=== PATIENT | female | born 2000 | race Caucasian/White ===

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

== ENCOUNTER 2021-01-31 21:30 | Emergency (ER) | payer MEDICAID ==
[2021-01-31 22:23] LABS: Appearance SLIGHTLY CLOUDY (CLEAR); Bilirubin NEGATIVE (NEGATIVE); Blood NEGATIVE Ery/ul (0-5); Epithelial Cells RARE /HPF (FEW); Glucose NEGATIVE (NEGATIVE); Hyaline Casts 0-2 /LPF (0-2); Ketones NEGATIVE (NEGATIVE); Leukocyte Esterase NEGATIVE (NEGATIVE); Mucus SLIGHT /HPF (NEGATIVE); Nitrite NEGATIVE (NEGATIVE); Protein,Urine Dip NEGATIVE (Negative); Specific Gravity 1.027 (1.005-1.025); Urobilinogen NEGATIVE mg/dL (0-1)
--- NOTE | 2021-01-31 23:28 | ERPHSYRPT ---
- History of Present Illness Time Seen by Provider: 01/31/21 21:45 Historian: patient Exam Limitations: no limitations Patient Subjective Stated Complaint: pt states she began having pain approx 1 hour prior to coming to er on her lt abd. states she has a history of ovarian cysts and pain feels similar Triage Nursing Assessment: pt alert and oriented, answers questions approp. pt ambulatory with steady gait noted. respiaitons nonlabored with lungs cta. abd soft and nontender to light palpation. bowel sounds present x4. Physician History: Patient is a 20-year-old female presents to our ED with complaints of left flank pain. Pain started approximately 1 hour prior to arrival. Pain described as an ache that is localized. No radiation. Patient has a history of ovarian cyst. Patient states the pain is similar. No trauma no fever. No nausea or vomiting. Patient is concerned as she states she had intercourse approximately 5 days ago. Patient wants to be sure she is not . Patient is otherwise heal thy and asymptomatic. Timing/Duration: today Activities at Onset: none Quality: aching Abdominal Pain Onset Location: flank Pain Radiation: no radiation Severity of Pain-Max: moderate Severity of Pain-Current: none Modifying Factors: Improves With: nothing Associated Symptoms: denies symptoms Previous symptoms: same symptoms as today Allergies/Adverse Reactions: Penicillins Allergy (Severe, Verified 11/05/20 00:05) Rash Home Medications: Fluoxetine HCl 20 mg [Prozac 20 MG] 30 mg PO DAILY 05/04/19 [History] Hx Tetanus, Diphtheria Vaccination/Date Given: Yes Hx Influenza Vaccination/Date Given: Yes Hx Pneumococcal Vaccination/Date Given: No Immunizations Up to Date: Yes Travel Risk - International Travel Have you traveled outside of the country in past 3 weeks: No - Coronavirus Screening Are you exhibiting any of the following symptoms?: No Close contact with a COVID-19 positive Pt in past 14-21 Days: No - Vaccine Status Have you recieved a Covid-19 vaccination: No - Review of Systems Constitutional: No Symptoms, No Fever, No Chills Eyes: No Symptoms Ears, Nose, & Throat: No Symptoms Respiratory: No Cough, No Dyspnea Cardiac: No Chest Pain, No Edema, No Syncope Abdominal/Gastrointestinal: No Abdominal Pain, No Nausea, No Vomiting, No Diarrhea Genitourinary Symptoms: No Dysuria Musculoskeletal: No Back Pain, No Neck Pain Skin: No Rash Neurological: No Dizziness, No Focal Weakness, No Sensory Changes Psychological: No Symptoms Endocrine: No Symptoms All Other Systems: Reviewed and Negative - Past Medical History Pertinent Past Medical History: Yes Neurological History: No Pertinent History ENT History: No Pertinent History Cardiac History: No Pertinent History Respiratory History: No Pertinent History Endocrine Medical History: No Pertinent History Musculoskeletal History: No Pertinent History GI Medical History: Gallbladder Disease History: No Pertinent History Psycho-Social History: Depression Female Reproductive Disorders: Menstrual Problems, Other Other Medical History: ovarian cyst - Past Surgical History Past Surgical History: Yes Neuro Surgical History: No Pertinent History Cardiac: No Pertinent History Respiratory: No Pertinent History Gastrointestinal: Cholecystectomy Genitourinary: No Pertinent History Musculoskeletal: No Pertinent History Female Surgical History: Other Other Surgical History: tonsils, ovarian cyst - Social History Smoking Status: Never smoker Exposure to second hand smoke: Yes Drug Use: none Patient Lives Alone: No Significant Family History: no pertinent family hx - Female History Hx Last Menstrual Period: last month Hx Now: No - Nursing Vital Signs Nursing Vital Signs: Initial Vital Signs Pulse Rate 107 H 01/31/21 21:37 Respiratory Rate 18 01/31/21 21:37 Blood Pressure 112/79 01/31/21 21:37 O2 Sat by Pulse Oximetry 98 01/31/21 21:37 Pain Scale Pain Intensity 4 - Physical Exam General Appearance: no apparent distress, alert Eye Exam: PERRL/EOMI, eyes nml inspection Ears, Nose, Throat Exam: normal ENT inspection, pharynx normal, moist mucous membranes Neck Exam: normal inspection, non-tender, supple, full range of motion Respiratory Exam: normal breath sounds, lungs clear, No respiratory distress Cardiovascular Exam: regular rate/rhythm, normal heart sounds Gastrointestinal/Abdomen Exam: soft, other (Mild tenderness to palpation at left flank.), No tenderness, No mass Back Exam: normal inspection, normal range of motion, No CVA tenderness, No vertebral tenderness Extremity Exam: normal inspection, normal range of motion, pelvis stable Neurologic Exam: alert, oriented x 3, cooperative, normal mood/affect, nml cerebellar function, sensation nml, No motor deficits Skin Exam: normal color, warm, dry Lymphatic Exam: No adenopathy SpO2 Interpretation: normal SpO2: 96 O2 Delivery: Room Air - Course Nursing assessment & vital signs reviewed: Yes - CT Exams Abdomen/Pelvis CT Interpretation: Tele-radiologist Report (There is a right ovarian cyst measuring 2.1 cm and left ovarian cyst measuring 1.[address] cm[address] No other acute CT pathology.) Ordered Tests: Active Orders 24 hr Category Date Time Status ABDOMEN AND PELVIS W/0 CONTRAS [CT] Stat Exams 01/31/21 22:14 Taken HCG,QUALITATIVE URINE Stat Lab 01/31/21 22:20 Completed UA W/RFX UR CULTURE Stat Lab 01/31/21 22:20 Completed Lab/Rad Data: Laboratory Results 01/31/21 01/31/21 Range/Units 22:20 22:20 Urine Color YELLOW (YELLOW) Urine Appearance SLIGHTLY CLOUDY (CLEAR) Urine pH 6.0 (5-6) Ur Specific [place] 1.027 (1.005-1.025) Urine Protein NEGATIVE (Negative) Urine Ketones NEGATIVE (NEGATIVE) Urine Blood NEGATIVE (0-5) Kavon/ul Urine Nitrite NEGATIVE (NEGATIVE) Urine Bilirubin NEGATIVE (NEGATIVE) Urine Urobilinogen NEGATIVE (0-1) mg/dL Ur Leukocyte Esterase NEGATIVE (NEGATIVE) Urine WBC (Auto) NONE (0-5) /HPF Urine RBC (Auto) NONE (0-2) /HPF U Hyaline Cast (Auto) 0-2 (0-2) /LPF U Epithel Cells (Auto) RARE (FEW) /HPF Urine Bacteria (Auto) NONE (NEGATIVE) /HPF Urine Mucus (Auto) SLIGHT (NEGATIVE) /HPF Urine Culture Reflexed NO (NO) Urine Glucose NEGATIVE (NEGATIVE) mg/dL Urine HCG, Qual NEGATIVE (Negative) - Progress Progress: improved Progress Note: Patient reassessed. Patient declined pain medication. She did not want a IM shot. She continues to decline pain medication. Patient sleeping states she feels well. CT scan shows bilateral ovarian cyst. Otherwise negative. Urinalysis negative. Vital stable. Will discharge at this time. Patient agrees to follow-up with her primary care doctor within 48 hours for reevaluation. 02/01/21 00:31 02/01/21 00:31 Counseled pt/family regarding: lab results, diagnosis, rad results - Departure Departure Disposition: Home Clinical Impression: Flank pain, Hepatic steatosis, Ovarian cyst Condition: Stable Critical Care Time: No Referrals: LUCY OLIVEIRA [Primary Care Provider] - Additional Instructions: Discharge/Care Plan ANTONI GUZMAN was seen on 02/01/21 in the Emergency Room. The patient was counseled regarding Diagnosis,Lab results, Imaging studies, need for follow up and when to return to the Emergency Room. Prescriptions given: Discharge Note I have spoken with the patient and/or caregivers. I have explained the patient's condition, diagnosis and treatment plan based on the information available to me at this time. I have answered the patient's and/or caregiver's questions and addressed any concerns. The patient and/or caregivers have as good understanding of the patient's diagnosis, condition and treatment plan as can be expected at this point. The vital signs have been stable. The patient's condition is stable and appropriate for discharge from the emergency department. The patient will pursue further outpatient evaluation with the primary care physician or other designated or consulting physician as outlined in the discharge instructions. The patient and/or caregivers are agreeable to this plan of care and follow-up instructions have been explained in detail. The patient and/or caregivers have received these instruction. The patient/and or caregivers are aware that any significant change in condition or worsening of symptoms should prompt an immediate return to this or the closest emergency department or call 911.
[2021-02-01 00:50] VITALS: BP 106/60; PULSE 87; O2SAT 98
--- NOTE | 2021-02-01 08:51 | XRAY ---
Indication: Left pelvic pain. Chronic bilateral flank pain. Multiple contiguous axial images obtained through the abdomen and pelvis without contrast using renal stone protocol. Comparison: June 04, 2020. Lung bases remain clear of infiltrate and effusion. Heart is not enlarged. No renal calculus or evidence for obstructive uropathy in either system. Noncontrasted stomach and bowel loops remain nonobstructed with normal appendix. New 2.5 cm right ovary cyst and stable 1.6 cm left ovary cyst. No free fluid/air. There remains diffuse fatty liver with central fatty sparing and previous cholecystectomy. Scattered small subcentimeter mesenteric nodes with minimal stranding favoring adenitis. Remaining liver, pancreas, spleen, adrenal glands, kidneys, ureters, bladder, uterus, and aorta appear unremarkable for noncontrast exam. Osseous structures intact. No ventral or inguinal hernias. Impression: 1. Continued negative for renal calculus or evidence for obstructive uropathy. 2. Again scattered small mesenteric nodes with minimal stranding favoring adenitis. 3. Bilateral ovary cysts, largest on the right. Pelvic sonogram may yield further information if clinically warranted. 4. Stable fatty liver. Comment: Preliminary interpretation was made by [facility]. No critical discrepancy.
== END 2021-02-01 00:51 | disposition home or self-care (01) ==
LOC: ED 21:30
DX: R10.9 Unspecified abdominal pain (principal); K76.0 Fatty (change of) liver, not elsewhere classified; N83.209 Unspecified ovarian cyst, unspecified side
CPT/HCPCS: 74176; 81001; 84703; 99284

== ENCOUNTER 2021-04-13 19:54 | Emergency (ER) | payer MEDICAID ==
[2021-04-13] MEDS ORDERED: Sodium Chloride 0.9% 1000 ML 1,000 ML IV STA (20:52)
[2021-04-13 21:06] LABS: Hemoglobin 12.8 gm/dl (12.0-16.0); Mean Cell Volume 85.5 fl (78-100); Mean Corpuscular Hemoglobin 26.1 pg (26-32); Mean Corpuscular Hgb Concent. 30.5 g/dl (32-36); Mean Platelet Volume 12.1 fl (7.5-11.0); Platelet Count 291 K/mm3 (150-450); Red Blood Count 4.91 M/mm3 (4.1-5.4); Red Cell Distribution Width 16.4 % (11.5-14.0); White Blood Count 8.4 K/mm3 (4.0-10.5)
[2021-04-13] MEDS ORDERED: Sodium Chloride 0.9% 1000 ML 1,000 ML ONE (21:10)
[2021-04-13] MEDS ORDERED: TORAdol 30 mg Injection ONE (21:10)
[2021-04-13] MEDS ORDERED: TORAdol 30 mg Injection IV ONE (21:12)
[2021-04-13 21:18] LABS: ALBUMIN 4.8 g/dL (3.5-5.0); ALKALINE PHOSPHATASE 100 U/L (38-126); AMYLASE 42 U/L (30-110); ANION GAP 17.4 MEQ/L (5-15); BLOOD UREA NITROGEN 14 mg/dL (7-17); CHLORIDE 105 mmol/L (98-107); Calcium 10.1 mg/dL (8.4-10.2); Carbon Dioxide 26 mmol/L (22-30); Creatinine 1 0.63 mg/dL (0.52-1.04); EST GLOMERULAR FILTRATION RATE > 60.0 ML/MIN; Glucose 117 mg/dL (74-106); LIPASE 14 U/L (23-300); Potassium 3.9 mmol/L (3.5-5.1); SGOT/AST 49 U/L (14-36); SGPT/ALT 40 U/L (0-35); SODIUM 145 mmol/L (137-145); Total Protein 8.1 g/dL (6.3-8.2)
--- NOTE | 2021-04-13 21:56 | ERPHSYRPT ---
- History of Present Illness Historian: patient Exam Limitations: no limitations Patient Subjective Stated Complaint: "My side hurts." Triage Nursing Assessment: 20 y/o obese white female from home with her boyfriend for two day onset of left flank/abdominal pain. Denied past history of kidney stones or abdominal pathologies. History of ovarian cysts and dysmenorrhea. Denied N/V/D. Denied contacting her family physician. She is a poor historian and unable to recall when her own menstrual cycle began. She continually asks her boyfriend how to answer her questions. Symmetrical chest expansion. heart tones S1/S2 RRR. Lungs vesicular with adequate airflow. Abdomen obese non-distended with bowel sounds present in all quadrants. No palpable tenderness, rebound, or guarding. Peripheral pulses +3 bilateral. Physician History: 20 yo wf w L sided abdominal pain x 1 day. Pain is sharp and 10 on scale. Lying down makes the pain worse. She denies N/V/D/fever/melena/hematochezia/. Pt currently on her period. Timing/Duration: yesterday Activities at Onset: rest Quality: sharpness Abdominal Pain Onset Location: LUQ, LLQ Pain Radiation: no radiation Severity of Pain-Max: severe Severity of Pain-Current: severe Modifying Factors: Improves With: lying down (Mkes worse) Associated Symptoms: No back, No chest pain, No diaphoresis, No diarrhea, No fever/chills, No fatigue, No headache, No heartburn, No loss of appetite, No nausea, No neck pain, No rash, No shortness of breath, No syncope, No vomiting, No weakness Previous symptoms: same symptoms as today Allergies/Adverse Reactions: Penicillins Allergy (Severe, Verified 04/13/21 20:03) Rash Home Medications: Fluoxetine HCl 20 mg [Prozac 20 MG] 30 mg PO DAILY 05/04/19 [History] Hx Tetanus, Diphtheria Vaccination/Date Given: Yes Hx Influenza Vaccination/Date Given: Yes Hx Pneumococcal Vaccination/Date Given: No Travel Risk - International Travel Have you traveled outside of the country in past 3 weeks: No - Coronavirus Screening Are you exhibiting any of the following symptoms?: No Close contact with a COVID-19 positive Pt in past 14-21 Days: No - Vaccine Status Have you recieved a Covid-19 vaccination: No - Review of Systems Constitutional: No Symptoms Eyes: No Symptoms Ears, Nose, & Throat: No Symptoms Respiratory: No Symptoms Cardiac: No Symptoms Genitourinary Symptoms: No Symptoms Musculoskeletal: No Symptoms Skin: No Symptoms Neurological: No Symptoms Psychological: No Symptoms Endocrine: No Symptoms Hematologic/Lymphatic: No Symptoms Immunological/Allergic: No Symptoms - Past Medical History Pertinent Past Medical History: Yes Neurological History: No Pertinent History ENT History: No Pertinent History Cardiac History: No Pertinent History Respiratory History: No Pertinent History Endocrine Medical History: No Pertinent History Musculoskeletal History: No Pertinent History GI Medical History: Gallbladder Disease History: No Pertinent History Psycho-Social History: Depression Female Reproductive Disorders: Menstrual Problems, Other Other Medical History: ovarian cyst - Past Surgical History Past Surgical History: Yes Neuro Surgical History: No Pertinent History Cardiac: No Pertinent History Respiratory: No Pertinent History Gastrointestinal: Cholecystectomy Genitourinary: No Pertinent History Musculoskeletal: No Pertinent History Female Surgical History: Other Other Surgical History: tonsils, ovarian cyst - Social History Smoking Status: Current every day smoker Exposure to second hand smoke: Yes Drug Use: none Patient Lives Alone: No Significant Family History: no pertinent family hx - Female History Hx Last Menstrual Period: 04/09/21 Hx Now: No - Nursing Vital Signs Nursing Vital Signs: Initial Vital Signs Temperature 97.7 F 04/13/21 19:54 Pulse Rate 104 H 04/13/21 19:54 Respiratory Rate 18 04/13/21 19:54 Blood Pressure 129/82 04/13/21 19:54 O2 Sat by Pulse Oximetry 96 04/13/21 19:54 Pain Scale Pain Intensity 5 - Physical Exam General Appearance: no apparent distress Eye Exam: PERRL/EOMI, eyes nml inspection Ears, Nose, Throat Exam: normal ENT inspection, TMs normal, pharynx normal, moist mucous membranes Neck Exam: normal inspection, non-tender, supple, full range of motion, No meningismus, No mass, No Brudzinski, No Kernig's Respiratory Exam: normal breath sounds, lungs clear, airway intact Cardiovascular Exam: regular rate/rhythm, normal heart sounds, normal peripheral pulses, No murmur Gastrointestinal/Abdomen Exam: soft, tenderness (Mild LUQ/LLQ ttp wo guarding or rebound) Back Exam: normal inspection, normal range of motion, No CVA tenderness, No vertebral tenderness Extremity Exam: normal inspection, normal range of motion Neurologic Exam: alert, oriented x 3, cooperative, pharmacy services representative II-XII nml as tested, normal mood/affect, nml cerebellar function, nml station & gait, sensation nml, No motor deficits, No sensory deficit Skin Exam: normal color, warm, dry, No rash Lymphatic Exam: No adenopathy SpO2 Interpretation: normal SpO2: 99 O2 Delivery: Room Air - Course Nursing assessment & vital signs reviewed: Yes Ordered Tests: Active Orders 24 hr Category Date Time Status IV Insertion STAT Care 04/13/21 20:33 Completed AMYLASE Stat Lab 04/13/21 20:52 Completed CBC W DIFF Stat Lab 04/13/21 20:52 Completed CMP Stat Lab 04/13/21 20:52 Completed CULTURE,URINE Stat Lab 04/13/21 22:05 Received LIPASE Stat Lab 04/13/21 20:52 Completed Manual Differential NC Stat Lab 04/13/21 20:52 Completed UA W/RFX UR CULTURE Stat Lab 04/13/21 22:05 Completed Medication Summary Discontinued Medications Generic Name Dose Route Start Last Admin Trade Name Rohini PRN Reason Stop Dose Admin Sodium Chloride 1,000 mls @ 999 mls/hr 04/13/21 20:52 04/13/21 22:49 Sodium Chloride 0.9% 1000 Ml IV 04/13/21 21:52 Infused .Q1H1M STA Infusion Sodium Chloride Confirm 04/13/21 21:10 Sodium Chloride 0.9% 1000 Ml Administered 04/13/21 21:11 Dose 1,000 mls @ ud .ROUTE .STK-MED ONE Ketorolac Tromethamine 30 mg 04/13/21 21:12 04/13/21 21:13 Toradol 30 Mg Injection IV 04/13/21 21:13 30 mg STAT ONE Administration Ketorolac Tromethamine Confirm 04/13/21 21:10 Toradol 30 Mg Injection Administered 04/13/21 21:11 Dose 30 mg .ROUTE .STK-MED ONE Nitrofurantoin Macrocrystals 100 mg 04/13/21 22:34 04/13/21 22:48 Macrobid 100mg Capsule PO 04/13/21 22:35 100 mg STAT ONE Administration Nitrofurantoin Macrocrystals Confirm 04/13/21 22:46 Macrobid 100mg Capsule Administered 04/13/21 22:47 Dose 100 mg .ROUTE .STK-MED ONE Lab/Rad Data: Laboratory Result Diagrams 04/13/21 20:52 04/13/21 20:52 Laboratory Results 04/13/21 04/13/21 04/13/21 Range/Units Unknown 22:05 20:52 WBC (4.0-10.5) K/mm3 RBC (4.1-5.4) M/mm3 Hgb (12.0-16.0) gm/dl Hct (35-47) % MCV (78-100) fl MCH (26-32) pg MCHC (32-36) g/dl RDW (11.5-14.0) % Plt Count (150-450) K/mm3 MPV (7.5-11.0) fl Segmented Neutrophils (36.0-66.0) % Lymphocytes (Manual) (24-44) % Monocytes (Manual) (0.0-12.0) % Eosinophils (Manual) (0.00-3.0) % Basophils (Manual) (0.0-1.0) % Platelet Estimate (NORMAL) RBC Morphology Sodium 145 (137-145) mmol/L Potassium 3.9 (3.5-5.1) mmol/L Chloride 105 (98-107) mmol/L Carbon Dioxide 26 (22-30) mmol/L Anion Gap 17.4 H (5-15) MEQ/L BUN 14 (7-17) mg/dL Creatinine 0.63 (0.52-1.04) mg/dL Estimated GFR > 60.0 ML/MIN Glucose 117 H (74-106) mg/dL Calcium 10.1 (8.4-10.2) mg/dL Total Bilirubin 0.20 (0.2-1.3) mg/dL AST 49 H (14-36) U/L ALT 40 H (0-35) U/L Alkaline Phosphatase 100 (38-126) U/L Serum Total Protein 8.1 (6.3-8.2) g/dL Albumin 4.8 (3.5-5.0) g/dL Amylase 42 (30-110) U/L Lipase 14 L (23-300) U/L Serum , Qual NEGATIVE (Negative) Urine Color YELLOW (YELLOW) Urine Appearance CLOUDY (CLEAR) Urine pH 5.0 (5-6) Ur Specific [place] 1.028 (1.005-1.025) Urine Protein 30 (Negative) Urine Ketones NEGATIVE (NEGATIVE) Urine Blood LARGE (0-5) Kavon/ul Urine Nitrite NEGATIVE (NEGATIVE) Urine Bilirubin NEGATIVE (NEGATIVE) Urine Urobilinogen NEGATIVE (0-1) mg/dL Ur Leukocyte Esterase SMALL (NEGATIVE) Urine WBC (Auto) 16-25 (0-5) /HPF Urine RBC (Auto) >101 (0-2) /HPF U Epithel Cells (Auto) RARE (FEW) /HPF Urine Bacteria (Auto) MODERATE (NEGATIVE) /HPF Urine Mucus (Auto) MANY (NEGATIVE) /HPF Urine Culture Reflexed YES (NO) Urine Glucose NEGATIVE (NEGATIVE) mg/dL 04/13/21 Range/Units 20:52 WBC 8.4 (4.0-10.5) K/mm3 RBC 4.91 (4.1-5.4) M/mm3 Hgb 12.8 (12.0-16.0) gm/dl Hct 42.0 (35-47) % MCV 85.5 (78-100) fl MCH 26.1 (26-32) pg MCHC 30.5 L (32-36) g/dl RDW 16.4 H (11.5-14.0) % Plt Count 291 (150-450) K/mm3 MPV 12.1 H (7.5-11.0) fl Segmented Neutrophils 61 (36.0-66.0) % Lymphocytes (Manual) 31 (24-44) % Monocytes (Manual) 5 (0.0-12.0) % Eosinophils (Manual) 1 (0.00-3.0) % Basophils (Manual) 2 H (0.0-1.0) % Platelet Estimate NORMAL (NORMAL) RBC Morphology NORMAL Sodium (137-145) mmol/L Potassium (3.5-5.1) mmol/L Chloride (98-107) mmol/L Carbon Dioxide (22-30) mmol/L Anion Gap (5-15) MEQ/L BUN (7-17) mg/dL Creatinine (0.52-1.04) mg/dL Estimated GFR ML/MIN Glucose (74-106) mg/dL Calcium (8.4-10.2) mg/dL Total Bilirubin (0.2-1.3) mg/dL AST (14-36) U/L ALT (0-35) U/L Alkaline Phosphatase (38-126) U/L Serum Total Protein (6.3-8.2) g/dL Albumin (3.5-5.0) g/dL Amylase (30-110) U/L Lipase (23-300) U/L Serum , Qual (Negative) Urine Color (YELLOW) Urine Appearance (CLEAR) Urine pH (5-6) Ur Specific [place] (1.005-1.025) Urine Protein (Negative) Urine Ketones (NEGATIVE) Urine Blood (0-5) Kavon/ul Urine Nitrite (NEGATIVE) Urine Bilirubin (NEGATIVE) Urine Urobilinogen (0-1) mg/dL Ur Leukocyte Esterase (NEGATIVE) Urine WBC (Auto) (0-5) /HPF Urine RBC (Auto) (0-2) /HPF U Epithel Cells (Auto) (FEW) /HPF Urine Bacteria (Auto) (NEGATIVE) /HPF Urine Mucus (Auto) (NEGATIVE) /HPF Urine Culture Reflexed (NO) Urine Glucose (NEGATIVE) mg/dL - Progress Progress: improved Progress Note: 04/13/21 22:30 30mg IV Toradol w improvement 04/13/21 22:35 100mg po Macrobid Counseled pt/family regarding: lab results, diagnosis, need for follow-up - Departure Departure Disposition: Home Clinical Impression: Urinary tract infection Condition: Stable Critical Care Time: No Referrals: LUCY OLIVEIRA [Primary Care Provider] - Instructions: Urinary Tract Infection, Adult (DC) Additional Instructions: Follow up with your family MD on Friday Return to ER for increasing pain or temperature greater than 100.5 Prescriptions: Nitrofurantoin Macro 100 mg [Macrobid 100MG Capsule] 100 mg PO BID 5 Days #10 cap
[2021-04-13 22:16] LABS: Appearance CLOUDY (CLEAR); Bacteria MODERATE /HPF (NEGATIVE); Bilirubin NEGATIVE (NEGATIVE); Blood LARGE Ery/ul (0-5); Epithelial Cells RARE /HPF (FEW); Glucose NEGATIVE (NEGATIVE); Ketones NEGATIVE (NEGATIVE); Leukocyte Esterase SMALL (NEGATIVE); Mucus MANY /HPF (NEGATIVE); Nitrite NEGATIVE (NEGATIVE); Protein,Urine Dip 30 (Negative); Specific Gravity 1.028 (1.005-1.025); Urobilinogen NEGATIVE mg/dL (0-1)
[2021-04-13 22:17] LABS: RBC >101 /HPF (0-2)
[2021-04-13] MEDS ORDERED: Macrobid 100MG Capsule PO ONE (22:34)
[2021-04-13] MEDS ORDERED: Macrobid 100MG Capsule ONE (22:46)
[2021-04-13 22:52] VITALS: BP 97/79; PULSE 78
[2021-04-13 23:52] LABS: Basophil 2 % (0.0-1.0); Eosinophil 1 % (0.00-3.0); Lymphocytes 31 % (24-44); Monocyte 5 % (0.0-12.0); Neutrophils 61 % (36.0-66.0); Platelet Estimate NORMAL (NORMAL); Total Cells Counted 100
[2021-04-14 01:29] VITALS: O2SAT 99
== END 2021-04-13 22:57 | disposition home or self-care (01) ==
LOC: ED 19:54
DX: N39.0 Urinary tract infection, site not specified (principal)
CPT/HCPCS: 36000; 36415; 80053; 81001; 81025; 82150; 83690; 85025; 87086; 96360; 96374; 99284; J1885; A9270-GY

== ENCOUNTER 2021-04-20 01:21 | Emergency (ER) | payer MEDICAID ==
[2021-04-20 01:43] VITALS: O2SAT 97
--- NOTE | 2021-04-20 01:47 | ERPHSYRPT ---
- History of Present Illness Time Seen by Provider: 04/20/21 01:36 Source: patient Exam Limitations: no limitations Patient Subjective Stated Complaint: pt states "I feel kicks." Triage Nursing Assessment: pt ambulated into the er; pt is axo x4; c/o "feeling kicks."; pt states abd pain 9/10; pt states that she wakes up with nausea; pt states that she came in because she is ; pt has tenderness to RLQ and LLQ with palpitation; hyperactive bowel sounds in all quads; pt denies V/D; pt states that pain began 2 days ago; vitals wnl Physician History: 20 years old with history of anxiety/depression presented in the ER for test. Patient reports she is feeling kicks in the lower abdomen for the last couple of days. Also reports moderate intensity sharp pain in the lower abdomen at times comes and goes without any significant aggravating or relieving factor. Reports increased urinary frequency and some dysuria. No hematuria. Denies any nausea or vomiting. On my evaluation patient reports that he is here only to get herself checked out although LMP was 2 weeks ago. Timing/Duration: day(s), intermittent Severity: moderate Modifying Factors: Improves With: nothing Associated Symptoms: abdominal pain Allergies/Adverse Reactions: Penicillins Allergy (Severe, Verified 04/20/21 01:29) Rash Hx Tetanus, Diphtheria Vaccination/Date Given: Yes Hx Influenza Vaccination/Date Given: Yes Hx Pneumococcal Vaccination/Date Given: No Travel Risk - International Travel Have you traveled outside of the country in past 3 weeks: No - Coronavirus Screening Are you exhibiting any of the following symptoms?: No Close contact with a COVID-19 positive Pt in past 14-21 Days: No - Vaccine Status Have you recieved a Covid-19 vaccination: No - Review of Systems Constitutional: No Symptoms Ears, Nose, & Throat: No Symptoms Respiratory: No Symptoms Cardiac: No Symptoms Abdominal/Gastrointestinal: Abdominal Pain Genitourinary Symptoms: Dysuria, Frequency, No Hematuria, No Flank Pain Musculoskeletal: No Symptoms Skin: No Symptoms Neurological: No Symptoms Psychological: Anxiety, Depression Endocrine: No Symptoms Hematologic/Lymphatic: No Symptoms - Past Medical History Pertinent Past Medical History: Yes Neurological History: No Pertinent History ENT History: No Pertinent History Cardiac History: No Pertinent History Respiratory History: No Pertinent History Endocrine Medical History: No Pertinent History Musculoskeletal History: No Pertinent History GI Medical History: Gallbladder Disease History: No Pertinent History Psycho-Social History: Depression Female Reproductive Disorders: Menstrual Problems, Other Other Medical History: ovarian cyst - Past Surgical History Past Surgical History: Yes Neuro Surgical History: No Pertinent History Cardiac: No Pertinent History Respiratory: No Pertinent History Gastrointestinal: Cholecystectomy Genitourinary: No Pertinent History Musculoskeletal: No Pertinent History Female Surgical History: Other Other Surgical History: tonsils, ovarian cyst - Social History Smoking Status: Current every day smoker Exposure to second hand smoke: Yes Drug Use: none Patient Lives Alone: No Significant Family History: no pertinent family hx - Female History Hx Now: No (unsure) - Nursing Vital Signs Nursing Vital Signs: Initial Vital Signs Temperature 98.4 F 04/20/21 01:30 Pulse Rate 97 H 04/20/21 01:30 Respiratory Rate 18 04/20/21 01:30 Blood Pressure 132/80 04/20/21 01:30 O2 Sat by Pulse Oximetry 97 04/20/21 01:30 Pain Scale Pain Intensity 9 - Physical Exam General Appearance: no apparent distress, alert, anxiety Ears, Nose, Throat Exam: normal ENT inspection Neck Exam: normal inspection, supple, full range of motion Respiratory Exam: normal breath sounds, lungs clear Cardiovascular Exam: regular rate/rhythm, normal heart sounds Gastrointestinal/Abdomen Exam: soft, normal bowel sounds, tenderness (Minimal ott prapubic discomfort), No distention, No guarding Back Exam: normal inspection, normal range of motion Extremity Exam: normal inspection, normal range of motion Neurologic Exam: alert, oriented x 3, cooperative Skin Exam: normal color SpO2 Interpretation: normal SpO2: 97 O2 Delivery: Room Air Ordered Tests: Active Orders 24 hr Category Date Time Status HCG,QUALITATIVE URINE Stat Lab 04/20/21 01:37 Completed UA W/RFX UR CULTURE Stat Lab 04/20/21 01:37 Completed Lab/Rad Data: Laboratory Results 04/20/21 04/20/21 Range/Units 01:37 01:37 Urine Color YELLOW (YELLOW) Urine Appearance SLIGHTLY CLOUDY (CLEAR) Urine pH 6.0 (5-6) Ur Specific [place] 1.025 (1.005-1.025) Urine Protein NEGATIVE (Negative) Urine Ketones NEGATIVE (NEGATIVE) Urine Blood NEGATIVE (0-5) Kavon/ul Urine Nitrite NEGATIVE (NEGATIVE) Urine Bilirubin NEGATIVE (NEGATIVE) Urine Urobilinogen NEGATIVE (0-1) mg/dL Ur Leukocyte Esterase TRACE (NEGATIVE) Urine WBC (Auto) 16-25 (0-5) /HPF Urine RBC (Auto) 0-2 (0-2) /HPF U Epithel Cells (Auto) RARE (FEW) /HPF Urine Bacteria (Auto) NONE (NEGATIVE) /HPF Urine Mucus (Auto) SLIGHT (NEGATIVE) /HPF Urine Culture Reflexed NO (NO) Urine Glucose 50 (NEGATIVE) mg/dL Urine HCG, Qual NEGATIVE (Negative) - Progress Progress: unchanged Progress Note: 04/20/21 01:59 I did not appreciate any abdominal tenderness. She does not want any pain medication. She just want to get test done which turned out to be negative. I think is too early to be after last cycle. Also she is on control pills. She is advised to follow-up with her primary care and may need to follow-up with OB to get off of control pills if she wants to get . She has a stable vitals. No peritoneal signs. She does have UTI/cystitis causing some discomfort and started on Bactrim. Do not think she needs any imaging and is stable for discharge. Counseled pt/family regarding: diagnosis, need for follow-up - Departure Departure Disposition: Home Clinical Impression: Urinary tract infection Qualifiers: Urinary tract infection type: acute cystitis Hematuria presence: without hematuria Qualified Code(s): N30.00 - Acute cystitis without hematuria Condition: Stable Critical Care Time: No Referrals: LUCY OLIVEIRA [Primary Care Provider] - Follow Up with PCP/3 days VALE KUNZ DO [ACTIVE STAFF] - (Early next week for reevaluation) Instructions: Symptoms, Urinary Tract Infection, Adult (DC), Acute Cystitis (DC) Additional Instructions: Drink plenty of fluids. Take Tylenol as needed. Follow-up with primary care and OB for reevaluation. Return to ER for any worsening. Prescriptions: Smz/Tmp Ds Tablet [Bactrim Ds Tablet] 1 udtab PO BID #14 tablet
[2021-04-20 01:48] LABS: Appearance SLIGHTLY CLOUDY (CLEAR); Bilirubin NEGATIVE (NEGATIVE); Blood NEGATIVE Ery/ul (0-5); Epithelial Cells RARE /HPF (FEW); Glucose 50 mg/dL (NEGATIVE); Ketones NEGATIVE (NEGATIVE); Leukocyte Esterase TRACE (NEGATIVE); Mucus SLIGHT /HPF (NEGATIVE); Nitrite NEGATIVE (NEGATIVE); Protein,Urine Dip NEGATIVE (Negative); RBC 0-2 /HPF (0-2); Specific Gravity 1.025 (1.005-1.025); Urobilinogen NEGATIVE mg/dL (0-1)
[2021-04-20] MEDS ORDERED: BACTRIM DS TABLET PO STA (01:52)
[2021-04-20] MEDS ORDERED: BACTRIM DS TABLET PO ONE (01:53)
[2021-04-20 01:58] VITALS: BP 137/69; PULSE 72
== END 2021-04-20 02:05 | disposition home or self-care (01) ==
LOC: ED 01:21
DX: N39.0 Urinary tract infection, site not specified (principal)
CPT/HCPCS: 81001; 84703; 99283; A9270-GY

== ENCOUNTER 2021-05-13 21:41 | Emergency (ER) | payer MEDICAID ==
--- NOTE | 2021-05-13 22:39 | ERPHSYRPT ---
- History of Present Illness Time Seen by Provider: 05/13/21 22:08 Source: patient Exam Limitations: no limitations Patient Subjective Stated Complaint: pt states "I feel something in my stomach and have morning sickness." Triage Nursing Assessment: pt ambulated into the er; pt is axo x4; c/o possible ; pt states "I have a funny feeling in my stomach."; pt states "I have morning sickness."; abd is soft, round; active bowel sounds; denies abd pain; vitals wnl Physician History: 20 years old female presented in the ER for test. Patient reports she is having morning sickness, bloating sensation in the abdomen and some cramping along with missing her cycle earlier this month. No vaginal bleeding or discharge. Allergies/Adverse Reactions: Penicillins Allergy (Severe, Verified 05/13/21 22:12) Rash Home Medications: No Reportable Medications [No Reported Medications] 05/13/21 [History] Hx Tetanus, Diphtheria Vaccination/Date Given: Yes Hx Influenza Vaccination/Date Given: Yes Hx Pneumococcal Vaccination/Date Given: No Travel Risk - International Travel Have you traveled outside of the country in past 3 weeks: No - Coronavirus Screening Are you exhibiting any of the following symptoms?: No Close contact with a COVID-19 positive Pt in past 14-21 Days: No - Vaccine Status Have you recieved a Covid-19 vaccination: No - Review of Systems Constitutional: No Symptoms Ears, Nose, & Throat: No Symptoms Respiratory: No Symptoms Cardiac: No Symptoms Abdominal/Gastrointestinal: No Symptoms Musculoskeletal: No Symptoms Endocrine: No Symptoms - Past Medical History Pertinent Past Medical History: Yes Neurological History: No Pertinent History ENT History: No Pertinent History Cardiac History: No Pertinent History Respiratory History: No Pertinent History Endocrine Medical History: No Pertinent History Musculoskeletal History: No Pertinent History GI Medical History: Gallbladder Disease History: No Pertinent History Psycho-Social History: Depression Female Reproductive Disorders: Menstrual Problems, Other Other Medical History: ovarian cyst - Past Surgical History Past Surgical History: Yes Neuro Surgical History: No Pertinent History Cardiac: No Pertinent History Respiratory: No Pertinent History Gastrointestinal: Cholecystectomy Genitourinary: No Pertinent History Musculoskeletal: No Pertinent History Female Surgical History: Other Other Surgical History: tonsils, ovarian cyst - Social History Smoking Status: Current every day smoker Exposure to second hand smoke: Yes Drug Use: none Patient Lives Alone: No Significant Family History: no pertinent family hx - Female History Hx Now: No (unsure) - Nursing Vital Signs Nursing Vital Signs: Initial Vital Signs Temperature 98.8 F 05/13/21 22:13 Pulse Rate 89 05/13/21 22:13 Respiratory Rate 18 05/13/21 22:13 Blood Pressure 122/78 05/13/21 22:13 O2 Sat by Pulse Oximetry 97 05/13/21 22:13 Pain Scale Pain Intensity 0 - Physical Exam General Appearance: no apparent distress, alert Eye Exam: eyes nml inspection Neck Exam: normal inspection, full range of motion Respiratory Exam: normal breath sounds, lungs clear Cardiovascular Exam: regular rate/rhythm, normal heart sounds Gastrointestinal/Abdomen Exam: soft, normal bowel sounds, No tenderness Extremity Exam: normal inspection Neurologic Exam: alert, oriented x 3, cooperative Skin Exam: normal color SpO2 Interpretation: normal SpO2: 97 O2 Delivery: Room Air Ordered Tests: Active Orders 24 hr Category Date Time Status HCG,QUALITATIVE URINE Stat Lab 05/13/21 22:13 Completed Lab/Rad Data: Laboratory Results 05/13/21 Range/Units 22:13 Urine HCG, Qual NEGATIVE (Negative) - Progress Progress: unchanged Progress Note: 05/13/21 22:38 Urine is negative. She is counseled about outpatient follow-up as her cycle may be irregular. Counseled pt/family regarding: lab results, diagnosis, need for follow-up - Departure Departure Disposition: Home Clinical Impression: Irregular periods/menstrual cycles Condition: Stable Critical Care Time: No Referrals: LUCY OLIVEIRA [Primary Care Provider] - Follow Up with PCP/3 days Instructions: Symptoms
[2021-05-13 22:54] VITALS: BP 120/74; PULSE 87; O2SAT 96
== END 2021-05-13 22:46 | disposition home or self-care (01) ==
LOC: ED 21:41
DX: N92.6 Irregular menstruation, unspecified (principal)
CPT/HCPCS: 84703; 99283

== ENCOUNTER 2021-06-17 15:54 | Emergency (ER) | payer MEDICAID ==
[2021-06-17 16:04] VITALS: BP 134/94; PULSE 106; O2SAT 97
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
== END 2021-06-17 16:24 | disposition home or self-care (01) ==
LOC: ED 15:54
DX: S61.215A Laceration without foreign body of left ring finger without damage to nail, initial encounter (principal); W26.0XXA Contact with knife, initial encounter
CPT/HCPCS: 99283

== ENCOUNTER 2021-06-23 21:26 | Emergency (ER) | payer MEDICAID ==
--- NOTE | 2021-06-23 22:04 | ERPHSYRPT ---
- History of Present Illness Time Seen by Provider: 06/23/21 21:33 Source: patient Exam Limitations: no limitations Patient Subjective Stated Complaint: pt states "I took a test home and it was positive. I am having stomach pain." Triage Nursing Assessment: pt ambulated into the er; pt is axo x4; c/o abd pain; pt states 9/10 pain to lower abd; pt states that abd pain began on friday; pt states that she took a home test and it was positive; pt states that pain is in lower abd and back; pt denies urination touble; pt denies N/V/D; abd is round, soft, tender with palpation to lower abd; urine yellow and cloudy; vitals wnl Physician History: 20 years old with history of anxiety depression presented to the ER with chief complaint of suprapubic discomfort with radiation to the back off and on for the last 3 to 4 days with a positive test done at home. Reports morning sickness. Denies any vaginal bleeding or discharge. No history of STDs. Denies any urinary symptoms. Pain is mild to moderate and better with taking Tylenol. Currently she is having minimal pain. Wants to confirm her test. Timing/Duration: day(s) (4), intermittent Activites at Onset: rest Quality: dullness Onset Location: suprapubic Pain Radiation: back Severity of Pain-Max: moderate Severity of Pain-Current: mild Prior abdominal problems: none Modifying Factors: Improves With: nothing Associated Symptoms: lower back pain, No fever, No diaphoresis, No loss of bladder control, No vaginal discharge Allergies/Adverse Reactions: Penicillins Allergy (Severe, Verified 06/23/21 21:41) Rash Home Medications: Fluoxetine HCl 20 mg [Prozac 20 MG] 1 ea DAILY 06/17/21 [History] Lurasidone HCl [Latuda] 1 ea DAILY 06/17/21 [History] Hx Tetanus, Diphtheria Vaccination/Date Given: Yes Hx Influenza Vaccination/Date Given: Yes Hx Pneumococcal Vaccination/Date Given: No Travel Risk - International Travel Have you traveled outside of the country in past 3 weeks: No - Coronavirus Screening Are you exhibiting any of the following symptoms?: No Close contact with a COVID-19 positive Pt in past 14-21 Days: No - Vaccine Status Have you recieved a Covid-19 vaccination: Yes Sap Bw Bi Developer: Moderna - Vaccination Dates Date of 2cond Vaccination (if applicable): unknown - Review of Systems Constitutional: No Symptoms Ears, Nose, & Throat: No Symptoms Respiratory: No Symptoms Cardiac: No Symptoms Abdominal/Gastrointestinal: Abdominal Pain, Nausea, Vomiting Genitourinary Symptoms: No Symptoms Skin: No Symptoms Neurological: No Symptoms Endocrine: No Symptoms Hematologic/Lymphatic: No Symptoms - Past Medical History Pertinent Past Medical History: Yes Neurological History: No Pertinent History ENT History: No Pertinent History Cardiac History: No Pertinent History Respiratory History: No Pertinent History Endocrine Medical History: No Pertinent History Musculoskeletal History: No Pertinent History GI Medical History: Gallbladder Disease History: No Pertinent History Psycho-Social History: Depression Female Reproductive Disorders: Menstrual Problems, Other Other Medical History: ovarian cyst - Past Surgical History Past Surgical History: Yes Neuro Surgical History: No Pertinent History Cardiac: No Pertinent History Respiratory: No Pertinent History Gastrointestinal: Cholecystectomy Genitourinary: No Pertinent History Musculoskeletal: No Pertinent History Female Surgical History: Other Other Surgical History: tonsils, ovarian cyst - Social History Smoking Status: Never smoker Exposure to second hand smoke: Yes Drug Use: marijuana Patient Lives Alone: No Significant Family History: no pertinent family hx - Female History Hx Now: Yes (home test positive) - Nursing Vital Signs Nursing Vital Signs: Initial Vital Signs Temperature 97.6 F 06/23/21 21:43 Pulse Rate 91 H 06/23/21 21:43 Respiratory Rate 16 06/23/21 21:43 Blood Pressure 125/89 06/23/21 21:43 O2 Sat by Pulse Oximetry 97 06/23/21 21:43 Pain Scale Pain Intensity 9 - Physical Exam General Appearance: no apparent distress, alert Eye Exam: PERRL/EOMI Ears, Nose, Throat Exam: normal ENT inspection Neck Exam: normal inspection, full range of motion Respiratory Exam: normal breath sounds, lungs clear Cardiovascular Exam: regular rate/rhythm, normal heart sounds Gastrointestinal/Abdomen Exam: soft, normal bowel sounds, No tenderness Back Exam: normal inspection, normal range of motion Extremity Exam: normal inspection, normal range of motion Neurologic Exam: alert, oriented x 3, cooperative Skin Exam: normal color SpO2 Interpretation: normal SpO2: 97 O2 Delivery: Room Air Ordered Tests: Active Orders 24 hr Category Date Time Status CULTURE,URINE Stat Lab 06/23/21 21:40 Received HCG,QUALITATIVE URINE Stat Lab 06/23/21 21:39 Completed UA W/RFX UR CULTURE Stat Lab 06/23/21 21:40 Completed Lab/Rad Data: Laboratory Results 06/23/21 06/23/21 Range/Units 21:40 21:39 Urine Color YELLOW (YELLOW) Urine Appearance SLIGHTLY CLOUDY (CLEAR) Urine pH 6.0 (5-6) Ur Specific Hay 1.024 (1.005-1.025) Urine Protein NEGATIVE (Negative) Urine Ketones NEGATIVE (NEGATIVE) Urine Blood NEGATIVE (0-5) Kavon/ul Urine Nitrite NEGATIVE (NEGATIVE) Urine Bilirubin NEGATIVE (NEGATIVE) Urine Urobilinogen NEGATIVE (0-1) mg/dL Ur Leukocyte Esterase SMALL (NEGATIVE) Urine WBC (Auto) 16-25 (0-5) /HPF Urine RBC (Auto) 0-2 (0-2) /HPF U Epithel Cells (Auto) RARE (FEW) /HPF Urine Bacteria (Auto) RARE (NEGATIVE) /HPF Urine Mucus (Auto) SLIGHT (NEGATIVE) /HPF Urine Culture Reflexed YES (NO) Urine Glucose NEGATIVE (NEGATIVE) mg/dL Urine HCG, Qual NEGATIVE (Negative) - Progress Progress: re-examined, unchanged Air Movement: good Progress Note: 06/23/21 22:15 Urine is negative. She has minimal tenderness in suprapubic area and does have UTI. Started on Macrobid. Recommended outpatient follow-up. Recommend Tylenol as needed. Discussed signs symptoms of worsening needing return to ER which she seems understanding. She does not have any right lower quadrant tenderness, guarding or rebound. Do not think she needs any other work-up and is stable for discharge. Antibiotics given: Yes Counseled pt/family regarding: lab results, diagnosis, need for follow-up - Departure Departure Disposition: Home Clinical Impression: Acute cystitis Qualifiers: Hematuria presence: without hematuria Qualified Code(s): N30.00 - Acute cystitis without hematuria Condition: Stable Critical Care Time: No Referrals: MARCUS ANDERSON NP [Primary Care Provider] - (In 2 days for reevaluation) Instructions: Acute Abdomen (Belly Pain), Adult (DC), Acute Cystitis (DC) Additional Instructions: Take Tylenol as needed. Follow-up with primary care for reevaluation. Return to ER for worsening pain, difficulty urination or if develop fever chills etc. Prescriptions: Nitrofurantoin Macro 100 mg [Macrobid 100MG Capsule] 100 mg PO BID #14 cap
[2021-06-23 22:09] LABS: Appearance SLIGHTLY CLOUDY (CLEAR); Bacteria RARE /HPF (NEGATIVE); Bilirubin NEGATIVE (NEGATIVE); Blood NEGATIVE Ery/ul (0-5); Epithelial Cells RARE /HPF (FEW); Glucose NEGATIVE (NEGATIVE); Ketones NEGATIVE (NEGATIVE); Leukocyte Esterase SMALL (NEGATIVE); Mucus SLIGHT /HPF (NEGATIVE); Nitrite NEGATIVE (NEGATIVE); Protein,Urine Dip NEGATIVE (Negative); RBC 0-2 /HPF (0-2); Specific Gravity 1.024 (1.005-1.025); Urobilinogen NEGATIVE mg/dL (0-1)
[2021-06-23] MEDS ORDERED: Macrobid 100MG Capsule PO ONE (22:14)
[2021-06-23] MEDS ORDERED: Macrobid 100MG Capsule ONE (22:21)
[2021-06-23 22:28] VITALS: BP 114/75; PULSE 80; O2SAT 96
== END 2021-06-23 22:32 | disposition home or self-care (01) ==
LOC: ED 21:26
DX: N30.00 Acute cystitis without hematuria (principal); M54.5 Low back pain; Z79.899 Other long term (current) drug therapy; R11.2 Nausea with vomiting, unspecified
CPT/HCPCS: 81001; 84703; 87086; 99283; A9270-GY

== ENCOUNTER 2022-03-08 21:43 | Emergency (ER) | payer MEDICAID ==
--- NOTE | 2022-03-08 21:48 | ERPHSYRPT ---
- History of Present Illness Time Seen by Provider: 03/08/22 21:48 Source: patient, EMS Exam Limitations: no limitations Physician History: This is a 21-year-old white female patient who received her second (booster) COVID-19 vaccine yesterday. Today she feels a little short of breath and has a cough and sore throat. She has body aches as well. He has had no nausea vomiting or diarrhea. She has no chest pain. She denies no earaches. Patient was brought into the hospital by EMS. Timing/Duration: today Severity of Dyspnea-Max: mild Severity of Dyspnea-Current: mild Possible Cause: no prior episodes Modifying Factors: Improves With: activity, coughing Associated Symptoms: cough, fever, No chest pain/discomfort Allergies/Adverse Reactions: Penicillins Allergy (Severe, Verified 02/06/22 22:39) Rash Home Medications: Fluoxetine HCl 20 mg [Prozac 20 MG] 1 ea DAILY 06/17/21 [History] Lurasidone HCl [Latuda] 1 ea DAILY 06/17/21 [History] Hx Tetanus, Diphtheria Vaccination/Date Given: Yes Hx Influenza Vaccination/Date Given: Yes Hx Pneumococcal Vaccination/Date Given: No Travel Risk - International Travel Have you traveled outside of the country in past 3 weeks: No - Coronavirus Screening Are you exhibiting any of the following symptoms?: Yes Symptoms: Fever, Cough: New Onset, Shortness of Breath, Headaches/Body Aches/Fatigue Close contact with a COVID-19 positive Pt in past 14-21 Days: No - Vaccine Status Have you recieved a Covid-19 vaccination: Yes 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 - Vaccination Dates Date of 2cond Vaccination (if applicable): unknown - Review of Systems Constitutional: Fever Eyes: No Symptoms Ears, Nose, & Throat: Throat Pain Respiratory: Cough, Dyspnea Cardiac: No Symptoms Abdominal/Gastrointestinal: No Symptoms Genitourinary Symptoms: No Symptoms Musculoskeletal: Arthralgias, Myalgias Skin: No Symptoms Neurological: No Symptoms Psychological: No Symptoms Endocrine: No Symptoms Hematologic/Lymphatic: No Symptoms Immunological/Allergic: No Symptoms All Other Systems: Reviewed and Negative - Past Medical History Pertinent Past Medical History: Yes Neurological History: No Pertinent History ENT History: No Pertinent History Cardiac History: No Pertinent History Respiratory History: No Pertinent History Endocrine Medical History: No Pertinent History Musculoskeletal History: No Pertinent History GI Medical History: Gallbladder Disease History: No Pertinent History Psycho-Social History: Depression Female Reproductive Disorders: Menstrual Problems, Other Other Medical History: ovarian cyst - Past Surgical History Past Surgical History: Yes Neuro Surgical History: No Pertinent History Cardiac: No Pertinent History Respiratory: No Pertinent History Gastrointestinal: Cholecystectomy Genitourinary: No Pertinent History Musculoskeletal: No Pertinent History Female Surgical History: Other Other Surgical History: tonsils, ovarian cyst - Social History Smoking Status: Never smoker Exposure to second hand smoke: Yes Drug Use: marijuana Patient Lives Alone: No Significant Family History: no pertinent family hx - Nursing Vital Signs Nursing Vital Signs: Initial Vital Signs Temperature 99.3 F 03/08/22 21:44 Pulse Rate 113 H 03/08/22 21:44 Respiratory Rate 19 03/08/22 21:44 Blood Pressure 116/80 03/08/22 21:44 O2 Sat by Pulse Oximetry 96 03/08/22 21:44 Pain Scale Pain Intensity 9 - Physical Exam General Appearance: no apparent distress, alert, anxiety Eye Exam: PERRL/EOMI, eyes nml inspection Ears, Nose, Throat Exam: hearing grossly normal, normal ENT inspection, normal pharynx Neck Exam: normal inspection, non-tender, supple, full range of motion Respiratory Exam: normal breath sounds, lungs clear, airway intact, No chest tenderness, No respiratory distress Cardiovascular/Chest Exam: normal heart sounds, tachycardia Abdominal/Gastrointestinal Exam: soft, normal bowel sounds, No tenderness Rectal Exam: not done Extremity Exam: non-tender, normal range of motion, normal inspection Neurologic Exam: alert, oriented x 3, cooperative, recruiting assistant II-XII nml as tested, normal mood/affect, nml cerebellar function, nml station & gait, sensation nml Skin Exam: normal color, warm, dry Lymphatic Exam: No adenopathy SpO2 Interpretation: normal O2 Delivery: Room Air - Course Nursing assessment & vital signs reviewed: Yes EKG Interpreted by Me: RATE (105), Sinus Tach (Mild), NORMAL AXIS, NORMAL INTERVALS, NORMAL QRS, NORMAL ST-T, Other (No acute ischemic changes on today's EKG.) Ordered Tests: Active Orders 24 hr Category Date Time Status IV Insertion STAT Care 03/08/22 22:51 Active Pulse Oximetry (ED) STAT Care 03/08/22 22:18 Active CHEST 1 VIEW (PORTABLE) Stat Exams 03/08/22 22:19 Completed BLOOD CULTURE Stat Lab 03/08/22 22:40 Received CBC W DIFF Stat Lab 03/08/22 22:35 Completed CMP Stat Lab 03/08/22 22:35 Completed HCG,QUALITATIVE URINE Stat Lab 03/08/22 23:32 Completed Lactic Acid Stat Lab 03/08/22 22:40 Completed Towns Screen Stat Lab 03/08/22 22:35 Completed UA W/RFX CULTURE Stat Lab 03/08/22 22:40 Completed Medication Summary Discontinued Medications Generic Name Dose Route Start Last Admin Trade Name Rohini PRN Reason Stop Dose Admin Sodium Chloride 500 mls @ 500 mls/hr 03/08/22 22:20 03/08/22 22:47 Sodium Chloride 0.9% 500 Ml IV 03/08/22 23:19 500 mls/hr .Q1H ONE Administration Sodium Chloride Confirm 03/08/22 22:25 Sodium Chloride 0.9% 1000 Ml Administered 03/08/22 22:26 Dose 1,000 mls @ ud .ROUTE .STK-MED ONE Sodium Chloride Confirm 03/08/22 22:46 Sodium Chloride 0.9% 500 Ml Administered 03/08/22 22:47 Dose 500 mls @ ud IV .STK-MED ONE Lab/Rad Data: Laboratory Result Diagrams 03/08/22 22:35 03/08/22 22:35 Laboratory Results 03/08/22 03/08/22 03/08/22 Range/Units 23:32 22:40 22:40 WBC (4.0-10.5) x10^3/uL RBC (4.1-5.4) x10^6/uL Hgb (12.0-16.0) g/dL Hct (35-47) % MCV (78-100) fL MCH (26-32) pg MCHC (32-36) g/dL RDW (11.5-14.0) % Plt Count (150-450) x10^3/uL MPV (7.5-11.0) fL Gran % (36.0-66.0) % Immature Gran % (Auto) (0.00-0.4) % Nucleat RBC Rel Count (0.00-0.1) % Eos # (Auto) (0-0.5) x10^3/uL Immature Gran # (Auto) (0.00-0.03) x10^3u/L Absolute Lymphs (auto) (1.0-4.6) x10^3/uL Absolute Monos (auto) (0.0-1.3) x10^3/uL Absolute Nucleated RBC (0.00-0.01) x10^3u/L Lymphocytes % (24.0-44.0) % Monocytes % (0.0-12.0) % Eosinophils % (0.00-5.0) % Basophils % (0.0-0.4) % Absolute Granulocytes (1.4-6.9) x10^3/uL Basophils # (0-0.4) x10^3/uL Sodium (137-145) mmol/L Potassium (3.5-5.1) mmol/L Chloride (98-107) mmol/L Carbon Dioxide (22-30) mmol/L Anion Gap (5-15) MEQ/L BUN (7-17) mg/dL Creatinine (0.52-1.04) mg/dL Estimated GFR ML/MIN Glucose (74-106) mg/dL Lactic Acid (0.4-2.0) Calcium (8.4-10.2) mg/dL Total Bilirubin (0.2-1.3) mg/dL AST (14-36) U/L ALT (0-35) U/L Alkaline Phosphatase (38-126) U/L Serum Total Protein (6.3-8.2) g/dL Albumin (3.5-5.0) g/dL Urinalys Dipstick Clnc MAIN LAB Urine Color YELLOW (YELLOW) Urine Appearance SLIGHTLY CLOUDY (CLEAR) Urine pH 8.5 (5-6) Ur Specific Hammond 1.020 (1.005-1.025) POC Urine Protein Conf NEGATIVE (Negative) Urine Ketones NEGATIVE (NEGATIVE) Urine Nitrite NEGATIVE (NEGATIVE) Urine Bilirubin NEGATIVE (NEGATIVE) Urine Urobilinogen 1 (0-1) mg/dL Urine Leukocytes NEGATIVE (NEGATIVE) Urine WBC (Auto) NONE (0-5) /HPF Urine RBC (Auto) >101 (0-2) /HPF U Epithel Cells (Auto) RARE (FEW) /HPF Urine Bacteria (Auto) NONE (NEGATIVE) /HPF Urine RBC LARGE (0-5) Kavon/ul Urine Mucus (Auto) SLIGHT (NEGATIVE) /HPF Ur Culture Indicated? NO Urine Glucose NEGATIVE (NEGATIVE) mg/dL Urine HCG, Qual NEGATIVE (Negative) Monoscreen (Negative) Influenza Type A Ag NEGATIVE (NEGATIVE) Influenza Type B Ag NEGATIVE (NEGATIVE) RSV (PCR) NEGATIVE (Negative) SARS-CoV-2 (PCR) NEGATIVE (NEGATIVE) Group A Strep Antibody (NEGATIVE) 03/08/22 03/08/22 03/08/22 Range/Units 22:40 22:40 22:35 WBC (4.0-10.5) x10^3/uL RBC (4.1-5.4) x10^6/uL Hgb (12.0-16.0) g/dL Hct (35-47) % MCV (78-100) fL MCH (26-32) pg MCHC (32-36) g/dL RDW (11.5-14.0) % Plt Count (150-450) x10^3/uL MPV (7.5-11.0) fL Gran % (36.0-66.0) % Immature Gran % (Auto) (0.00-0.4) % Nucleat RBC Rel Count (0.00-0.1) % Eos # (Auto) (0-0.5) x10^3/uL Immature Gran # (Auto) (0.00-0.03) x10^3u/L Absolute Lymphs (auto) (1.0-4.6) x10^3/uL Absolute Monos (auto) (0.0-1.3) x10^3/uL Absolute Nucleated RBC (0.00-0.01) x10^3u/L Lymphocytes % (24.0-44.0) % Monocytes % (0.0-12.0) % Eosinophils % (0.00-5.0) % Basophils % (0.0-0.4) % Absolute Granulocytes (1.4-6.9) x10^3/uL Basophils # (0-0.4) x10^3/uL Sodium (137-145) mmol/L Potassium (3.5-5.1) mmol/L Chloride (98-107) mmol/L Carbon Dioxide (22-30) mmol/L Anion Gap (5-15) MEQ/L BUN (7-17) mg/dL Creatinine (0.52-1.04) mg/dL Estimated GFR ML/MIN Glucose (74-106) mg/dL Lactic Acid 1.6 (0.4-2.0) Calcium (8.4-10.2) mg/dL Total Bilirubin (0.2-1.3) mg/dL AST (14-36) U/L ALT (0-35) U/L Alkaline Phosphatase (38-126) U/L Serum Total Protein (6.3-8.2) g/dL Albumin (3.5-5.0) g/dL Urinalys Dipstick Clnc Urine Color (YELLOW) Urine Appearance (CLEAR) Urine pH (5-6) Ur Specific Hammond (1.005-1.025) POC Urine Protein Conf (Negative) Urine Ketones (NEGATIVE) Urine Nitrite (NEGATIVE) Urine Bilirubin (NEGATIVE) Urine Urobilinogen (0-1) mg/dL Urine Leukocytes (NEGATIVE) Urine WBC (Auto) (0-5) /HPF Urine RBC (Auto) (0-2) /HPF U Epithel Cells (Auto) (FEW) /HPF Urine Bacteria (Auto) (NEGATIVE) /HPF Urine RBC (0-5) Kavon/ul Urine Mucus (Auto) (NEGATIVE) /HPF Ur Culture Indicated? Urine Glucose (NEGATIVE) mg/dL Urine HCG, Qual (Negative) Monoscreen NEGATIVE (Negative) Influenza Type A Ag (NEGATIVE) Influenza Type B Ag (NEGATIVE) RSV (PCR) (Negative) SARS-CoV-2 (PCR) (NEGATIVE) Group A Strep Antibody NOT DETECTED (NEGATIVE) 03/08/22 03/08/22 Range/Units 22:35 22:35 WBC 6.7 (4.0-10.5) x10^3/uL RBC 4.64 (4.1-5.4) x10^6/uL Hgb 12.6 (12.0-16.0) g/dL Hct 40.5 (35-47) % MCV 87.3 (78-100) fL MCH 27.2 (26-32) pg MCHC 31.1 L (32-36) g/dL RDW 15.6 H (11.5-14.0) % Plt Count 210 (150-450) x10^3/uL MPV 11.2 H (7.5-11.0) fL Gran % 67.1 H (36.0-66.0) % Immature Gran % (Auto) 0.4 (0.00-0.4) % Nucleat RBC Rel Count 0.0 (0.00-0.1) % Eos # (Auto) 0.04 (0-0.5) x10^3/uL Immature Gran # (Auto) 0.03 (0.00-0.03) x10^3u/L Absolute Lymphs (auto) 1.73 (1.0-4.6) x10^3/uL Absolute Monos (auto) 0.39 (0.0-1.3) x10^3/uL Absolute Nucleated RBC 0.00 (0.00-0.01) x10^3u/L Lymphocytes % 25.7 (24.0-44.0) % Monocytes % 5.8 (0.0-12.0) % Eosinophils % 0.6 (0.00-5.0) % Basophils % 0.4 (0.0-0.4) % Absolute Granulocytes 4.51 (1.4-6.9) x10^3/uL Basophils # 0.03 (0-0.4) x10^3/uL Sodium 139 (137-145) mmol/L Potassium 3.5 (3.5-5.1) mmol/L Chloride 103 (98-107) mmol/L Carbon Dioxide 27 (22-30) mmol/L Anion Gap 12.3 (5-15) MEQ/L BUN 8 (7-17) mg/dL Creatinine 0.66 (0.52-1.04) mg/dL Estimated GFR > 60.0 ML/MIN Glucose 111 H (74-106) mg/dL Lactic Acid (0.4-2.0) Calcium 9.7 (8.4-10.2) mg/dL Total Bilirubin 0.60 (0.2-1.3) mg/dL AST 66 H (14-36) U/L ALT 56 H (0-35) U/L Alkaline Phosphatase 105 (38-126) U/L Serum Total Protein 7.7 (6.3-8.2) g/dL Albumin 4.3 (3.5-5.0) g/dL Urinalys Dipstick Clnc Urine Color (YELLOW) Urine Appearance (CLEAR) Urine pH (5-6) Ur Specific Hammond (1.005-1.025) POC Urine Protein Conf (Negative) Urine Ketones (NEGATIVE) Urine Nitrite (NEGATIVE) Urine Bilirubin (NEGATIVE) Urine Urobilinogen (0-1) mg/dL Urine Leukocytes (NEGATIVE) Urine WBC (Auto) (0-5) /HPF Urine RBC (Auto) (0-2) /HPF U Epithel Cells (Auto) (FEW) /HPF Urine Bacteria (Auto) (NEGATIVE) /HPF Urine RBC (0-5) Kavon/ul Urine Mucus (Auto) (NEGATIVE) /HPF Ur Culture Indicated? Urine Glucose (NEGATIVE) mg/dL Urine HCG, Qual (Negative) Monoscreen (Negative) Influenza Type A Ag (NEGATIVE) Influenza Type B Ag (NEGATIVE) RSV (PCR) (Negative) SARS-CoV-2 (PCR) (NEGATIVE) Group A Strep Antibody (NEGATIVE) - Progress Progress: improved, re-examined Air Movement: good Progress Note: 03/08/22 23:15 Chest x-ray shows no acute cardiopulmonary process. Counseled pt/family regarding: lab results, diagnosis, need for follow-up, rad results - Departure Departure Disposition: Home Clinical Impression: Influenza vaccine side effect Condition: Stable Critical Care Time: No Referrals: MARCUS ANDERSON NP [Primary Care Provider] - Follow up/PCP as directed Additional Instructions: Drink plenty of fluids. Follow-up with your primary care provider for further management. May use Tylenol and ibuprofen, if not allergic, for pain and fever control.
[2022-03-08] MEDS ORDERED: Sodium Chloride 0.9% 500 ML 500 ML IV ONE ×2 (22:20→22:46)
[2022-03-08] MEDS ORDERED: Sodium Chloride 0.9% 1000 ML 1,000 ML ONE (22:25)
[2022-03-08 22:44] LABS: Absolute Neutrophil Ct (ANC) 4.51 x10^3/uL (1.4-6.9); Basophil (Absolute #) 0.03 x10^3/uL (0-0.4); Eosinophil % 0.6 % (0.00-5.0); Eosinophil (Absolute #) 0.04 x10^3/uL (0-0.5); Hematocrit 40.5 % (35-47); Hemoglobin 12.6 g/dL (12.0-16.0); Lymphocyte (Absolute #) 1.73 x10^3/uL (1.0-4.6); Lymphocytes % 25.7 % (24.0-44.0); Mean Cell Volume 87.3 fL (78-100); Mean Corpuscular Hemoglobin 27.2 pg (26-32); Mean Corpuscular Hgb Concent. 31.1 g/dL (32-36); Mean Platelet Volume 11.2 fL (7.5-11.0); Monocyte (Absolute #) 0.39 x10^3/uL (0.0-1.3); Monocytes % 5.8 % (0.0-12.0); Neutrophil % 67.1 % (36.0-66.0); Platelet Count 210 x10^3/uL (150-450); Red Blood Count 4.64 x10^6/uL (4.1-5.4); Red Cell Distribution Width 15.6 % (11.5-14.0); White Blood Count 6.7 x10^3/uL (4.0-10.5)
--- NOTE | 2022-03-08 22:52 | XRAY ---
Indication: Cough, short of breath, and sore throat. Comparison: May 04, 2019. Portable chest remains slightly underinflated and clear. Heart not enlarged. Bony thorax intact. No new/acute findings.
[2022-03-08 23:00] LABS: Appearance SLIGHTLY CLOUDY (CLEAR)
[2022-03-08 23:01] LABS: Bilirubin NEGATIVE (NEGATIVE); Dipstick done @ ? MAIN LAB; Glucose NEGATIVE (NEGATIVE); Ketones NEGATIVE (NEGATIVE); Nitrite NEGATIVE (NEGATIVE); Ph 8.5 (5-6); Protein,Urine Dip NEGATIVE (Negative); RBC LARGE Ery/ul (0-5); Urobilinogen 1 mg/dL (0-1)
[2022-03-08 23:04] LABS: ALBUMIN 4.3 g/dL (3.5-5.0); ALKALINE PHOSPHATASE 105 U/L (38-126); ANION GAP 12.3 MEQ/L (5-15); BLOOD UREA NITROGEN 8 mg/dL (7-17); CHLORIDE 103 mmol/L (98-107); Calcium 9.7 mg/dL (8.4-10.2); Carbon Dioxide 27 mmol/L (22-30); Creatinine 1 0.66 mg/dL (0.52-1.04); EST GLOMERULAR FILTRATION RATE > 60.0 ML/MIN; Glucose 111 mg/dL (74-106); Potassium 3.5 mmol/L (3.5-5.1); SGOT/AST 66 U/L (14-36); SGPT/ALT 56 U/L (0-35); SODIUM 139 mmol/L (137-145); Total Protein 7.7 g/dL (6.3-8.2)
[2022-03-08 23:08] LABS: Epithelial Cells RARE /HPF (FEW); Mucus SLIGHT /HPF (NEGATIVE)
[2022-03-08 23:11] LABS: RBC >101 /HPF (0-2); Urine Cultured Indicated? NO
[2022-03-08 23:26] LABS: INFLUENZA A NEGATIVE (NEGATIVE); INFLUENZA B NEGATIVE (NEGATIVE); RESPIRATORY SYNCTIAL VIRUS NEGATIVE (Negative); SARS-CoV-2 Xpert Express NEGATIVE (NEGATIVE)
[2022-03-09 00:08] VITALS: BP 107/63; PULSE 95; O2SAT 93
== END 2022-03-09 01:00 | disposition home or self-care (01) ==
LOC: ED 21:43
DX: T88.1XXA Other complications following immunization, not elsewhere classified, initial encounter (principal); R05.1 Acute cough; R06.02 Shortness of breath; J02.9 Acute pharyngitis, unspecified; M79.10 Myalgia, unspecified site
CPT/HCPCS: 0241U; 36000; 36415; 71045; 80053; 81015; 81025; 83605; 85025; 86308; 87040; 87651; 94760; 99284

== ENCOUNTER 2022-04-25 18:21 | Emergency (ER) | payer MEDICAID ==
--- NOTE | 2022-04-25 18:59 | ERPHSYRPT ---
- History of Present Illness Time Seen by Provider: 04/25/22 18:45 Source: patient Exam Limitations: no limitations Patient Subjective Stated Complaint: C/O lower back pain that started last night. Describes the pain as "sharp and burning" Triage Nursing Assessment: Patient alert and oriented with a flat affect. No skin alterations noted to lower back. Patient is able to NEELY WNL. She is ambulating without difficulties. Physician History: Patient 21 year-old female presents emergency department for evaluation of low back pain. Back pain started last night. Back pain has been constant throughout the day. No trauma. No fever. No nausea vomiting or diaphoresis. It was observed that patient's urine is cloudy. Patient has a history of UTI. Patient has no obvious urinary tract symptomology. No frequency or urgency. No abdominal pain. No vaginal discharge. Symptoms are mild to moderate in intensity. No specific worsening improving factors. Patient voices no other complaints or concerns at this time. Portions of this note were created with voice recognition technology. There may be grammatical, spelling, punctuation or sound alike errors Timing/Duration: yesterday Severity: moderate Modifying Factors: Improves With: nothing Associated Symptoms: denies symptoms Allergies/Adverse Reactions: Penicillins Allergy (Severe, Verified 04/25/22 18:47) Rash Home Medications: Fluoxetine HCl 20 mg [Prozac 20 MG] 1 ea DAILY 06/17/21 [History] Hx Tetanus, Diphtheria Vaccination/Date Given: Yes Hx Influenza Vaccination/Date Given: Yes Hx Pneumococcal Vaccination/Date Given: No Immunizations Up to Date: Yes Travel Risk - International Travel Have you traveled outside of the country in past 3 weeks: No - Coronavirus Screening Are you exhibiting any of the following symptoms?: No Close contact with a COVID-19 positive Pt in past 14-21 Days: No - Vaccine Status Have you recieved a Covid-19 vaccination: Yes Heel Gouger: Unknown - Vaccination Dates Dates if Unknown: unsure - Review of Systems Constitutional: No Symptoms, No Fever, No Chills Eyes: No Symptoms Ears, Nose, & Throat: No Symptoms Respiratory: No Symptoms, No Cough, No Dyspnea Cardiac: No Symptoms, No Chest Pain, No Edema, No Syncope Abdominal/Gastrointestinal: No Symptoms, No Abdominal Pain, No Nausea, No Vomiting, No Diarrhea Genitourinary Symptoms: No Symptoms, No Dysuria Musculoskeletal: No Symptoms, No Back Pain, No Neck Pain Skin: No Symptoms, No Rash Neurological: No Symptoms, No Dizziness, No Focal Weakness, No Sensory Changes Psychological: No Symptoms Endocrine: No Symptoms Hematologic/Lymphatic: No Symptoms Immunological/Allergic: No Symptoms All Other Systems: Reviewed and Negative - Past Medical History Pertinent Past Medical History: Yes Neurological History: No Pertinent History ENT History: No Pertinent History Cardiac History: No Pertinent History Respiratory History: No Pertinent History Endocrine Medical History: No Pertinent History Musculoskeletal History: No Pertinent History GI Medical History: Gallbladder Disease History: No Pertinent History Psycho-Social History: Anxiety, Bipolar, Depression, Other Female Reproductive Disorders: Menstrual Problems, Other Other Medical History: ovarian cyst, MR, personality disorder - Past Surgical History Past Surgical History: Yes Neuro Surgical History: No Pertinent History Cardiac: No Pertinent History Respiratory: No Pertinent History Gastrointestinal: Cholecystectomy Genitourinary: No Pertinent History Musculoskeletal: No Pertinent History Female Surgical History: Other Other Surgical History: ovarian cyst removed surgically - Social History Smoking Status: Never smoker Exposure to second hand smoke: Yes Drug Use: none Patient Lives Alone: No Significant Family History: no pertinent family hx - Female History Hx Last Menstrual Period: Couple months ago Hx Now: No - Nursing Vital Signs Nursing Vital Signs: Initial Vital Signs Temperature 97.5 F 04/25/22 18:32 Pulse Rate 108 H 04/25/22 18:32 Respiratory Rate 16 04/25/22 18:32 Blood Pressure 112/82 04/25/22 18:32 O2 Sat by Pulse Oximetry 97 04/25/22 18:32 Pain Scale Pain Intensity 10 - Physical Exam General Appearance: no apparent distress, alert Eye Exam: PERRL/EOMI, eyes nml inspection Ears, Nose, Throat Exam: normal ENT inspection, TMs normal, pharynx normal, moist mucous membranes Neck Exam: normal inspection, non-tender, supple, full range of motion Respiratory Exam: normal breath sounds, lungs clear, No respiratory distress Cardiovascular Exam: regular rate/rhythm, normal heart sounds, normal peripheral pulses Gastrointestinal/Abdomen Exam: soft, normal bowel sounds, No tenderness, No mass Back Exam: normal inspection, normal range of motion, No CVA tenderness, No vertebral tenderness Extremity Exam: normal inspection, normal range of motion, pelvis stable Neurologic Exam: alert, oriented x 3, cooperative, normal mood/affect, nml cerebellar function, nml station & gait, sensation nml, No motor deficits Skin Exam: normal color, warm, dry, No rash Lymphatic Exam: No adenopathy SpO2 Interpretation: normal SpO2: 97 O2 Delivery: Room Air - Course Nursing assessment & vital signs reviewed: Yes - CT Exams Abdomen/Pelvis CT Interpretation: Tele-radiologist Report (Compared to 01/31/2021 appendix not seen. Again fatty liver. Remaining abdomen pelvis negative.) Ordered Tests: Active Orders 24 hr Category Date Time Status ABDOMEN AND PELVIS W/0 CONTRAS [CT] Stat Exams 04/25/22 19:07 Taken CULTURE,URINE Stat Lab 04/25/22 18:30 Received HCG,QUALITATIVE URINE Stat Lab 04/25/22 18:41 Completed UA W/RFX CULTURE Stat Lab 04/25/22 18:30 Completed Medication Summary Generic Name Dose Route Start Last Admin Trade Name Freq PRN Reason Stop Dose Admin Levofloxacin/Dextrose 500 mg in 100 mls @ 100 mls/hr 04/26/22 10:00 Levofloxacin 500mg/100ml D5w IV 05/26/22 09:59 [id number] [facility] Lab/Rad Data: Laboratory Results 04/25/22 04/25/22 Range/Units 18:41 18:30 Urinalys Dipstick Clnc MAIN LAB Urine Color YELLOW (YELLOW) Urine Appearance CLOUDY (CLEAR) Urine pH 5.5 (5-6) Ur Specific [place] >=1.030 (1.005-1.025) POC Urine Protein Conf TRACE (Negative) Urine Ketones NEGATIVE (NEGATIVE) Urine Nitrite POSITIVE (NEGATIVE) Urine Bilirubin NEGATIVE (NEGATIVE) Urine Urobilinogen 0.2 (0-1) mg/dL Urine Leukocytes SMALL (NEGATIVE) Urine WBC (Auto) 51-100 (0-5) /HPF Urine RBC (Auto) 3-5 (0-2) /HPF U Epithel Cells (Auto) FEW (FEW) /HPF Urine Bacteria (Auto) PACKED (NEGATIVE) /HPF Urine RBC TRACE-INTACT (0-5) [place]avon/ul Urine Mucus (Auto) MANY (NEGATIVE) /HPF Ur Culture Indicated? YES Urine Glucose NEGATIVE (NEGATIVE) mg/dL Urine HCG, Qual NEGATIVE (Negative) - Progress Progress: improved Progress Note: Patient reassessed. She feels well. Pain significantly improved. CT scan shows fatty liver otherwise negative. No fat stranding around kidneys. However patient does have CVA tenderness. Positive urinary tract infection on urinalysis. Concerning for possible early pyelonephritis. Patient afebrile. Patient received a dose of ciprofloxacin IV in our ED. A prescription for ciprofloxacin will be forwarded to patient's pharmacy. Plan of care discussed with patient. She agrees to follow-up with her primary care doctor within 48 hours for evaluation. Portions of this note were created with voice recognition technology. There may be grammatical, spelling, punctuation or sound alike errors 04/25/22 20:02 Counseled pt/family regarding: lab results, diagnosis, need for follow-up, rad results - Departure Departure Disposition: Home Clinical Impression: Fatty liver, UTI (urinary tract infection) Condition: Stable Critical Care Time: No Referrals: MARCUS ANDERSON NP [Primary Care Provider] - Follow up/PCP as directed Prescriptions: Ciprofloxacin [Cipro 500 MG] 500 mg PO BID #14 tablet
[2022-04-25 19:15] LABS: Appearance CLOUDY (CLEAR); Bacteria PACKED /HPF (NEGATIVE); Bilirubin NEGATIVE (NEGATIVE); Epithelial Cells FEW /HPF (FEW); Glucose NEGATIVE (NEGATIVE); Ketones NEGATIVE (NEGATIVE); Mucus MANY /HPF (NEGATIVE); Ph 5.5 (5-6); Protein,Urine Dip TRACE (Negative); RBC TRACE-INTACT Ery/ul (0-5); Specific Gravity >=1.030 (1.005-1.025); Urobilinogen 0.2 mg/dL (0-1); WBC 51-100 /HPF (0-5)
[2022-04-25 19:16] LABS: Dipstick done @ ? MAIN LAB; Nitrite POSITIVE (NEGATIVE); Urine Cultured Indicated? YES
[2022-04-25 19:58] VITALS: O2SAT 97
[2022-04-25] MEDS ORDERED: Levofloxacin 500MG/100ML D5W 500 MG/100 ML BAG IV ONE (20:01)
[2022-04-25 20:10] VITALS: BP 111/75
[2022-04-25 21:01] VITALS: PULSE 99
--- NOTE | 2022-04-26 08:12 | XRAY ---
Indication: Bilateral flank pain. Multiple contiguous axial images obtained through the abdomen and pelvis without contrast. Comparison: January 31, 2021 Lung bases demonstrates new small focus right costophrenic angle fibrosis/scarring. No infiltrate or effusion. Heart not enlarged. Noncontrasted stomach and bowel loops appear nonobstructed. Appendix not visualized. Liver again demonstrates diffuse fatty attenuation with central fatty sparing. Again previous cholecystectomy. Left ovary demonstrates a few cysts, largest 1.7 cm. No free fluid/air. Remaining liver, pancreas, spleen, adrenal glands, kidneys, ureters, bladder, and aorta are unremarkable for noncontrast exam. Osseous structures intact. No ventral or inguinal hernias. Impression: 1. Again fatty liver. 2. Remaining CT abdomen/pelvis without contrast exam is negative.
[2022-04-26] MEDS ORDERED: Levofloxacin 500MG/100ML D5W 500 MG/100 ML BAG IV SCH (10:00)
== END 2022-04-25 21:03 | disposition home or self-care (01) ==
LOC: ED 18:21
DX: N39.0 Urinary tract infection, site not specified (principal); K76.0 Fatty (change of) liver, not elsewhere classified; M54.50 Low back pain, unspecified
CPT/HCPCS: 74176; 81015; 81025; 87077; 87086; 87186; 96365; 99283; J1956

== ENCOUNTER 2022-05-11 03:15 | Emergency (ER) | payer MEDICAID ==
[2022-05-11] MEDS ORDERED: MOTRIN 600 MG PO ONE (03:37)
[2022-05-11] MEDS ORDERED: MOTRIN 600 MG ONE (03:39)
[2022-05-11 04:30] LABS: Group A Strep NOT DETECTED (NEGATIVE)
[2022-05-11 04:40] LABS: INFLUENZA A NEGATIVE (NEGATIVE); INFLUENZA B NEGATIVE (NEGATIVE); RESPIRATORY SYNCTIAL VIRUS NEGATIVE (Negative)
[2022-05-11 04:43] LABS: SARS-CoV-2 Xpert Express POSITIVE (NEGATIVE)
--- NOTE | 2022-05-11 04:55 | ERPHSYRPT ---
- History of Present Illness Time Seen by Provider: 05/11/22 03:45 Source: patient Exam Limitations: no limitations Patient Subjective Stated Complaint: pt states she began coughing around 0200 tonight and doesnt feel well. Triage Nursing Assessment: pt alert and oriented, answers questions approp. pt ambultory with steadyg ait noted. respirations nonlabored with lungs cta. pt states pain when she coughs and takes deep breath. skin pink warm and dry Physician History: This is a 21-year-old white female patient of nurse practitioner Lamonte who noticed cough nasal congestion and body aches that began suddenly at 2 AM this morning. Symptoms were getting worse. She also complains of chest pain with cough only. She has not been exposed, knowingly, to any individual with similar symptoms or with COVID-19 infection. She has had no nausea vomiting or diarrhea. She denies significant shortness of breath. She denies abdominal pain. Patient was brought to the hospital by a family member. Cough Quality/Degree: mild, dry cough Possible Cause: no prior episodes Associated Symptoms: chest pain/soreness, cough, muscle aches, sore throat Allergies/Adverse Reactions: Penicillins Allergy (Severe, Verified 05/11/22 03:32) Rash Home Medications: Fluoxetine HCl 20 mg [Prozac 20 MG] 1 ea DAILY 06/17/21 [History] Hx Tetanus, Diphtheria Vaccination/Date Given: Yes Hx Influenza Vaccination/Date Given: No Hx Pneumococcal Vaccination/Date Given: No Immunizations Up to Date: Yes Travel Risk - International Travel Have you traveled outside of the country in past 3 weeks: No - Coronavirus Screening Are you exhibiting any of the following symptoms?: Yes Symptoms: Cough: New Onset, Headaches/Body Aches/Fatigue Close contact with a COVID-19 positive Pt in past 14-21 Days: No - Vaccine Status Have you recieved a Covid-19 vaccination: Yes [place] Hand: Unknown - Vaccination Dates Dates if Unknown: unsure - Review of Systems Constitutional: No Symptoms Eyes: No Symptoms Ears, Nose, & Throat: Nose Congestion Respiratory: Cough Cardiac: Chest Pain (Only with coughing) Abdominal/Gastrointestinal: No Symptoms Genitourinary Symptoms: No Symptoms Musculoskeletal: Arthralgias, Myalgias Skin: No Symptoms Neurological: No Symptoms Psychological: No Symptoms Endocrine: No Symptoms Hematologic/Lymphatic: No Symptoms Immunological/Allergic: No Symptoms All Other Systems: Reviewed and Negative - Past Medical History Pertinent Past Medical History: Yes Neurological History: No Pertinent History ENT History: No Pertinent History Cardiac History: No Pertinent History Respiratory History: No Pertinent History Endocrine Medical History: No Pertinent History Musculoskeletal History: No Pertinent History GI Medical History: Gallbladder Disease History: No Pertinent History Psycho-Social History: Anxiety, Bipolar, Depression, Other Female Reproductive Disorders: Menstrual Problems, Other Other Medical History: ovarian cyst, MR, personality disorder - Past Surgical History Past Surgical History: Yes Neuro Surgical History: No Pertinent History Cardiac: No Pertinent History Respiratory: No Pertinent History Gastrointestinal: Cholecystectomy Genitourinary: No Pertinent History Musculoskeletal: No Pertinent History Female Surgical History: Other Other Surgical History: ovarian cyst removed surgically - Social History Smoking Status: Never smoker Exposure to second hand smoke: Yes Drug Use: none Patient Lives Alone: No Significant Family History: no pertinent family hx - Female History Hx Last Menstrual Period: current Hx Now: No - Nursing Vital Signs Nursing Vital Signs: Initial Vital Signs Temperature 98.0 F 05/11/22 03:23 Pulse Rate 74 05/11/22 03:23 Respiratory Rate 16 05/11/22 03:23 Blood Pressure 112/73 05/11/22 03:23 O2 Sat by Pulse Oximetry 100 05/11/22 03:23 Pain Scale Pain Intensity 6 - Physical Exam General Appearance: no apparent distress, alert, obese Eye Exam: PERRL/EOMI, eyes nml inspection Ears, Nose, Throat Exam: normal ENT inspection, moist mucous membranes Neck Exam: normal inspection, non-tender, supple, full range of motion Respiratory Exam: normal breath sounds, chest tenderness (Only with coughing), lungs clear, airway intact, No respiratory distress Cardiovascular Exam: regular rate/rhythm, normal heart sounds, normal peripheral pulses Gastrointestinal/Abdomen Exam: soft, normal bowel sounds, No tenderness Pelvic Exam: not done Rectal Exam: not done Back Exam: normal inspection, normal range of motion, No CVA tenderness, No vertebral tenderness Extremity Exam: normal inspection, normal range of motion, pelvis stable Neurologic Exam: alert, oriented x 3, cooperative, population geneticist II-XII nml as tested, normal mood/affect, nml cerebellar function, nml station & gait, sensation nml Skin Exam: normal color, warm, dry Lymphatic Exam: No adenopathy SpO2 Interpretation: normal SpO2: 96 O2 Delivery: Room Air - Course Nursing assessment & vital signs reviewed: Yes EKG Interpreted by Me: RATE (66), Sinus Rhythm, NORMAL AXIS, NORMAL INTERVALS, NORMAL QRS, NORMAL ST-T, Other (No acute ischemic changes on today's EKG.) Ordered Tests: Medication Summary Discontinued Medications Generic Name Dose Route Start Last Admin Trade Name Rohini PRN Reason Stop Dose Admin Ibuprofen 600 mg 05/11/22 03:37 05/11/22 03:40 Ibuprofen 600 Mg Tablet PO 05/11/22 03:38 600 mg STAT ONE Administration Ibuprofen Confirm 05/11/22 03:39 Ibuprofen 600 Mg Tablet Administered 05/11/22 03:40 Dose 600 mg .ROUTE .STWRG [employer] Lab/Rad Data: Laboratory Results 05/11/22 Range/Units 04:07 Influenza Type A Ag NEGATIVE (NEGATIVE) Influenza Type B Ag NEGATIVE (NEGATIVE) RSV (PCR) NEGATIVE (Negative) SARS-CoV-2 (PCR) POSITIVE A (NEGATIVE) Group A Strep Antibody NOT DETECTED (NEGATIVE) - Progress Progress: unchanged Air Movement: good Blood Culture(s) Obtained: No Antibiotics given: No Counseled pt/family regarding: lab results, diagnosis, need for follow-up - Departure Departure Disposition: Home Clinical Impression: COVID-19 virus infection Condition: Stable Critical Care Time: No Referrals: MARCUS ANDERSON NP [Primary Care Provider] - Follow up/PCP as directed Additional Instructions: Drink plenty of fluids. Take your medication as prescribed. Quarantine yourself for the next 7 days. If you are employed, notify your employer and return to work per their protocol. May use Tylenol and ibuprofen for pain and fever control. Prescriptions: Hydrocodone/Acetaminophen [Hydrocodone-Acetamn 7.5-325/15] 10 ml PO Q8H PRN PRN #120 ml MDD 30 ml PRN Reason: Cough Prednisone 10 mg [Deltasone 10 mg] 10 mg PO TID #12 tablet
[2022-05-11] MEDS ORDERED: HYDROCODONE-ACETAMIN 2.5-108/5 ML SOLUTION PO STA (04:58)
[2022-05-11 05:03] VITALS: BP 108/73; PULSE 74; O2SAT 98
[2022-05-11] MEDS ORDERED: HYDROCODONE-ACETAMIN 2.5-108/5 ML SOLUTION ONE (05:03)
== END 2022-05-11 05:11 | disposition home or self-care (01) ==
LOC: ED 03:15
DX: U07.1 COVID-19 (principal); R05.1 Acute cough; R09.81 Nasal congestion; M79.10 Myalgia, unspecified site; Z79.891 Long term (current) use of opiate analgesic; Z79.52 Long term (current) use of systemic steroids
CPT/HCPCS: 0241U; 87651; 93005; 99283; A9270-GY

== ENCOUNTER 2022-05-23 12:20 | Emergency (ER) | payer MEDICAID ==
[2022-05-23 12:26] VITALS: O2SAT 96
[2022-05-23 13:26] LABS: Absolute Neutrophil Ct (ANC) 5.67 x10^3/uL (1.4-6.9); Basophil (Absolute #) 0.05 x10^3/uL (0-0.4); Eosinophil % 1.6 % (0.00-5.0); Eosinophil (Absolute #) 0.15 x10^3/uL (0-0.5); Hematocrit 39.7 % (35-47); Hemoglobin 12.4 g/dL (12.0-16.0); Lymphocyte (Absolute #) 2.95 x10^3/uL (1.0-4.6); Lymphocytes % 31.9 % (24.0-44.0); Mean Cell Volume 88.6 fL (78-100); Mean Corpuscular Hemoglobin 27.7 pg (26-32); Mean Corpuscular Hgb Concent. 31.2 g/dL (32-36); Mean Platelet Volume 11.9 fL (7.5-11.0); Monocyte (Absolute #) 0.38 x10^3/uL (0.0-1.3); Monocytes % 4.1 % (0.0-12.0); Neutrophil % 61.3 % (36.0-66.0); Platelet Count 250 x10^3/uL (150-450); Red Blood Count 4.48 x10^6/uL (4.1-5.4); Red Cell Distribution Width 15.2 % (11.5-14.0); White Blood Count 9.3 x10^3/uL (4.0-10.5)
[2022-05-23 13:31] LABS: ALKALINE PHOSPHATASE 124 U/L (38-126); ANION GAP 13.4 MEQ/L (5-15); Appearance CLEAR (CLEAR); BLOOD UREA NITROGEN 12 mg/dL (7-17); Bilirubin NEGATIVE (NEGATIVE); CHLORIDE 105 mmol/L (98-107); Calcium 9.6 mg/dL (8.4-10.2); Carbon Dioxide 29 mmol/L (22-30); Creatinine 1 0.56 mg/dL (0.52-1.04); Dipstick done @ ? MAIN LAB; EST GLOMERULAR FILTRATION RATE > 60.0 ML/MIN; Glucose 100 mg/dL (NEGATIVE); Glucose 225 mg/dL (74-106); Ketones NEGATIVE (NEGATIVE); Nitrite NEGATIVE (NEGATIVE); Potassium 4.9 mmol/L (3.5-5.1); Protein,Urine Dip NEGATIVE (Negative); RBC NEGATIVE Ery/ul (0-5); SGOT/AST 55 U/L (14-36); SGPT/ALT 62 U/L (0-35); SODIUM 142 mmol/L (137-145); Specific Gravity >=1.030 (1.005-1.025); Total Protein 6.8 g/dL (6.3-8.2); Urobilinogen 0.2 mg/dL (0-1)
[2022-05-23 13:34] LABS: Bacteria RARE /HPF (NEGATIVE); Epithelial Cells FEW /HPF (FEW); Mucus SLIGHT /HPF (NEGATIVE); WBC 0-2 /HPF (0-5)
[2022-05-23 13:36] LABS: Urine Cultured Indicated? NO
[2022-05-23] MEDS ORDERED: TORAdol 30 mg Injection IM ONE (14:23)
[2022-05-23] MEDS ORDERED: TORAdol 30 mg Injection ONE (14:24)
--- NOTE | 2022-05-23 14:56 | XRAY ---
Indication: Chest pain and short of breath. Comparison: March 08, 2022 Portable chest again demonstrates normal heart, lungs, and bony thorax.
--- NOTE | 2022-05-23 14:59 | ERPHSYRPT ---
- History of Present Illness Time Seen by Provider: 05/23/22 12:28 Historian: patient Exam Limitations: no limitations Patient Subjective Stated Complaint: PT states "I have rib pain and pain just under my ribs." Triage Nursing Assessment: PT presented alert and oriented X 3, ski pwd Pt resting comfortably on the bed, texting. PT chewing gum and sitting in no noticable distress. Physician History: 21 years old female with a history of anxiety, depression, insomnia presented in the ER with chief complaint of bilateral lower chest pain started yesterday with no associated palpitations or shortness of breath. Pain is reproducible with deep breathing and movements, rates 6-04/2010 intensity. No fever or chills rep orted. Timing/Duration: yesterday, constant, gradual onset, worse Activities at Onset: rest Quality: sharpness Chest Pain Radiation: no radiation Severity of Pain-Max: moderate Severity of Pain-Current: moderate Modifying Factors: Worsens With: breathing, coughing, movement Associated Symptoms: fatigue, No palpitations, No shortness of breath Prior Chest Pain/Cardiac Workup: no prior chest pain, no prior cardiac workup Nitro Today/Relief: no nitro taken today Aspirin Treatment Today: no aspirin today Allergies/Adverse Reactions: Penicillins Allergy (Severe, Verified 05/11/22 03:32) Rash Home Medications: Fluoxetine HCl 20 mg [Prozac 20 MG] 1 ea DAILY 06/17/21 [History] Buspirone HCl 5 mg [Buspar 5 mg] 5 mg PO DAILY 05/23/22 [History] Escitalopram Oxalate 10 mg PO DAILY 05/23/22 [History] Prazosin HCl [Minipress] 1 mg PO DAILY 05/23/22 [History] Hx Tetanus, Diphtheria Vaccination/Date Given: Yes Hx Influenza Vaccination/Date Given: No Hx Pneumococcal Vaccination/Date Given: No Immunizations Up to Date: Yes Travel Risk - International Travel Have you traveled outside of the country in past 3 weeks: No - Coronavirus Screening Are you exhibiting any of the following symptoms?: No Close contact with a COVID-19 positive Pt in past 14-21 Days: No - Vaccine Status Have you recieved a Covid-19 vaccination: Yes Gill [employer] Stringer: Unknown - Vaccination Dates Dates if Unknown: unsure - Review of Systems Constitutional: No Symptoms Eyes: No Symptoms Ears, Nose, & Throat: No Symptoms Respiratory: No Symptoms Cardiac: Chest Pain Abdominal/Gastrointestinal: No Symptoms Genitourinary Symptoms: No Symptoms Musculoskeletal: No Symptoms Skin: No Symptoms Neurological: No Symptoms Psychological: Anxiety Endocrine: No Symptoms Hematologic/Lymphatic: No Symptoms Immunological/Allergic: No Symptoms - Past Medical History Pertinent Past Medical History: Yes Neurological History: No Pertinent History ENT History: No Pertinent History Cardiac History: No Pertinent History Respiratory History: No Pertinent History Endocrine Medical History: No Pertinent History Musculoskeletal History: No Pertinent History GI Medical History: Gallbladder Disease History: No Pertinent History Psycho-Social History: Anxiety, Bipolar, Depression, Other Female Reproductive Disorders: Menstrual Problems, Other Other Medical History: ovarian cyst, MR, personality disorder - Past Surgical History Past Surgical History: Yes Neuro Surgical History: No Pertinent History Cardiac: No Pertinent History Respiratory: No Pertinent History Gastrointestinal: Cholecystectomy Genitourinary: No Pertinent History Musculoskeletal: No Pertinent History Female Surgical History: Other Other Surgical History: ovarian cyst removed surgically - Social History Smoking Status: Never smoker Exposure to second hand smoke: Yes Drug Use: none Patient Lives Alone: No Significant Family History: no pertinent family hx - Female History Hx Last Menstrual Period: 04/07/2022 Hx Now: (unknown) - Nursing Vital Signs Nursing Vital Signs: Initial Vital Signs Temperature 97.2 F 05/23/22 12:21 Pulse Rate 101 H 05/23/22 12:21 Respiratory Rate 20 05/23/22 12:21 Blood Pressure 142/71 05/23/22 12:21 O2 Sat by Pulse Oximetry 96 05/23/22 12:21 Pain Scale Pain Intensity 5 - Physical Exam General Appearance: no apparent distress, alert Eye Exam: PERRL/EOMI Ears, Nose, Throat Exam: normal ENT inspection Neck Exam: normal inspection, full range of motion Respiratory Exam: normal breath sounds, lungs clear Cardiovascular Exam: regular rate/rhythm, normal heart sounds Gastrointestinal/Abdomen Exam: soft, normal bowel sounds, No tenderness Back Exam: normal inspection Extremity Exam: normal inspection, normal range of motion Neurologic Exam: alert, oriented x 3, cooperative, repossessor II-XII nml as tested Skin Exam: normal color SpO2 Interpretation: normal SpO2: 96 O2 Delivery: Room Air - Course EKG Interpreted by Me: RATE ([id number]), Sinus Rhythm, NORMAL AXIS, NORMAL INTERVALS, NORMAL QRS Ordered Tests: Active Orders 24 hr Category Date Time Status CHEST 1 VIEW (PORTABLE) Stat Exams 05/23/22 13:55 Taken CBC W DIFF Stat Lab 05/23/22 13:02 Completed CMP Stat Lab 05/23/22 13:02 Completed D-DIMER QUANTITATIVE Stat Lab 05/23/22 13:02 Completed HCG,QUALITATIVE URINE Stat Lab 05/23/22 13:05 Completed TROPONIN Q4H Lab 05/23/22 13:00 Completed TROPONIN Q4H Lab 05/23/22 17:00 Ordered TROPONIN Q4H Lab 05/23/22 21:00 Ordered UA W/RFX CULTURE Stat Lab 05/23/22 13:02 Completed Medication Summary Discontinued Medications Generic Name Dose Route Start Last Admin Trade Name Freq PRN Reason Stop Dose Admin Ketorolac Tromethamine 30 mg 05/23/22 14:23 05/23/22 14:26 Ketorolac Tromethamine 30 Mg/Ml Inj IM 05/23/22 14:24 30 mg STAT ONE Administration Ketorolac Tromethamine Confirm 05/23/22 14:24 Ketorolac Tromethamine 30 Mg/Ml Inj Administered 05/23/22 14:25 Dose 30 mg .ROUTE .CT [employer]al ONE Lab/Rad Data: Laboratory Result Diagrams 05/23/22 13:02 05/23/22 13:02 Laboratory Results 05/23/22 05/23/22 05/23/22 Range/Units 13:05 13:02 13:02 WBC (4.0-10.5) x10^3/uL RBC (4.1-5.4) x10^6/uL Hgb (12.0-16.0) g/dL Hct (35-47) % MCV (78-100) fL MCH (26-32) pg MCHC (32-36) g/dL RDW (11.5-14.0) % Plt Count (150-450) x10^3/uL MPV (7.5-11.0) fL Gran % (36.0-66.0) % Immature Gran % (Auto) (0.00-0.4) % Nucleat RBC Rel Count (0.00-0.1) % Eos # (Auto) (0-0.5) x10^3/uL Immature Gran # (Auto) (0.00-0.03) x10^3u/L Absolute Lymphs (auto) (1.0-4.6) x10^3/uL Absolute Monos (auto) (0.0-1.3) x10^3/uL Absolute Nucleated RBC (0.00-0.01) x10^3u/L Lymphocytes % (24.0-44.0) % Monocytes % (0.0-12.0) % Eosinophils % (0.00-5.0) % Basophils % (0.0-0.4) % Absolute Granulocytes (1.4-6.9) x10^3/uL Basophils # (0-0.4) x10^3/uL D-Dimer < 0.19 (0.0-0.50) mg/L Sodium (137-145) mmol/L Potassium (3.5-5.1) mmol/L Chloride (98-107) mmol/L Carbon Dioxide (22-30) mmol/L Anion Gap (5-15) MEQ/L BUN (7-17) mg/dL Creatinine (0.52-1.04) mg/dL Estimated GFR ML/MIN Glucose (74-106) mg/dL Calcium (8.4-10.2) mg/dL Total Bilirubin (0.2-1.3) mg/dL AST (14-36) U/L ALT (0-35) U/L Alkaline Phosphatase (38-126) U/L Troponin I (0.000-0.034) ng/mL Serum Total Protein (6.3-8.2) g/dL Albumin (3.5-5.0) g/dL Urinalys Dipstick Clnc MAIN LAB Urine Color YELLOW (YELLOW) Urine Appearance CLEAR (CLEAR) Urine pH 6.0 (5-6) Ur Specific [place] >=1.030 (1.005-1.025) POC Urine Protein Conf NEGATIVE (Negative) Urine Ketones NEGATIVE (NEGATIVE) Urine Nitrite NEGATIVE (NEGATIVE) Urine Bilirubin NEGATIVE (NEGATIVE) Urine Urobilinogen 0.2 (0-1) mg/dL Urine Leukocytes NEGATIVE (NEGATIVE) Urine WBC (Auto) 0-2 (0-5) /HPF Urine RBC (Auto) NONE (0-2) /HPF U Epithel Cells (Auto) FEW (FEW) /HPF Urine Bacteria (Auto) RARE (NEGATIVE) /HPF Urine RBC NEGATIVE (0-5) Kavon/ul Urine Mucus (Auto) SLIGHT (NEGATIVE) /HPF Ur Culture Indicated? NO Urine Glucose 100 (NEGATIVE) mg/dL Urine HCG, Qual NEGATIVE (Negative) 05/23/22 05/23/22 05/23/22 Range/Units 13:02 13:02 13:00 WBC 9.3 (4.0-10.5) x10^3/uL RBC 4.48 (4.1-5.4) x10^6/uL Hgb 12.4 (12.0-16.0) g/dL Hct 39.7 (35-47) % MCV 88.6 (78-100) fL MCH 27.7 (26-32) pg MCHC 31.2 L (32-36) g/dL RDW 15.2 H (11.5-14.0) % Plt Count 250 (150-450) x10^3/uL MPV 11.9 H (7.5-11.0) fL Gran % 61.3 (36.0-66.0) % Immature Gran % (Auto) 0.6 H (0.00-0.4) % Nucleat RBC Rel Count 0.0 (0.00-0.1) % Eos # (Auto) 0.15 (0-0.5) x10^3/uL Immature Gran # (Auto) 0.06 H (0.00-0.03) x10^3u/L Absolute Lymphs (auto) 2.95 (1.0-4.6) x10^3/uL Absolute Monos (auto) 0.38 (0.0-1.3) x10^3/uL Absolute Nucleated RBC 0.00 (0.00-0.01) x10^3u/L Lymphocytes % 31.9 (24.0-44.0) % Monocytes % 4.1 (0.0-12.0) % Eosinophils % 1.6 (0.00-5.0) % Basophils % 0.5 (0.0-0.4) % Absolute Granulocytes 5.67 (1.4-6.9) x10^3/uL Basophils # 0.05 (0-0.4) x10^3/uL D-Dimer (0.0-0.50) mg/L Sodium 142 (137-145) mmol/L Potassium 4.9 (3.5-5.1) mmol/L Chloride 105 (98-107) mmol/L Carbon Dioxide 29 (22-30) mmol/L Anion Gap 13.4 (5-15) MEQ/L BUN 12 (7-17) mg/dL Creatinine 0.56 (0.52-1.04) mg/dL Estimated GFR > 60.0 ML/MIN Glucose 225 H (74-106) mg/dL Calcium 9.6 (8.4-10.2) mg/dL Total Bilirubin 0.20 (0.2-1.3) mg/dL AST 55 H (14-36) U/L ALT 62 H (0-35) U/L Alkaline Phosphatase 124 (38-126) U/L Troponin I < 0.012 (0.000-0.034) ng/mL Serum Total Protein 6.8 (6.3-8.2) g/dL Albumin 4.0 (3.5-5.0) g/dL Urinalys Dipstick Clnc Urine Color (YELLOW) Urine Appearance (CLEAR) Urine pH (5-6) Ur Specific [place] (1.005-1.025) POC Urine Protein Conf (Negative) Urine Ketones (NEGATIVE) Urine Nitrite (NEGATIVE) Urine Bilirubin (NEGATIVE) Urine Urobilinogen (0-1) mg/dL Urine Leukocytes (NEGATIVE) Urine WBC (Auto) (0-5) /HPF Urine RBC (Auto) (0-2) /HPF U Epithel Cells (Auto) (FEW) /HPF Urine Bacteria (Auto) (NEGATIVE) /HPF Urine RBC (0-5) Kavon/ul Urine Mucus (Auto) (NEGATIVE) /HPF Ur Culture Indicated? Urine Glucose (NEGATIVE) mg/dL Urine HCG, Qual (Negative) - Progress Progress: improved Air Movement: good Progress Note: 05/23/22 14:58 21 years old is evaluated for bilateral lower chest pain. EKG is normal sinus rhythm. Negative initial troponin and D-dimer. Chest x-ray no acute c ardiopulmonary findings. Official x-ray report is pending. She is given Toradol for symptomatic relief and on reevaluation feeling much better. Pain is more of musculoskeletal with some reproducibility on movements, low heart score, do not think needs further work-up and is being discharged with outpatient follow-up. Discussed signs symptoms of worsening needing return to ER which she seems understanding. Blood Culture(s) Obtained: No Antibiotics given: No Counseled pt/family regarding: lab results, diagnosis, need for follow-up, rad results - Departure Departure Disposition: Home Clinical Impression: Atypical chest pain Condition: Stable Critical Care Time: No Referrals: MARCUS ANDERSON NP [Primary Care Provider] - Follow up/PCP as directed (1-2 days for reevaluation) Instructions: Angina, Chest Pain (DC) Additional Instructions: Take Tylenol/ibuprofen as needed. Follow-up with primary care for reevaluation. Return to ER for worsening chest pain not if having difficulty breathing etc.
[2022-05-23 15:03] VITALS: BP 113/69; PULSE 87
== END 2022-05-23 15:08 | disposition home or self-care (01) ==
LOC: ED 12:20
DX: R07.89 Other chest pain (principal); Z79.899 Other long term (current) drug therapy
CPT/HCPCS: 36415; 71045; 80053; 81015; 81025; 84484; 85025; 85379; 96372; 99283; J1885

== ENCOUNTER 2022-07-09 04:44 | Emergency (ER) | payer MEDICAID ==
--- NOTE | 2022-07-09 05:48 | ERPHSYRPT ---
- History of Present Illness Time Seen by Provider: 07/09/22 04:55 Source: patient Exam Limitations: no limitations Patient Subjective Stated Complaint: pt arrived by ambulance, ambulated through ambulance bay to room, states that she is having pain under both ribs that began yesterday at 9 pm. unknown why she is having pain Triage Nursing Assessment: pt is alert nd oriented rates pain as 8/10 Physician History: This is a 21-year-old white female patient who has a history of anxiety and was brought in to the emergency department by the ambulance because of pain in her bilateral lower ribs of unknown origin. Approximately 9 to 9:30 PM on 07/08/2022 patient began having discomfort in the anterior lower bilateral ribs. She did not suffer any acute traumatic injury. She has never had anything like this before. She denies any strenuous activity or heavy lifting. She has no chest pain. She has no shortness of breath. She denies cough. She has had no fever. She does not have flulike symptoms. Timing/Duration: yesterday (To moderate) Severity: mild Modifying Factors: Improves With: nothing Associated Symptoms: denies symptoms Allergies/Adverse Reactions: Penicillins Allergy (Severe, Verified 05/11/22 03:32) Rash Home Medications: Fluoxetine HCl 20 mg [Prozac 20 MG] 1 ea DAILY 06/17/21 [History] Buspirone HCl 5 mg [Buspar 5 mg] 5 mg PO DAILY 05/23/22 [History] Escitalopram Oxalate 10 mg PO DAILY 05/23/22 [History] Prazosin HCl [Minipress] 1 mg PO DAILY 05/23/22 [History] Hx Tetanus, Diphtheria Vaccination/Date Given: Yes Hx Influenza Vaccination/Date Given: No Hx Pneumococcal Vaccination/Date Given: No Travel Risk - International Travel Have you traveled outside of the country in past 3 weeks: No - Coronavirus Screening Are you exhibiting any of the following symptoms?: No Close contact with a COVID-19 positive Pt in past 14-21 Days: No - Vaccine Status Have you recieved a Covid-19 vaccination: Yes Steward/Stewardess Banquet: Unknown - Vaccination Dates Dates if Unknown: unknown - Review of Systems Constitutional: No Symptoms Eyes: No Symptoms Ears, Nose, & Throat: No Symptoms Respiratory: No Symptoms Cardiac: No Symptoms Abdominal/Gastrointestinal: No Symptoms Genitourinary Symptoms: No Symptoms Musculoskeletal: Other (Bilateral, anterior lower rib pain) Skin: No Symptoms Neurological: No Symptoms Psychological: No Symptoms Endocrine: No Symptoms Hematologic/Lymphatic: No Symptoms Immunological/Allergic: No Symptoms All Other Systems: Reviewed and Negative - Past Medical History Pertinent Past Medical History: Yes Neurological History: No Pertinent History ENT History: No Pertinent History Cardiac History: No Pertinent History Respiratory History: No Pertinent History Endocrine Medical History: No Pertinent History Musculoskeletal History: No Pertinent History GI Medical History: Gallbladder Disease History: No Pertinent History Psycho-Social History: Anxiety, Bipolar, Depression, Other Female Reproductive Disorders: Menstrual Problems, Other Other Medical History: ovarian cyst, MR, personality disorder - Past Surgical History Past Surgical History: Yes Neuro Surgical History: No Pertinent History Cardiac: No Pertinent History Respiratory: No Pertinent History Gastrointestinal: Cholecystectomy Genitourinary: No Pertinent History Musculoskeletal: No Pertinent History Female Surgical History: Other Other Surgical History: ovarian cyst removed surgically - Social History Smoking Status: Never smoker Exposure to second hand smoke: Yes Drug Use: none Patient Lives Alone: No Significant Family History: no pertinent family hx - Female History Hx Last Menstrual Period: 07/07/22 Hx Now: No - Nursing Vital Signs Nursing Vital Signs: Initial Vital Signs Temperature 97.7 F 07/09/22 04:45 Pulse Rate 102 H 07/09/22 04:45 Respiratory Rate 18 07/09/22 04:45 Blood Pressure 133/90 07/09/22 04:45 O2 Sat by Pulse Oximetry 102 H 07/09/22 04:45 Pain Scale Pain Intensity 9 - Physical Exam General Appearance: no apparent distress, alert, anxiety, obese Eye Exam: PERRL/EOMI, eyes nml inspection Ears, Nose, Throat Exam: normal ENT inspection, moist mucous membranes Neck Exam: normal inspection, non-tender, supple, full range of motion Respiratory Exam: normal breath sounds, lungs clear, airway intact, No chest tenderness, No respiratory distress Cardiovascular Exam: regular rate/rhythm, normal heart sounds, normal peripheral pulses Gastrointestinal/Abdomen Exam: soft, normal bowel sounds, No tenderness Pelvic Exam: not done Rectal Exam: not done Back Exam: normal inspection Extremity Exam: normal inspection, normal range of motion, pelvis stable Neurologic Exam: alert, oriented x 3, cooperative, health sanitarian II-XII nml as tested, normal mood/affect, nml cerebellar function, nml station & gait, sensation nml Skin Exam: normal color, warm, dry Lymphatic Exam: No adenopathy SpO2 Interpretation: normal SpO2: 102 O2 Delivery: Room Air - Course Nursing assessment & vital signs reviewed: Yes Ordered Tests: Active Orders 24 hr Category Date Time Status CHEST 2 VIEWS (PA AND LAT) Stat Exams 07/09/22 05:02 Taken - Progress Progress: unchanged Progress Note: 07/09/22 05:46 Chest x-ray shows no acute cardiopulmonary process. Counseled pt/family regarding: diagnosis, need for follow-up, rad results - Departure Departure Disposition: Home Clinical Impression: Musculoskeletal chest pain Condition: Stable Critical Care Time: No Referrals: MARCUS ANDERSON NP [Primary Care Provider] - Follow up/PCP as directed Prescriptions: Cyclobenzaprine HCl 10 mg [Cyclobenzaprine 10 MG] 10 mg PO TID #10 tablet Naproxen 500 mg [Naprosyn 500 MG] 500 mg PO BID #10 tablet
[2022-07-09] MEDS ORDERED: Cyclobenzaprine 10 MG PO ONE (05:49)
[2022-07-09] MEDS ORDERED: MOTRIN 400 MG PO ONE (05:49)
[2022-07-09] MEDS ORDERED: Cyclobenzaprine 10 MG ONE (05:51)
[2022-07-09] MEDS ORDERED: MOTRIN 400 MG ONE (05:51)
[2022-07-09 06:01] VITALS: BP 118/76; PULSE 88; O2SAT 99
--- NOTE | 2022-07-09 08:58 | XRAY ---
Indication: Bilateral rib pain. No known injury. Comparison: May 23, 2022 PA/lateral chest again demonstrates normal heart, lungs, and bony thorax.
== END 2022-07-09 06:02 | disposition home or self-care (01) ==
LOC: ED 04:44
DX: R07.89 Other chest pain (principal); R07.81 Pleurodynia; Z79.899 Other long term (current) drug therapy
CPT/HCPCS: 71046; 99283; A9270-GY

== ENCOUNTER 2022-09-17 01:24 | Emergency (ER) | payer MEDICAID ==
[2022-09-17] MEDS ORDERED: ZOFRAN ODT 4 MG PO ONE (01:54)
[2022-09-17] MEDS ORDERED: ZOFRAN ODT 4 MG ONE (01:54)
--- NOTE | 2022-09-17 02:19 | ERPHSYRPT ---
- History of Present Illness Time Seen by Provider: 09/17/22 02:15 Source: patient Exam Limitations: no limitations Patient Subjective Stated Complaint: vomited, abd pain Triage Nursing Assessment: pt ambulated into ER, boyfriend at bedside, pt alert and oriented. Pt c/o vomiting associated with abd pain. Pt states, "I ate a little bit ago and then vomited". Pt denies any diarrhea. Abd soft with active bs x4 quad, tender to LUQ. Physician History: Patient is a 21-year-old female presents to emergency department for evaluation of left upper quadrant abdominal pain and vomiting. Symptoms started approximately an hour prior to arrival. Patient states she ate and later vomited. At that time her left upper quadrant abdominal pain started. No trauma. No fever. No urinary complaints. No dysuria hematuria urgency or frequency. Patient denies a history of the same. Symptoms are mild to moderate in intensity. No specific worsening improving factors. Patient voices no other complaints or concerns at this time. Portions of this note were created with voice recognition technology. There may be grammatical, spelling, punctuation or sound alike errors Timing/Duration: today Severity: moderate Modifying Factors: Improves With: nothing Associated Symptoms: denies symptoms, No shortness of breath, No diaphoresis, No cough, No syncope, No seizure, No weakness Allergies/Adverse Reactions: Penicillins Allergy (Severe, Verified 09/17/22 01:43) Rash Home Medications: Fluoxetine HCl 20 mg [Prozac 20 MG] 1 ea DAILY 06/17/21 [History] Buspirone HCl 5 mg [Buspar 5 mg] 5 mg PO DAILY 05/23/22 [History] Escitalopram Oxalate 10 mg PO DAILY 05/23/22 [History] Prazosin HCl [Minipress] 1 mg PO DAILY 05/23/22 [History] Hx Tetanus, Diphtheria Vaccination/Date Given: Yes Hx Influenza Vaccination/Date Given: Yes Hx Pneumococcal Vaccination/Date Given: No Immunizations Up to Date: Yes Travel Risk - International Travel Have you traveled outside of the country in past 3 weeks: No - Coronavirus Screening Are you exhibiting any of the following symptoms?: Yes Symptoms: Vomiting/Diarrhea Close contact with a COVID-19 positive Pt in past 14-21 Days: No - Vaccine Status Have you recieved a Covid-19 vaccination: No Spiral Winding Machine Helper: Unknown - Vaccination Dates Dates if Unknown: unknown - Review of Systems Constitutional: No Symptoms, No Fever, No Chills Eyes: No Symptoms Ears, Nose, & Throat: No Symptoms Respiratory: No Symptoms, No Cough, No Dyspnea Cardiac: No Symptoms, No Chest Pain, No Edema, No Syncope Abdominal/Gastrointestinal: No Symptoms, No Abdominal Pain, No Nausea, No Vomiting, No Diarrhea Genitourinary Symptoms: No Symptoms, No Dysuria Musculoskeletal: No Symptoms, No Back Pain, No Neck Pain Skin: No Symptoms, No Rash Neurological: No Symptoms, No Dizziness, No Focal Weakness, No Sensory Changes Psychological: No Symptoms Endocrine: No Symptoms Hematologic/Lymphatic: No Symptoms Immunological/Allergic: No Symptoms All Other Systems: Reviewed and Negative - Past Medical History Pertinent Past Medical History: Yes Neurological History: No Pertinent History ENT History: No Pertinent History Cardiac History: No Pertinent History Respiratory History: No Pertinent History Endocrine Medical History: No Pertinent History Musculoskeletal History: No Pertinent History GI Medical History: Gallbladder Disease History: No Pertinent History Psycho-Social History: Anxiety, Bipolar, Depression, Other Female Reproductive Disorders: Menstrual Problems, Other Other Medical History: ovarian cyst, MR, personality disorder - Past Surgical History Past Surgical History: Yes Neuro Surgical History: No Pertinent History Cardiac: No Pertinent History Respiratory: No Pertinent History Gastrointestinal: Cholecystectomy Genitourinary: No Pertinent History Musculoskeletal: No Pertinent History Female Surgical History: Other Other Surgical History: ovarian cyst removed surgically - Social History Smoking Status: Current every day smoker How long have you smoked: 3 yrs Exposure to second hand smoke: Yes Drug Use: none Patient Lives Alone: No Significant Family History: no pertinent family hx - Female History Hx Last Menstrual Period: Jul, 2022 Hx Now: No - Nursing Vital Signs Nursing Vital Signs: Initial Vital Signs Temperature 97.1 F 09/17/22 01:28 Pulse Rate 103 H 09/17/22 01:28 Respiratory Rate 18 09/17/22 01:28 Blood Pressure 123/81 09/17/22 01:28 O2 Sat by Pulse Oximetry 98 09/17/22 01:28 Pain Scale Pain Intensity 9 - Physical Exam General Appearance: no apparent distress, alert Eye Exam: PERRL/EOMI, eyes nml inspection Ears, Nose, Throat Exam: normal ENT inspection, TMs normal, pharynx normal, moist mucous membranes Neck Exam: normal inspection, non-tender, supple, full range of motion Respiratory Exam: normal breath sounds, lungs clear, airway intact, No respiratory distress Cardiovascular Exam: regular rate/rhythm, normal heart sounds, normal peripheral pulses Gastrointestinal/Abdomen Exam: soft, normal bowel sounds, No tenderness, No mass Back Exam: normal inspection, normal range of motion, No CVA tenderness, No vertebral tenderness Extremity Exam: normal inspection, normal range of motion, pelvis stable Neurologic Exam: alert, oriented x 3, cooperative, normal mood/affect, nml cerebellar function, nml station & gait, sensation nml, No motor deficits Skin Exam: normal color, warm, dry, No rash Lymphatic Exam: No adenopathy SpO2 Interpretation: normal SpO2: 98 O2 Delivery: Room Air - Course Nursing assessment & vital signs reviewed: Yes - CT Exams Abdomen/Pelvis CT Interpretation: Tele-radiologist Report (No evidence of acute intra-abdominal or pelvic pathology) Ordered Tests: Active Orders 24 hr Category Date Time Status ABDOMEN AND PELVIS W/0 CONTRAS [CT] Stat Exams 09/17/22 01:53 Taken HCG QUALITATIVE,SERUM Stat Lab 09/17/22 01:30 Completed Medication Summary Discontinued Medications Generic Name Dose Route Start Last Admin Trade Name Freq PRN Reason Stop Dose Admin Ondansetron HCl 4 mg 09/17/22 01:54 09/17/22 01:55 Zofran 4 Mg/Udtablet Orally Disintegrating PO 09/17/22 01:55 4 mg STAT ONE Administration Ondansetron HCl Confirm 09/17/22 01:54 Zofran 4 Mg/Udtablet Orally Disintegrating Administered 09/17/22 01:55 Dose 4 mg .ROUTE .Taigen-MED ONE Lab/Rad Data: Laboratory Results 09/17/22 Range/Units 01:30 Serum , Qual NEGATIVE (Negative) - Progress Progress: improved Progress Note: Patient reassessed. She is well. Patient tolerated p.o. Work-up negative. P regnancy negative. Patient urinated prior to arrival. Patient dates she cannot give us urine sample at this time. However patient that she is ready for discharge. Patient has no urinary complaints. No indication for further work- up at this time. Will discharge home. Patient agrees to follow-up with her primary care doctor within 40 hours for evaluation. Portions of this note were created with voice recognition technology. There may be grammatical, spelling, punctuation or sound alike errors 09/17/22 04:56 Counseled pt/family regarding: lab results, diagnosis, need for follow-up, rad results - Departure Departure Disposition: Home Clinical Impression: Nausea & vomiting, Abdominal pain Condition: Stable Critical Care Time: No Referrals: MARCUS ANDERSON, CENTER DIRECTOR [Primary Care Provider] - Follow up/PCP as directed Additional Instructions: Discharge/Care Plan MEGANANTONI ROSEANNE was seen on 09/17/22 in the Emergency Room. The patient was counseled regarding Diagnosis,Lab results, Imaging studies, need for follow up and when to return to the Emergency Room. Prescriptions given: Discharge Note I have spoken with the patient and/or caregivers. I have explained the patient's condition, diagnosis and treatment plan based on the information available to me at this time. I have answered the patient's and/or caregiver's questions and addressed any concerns. The patient and/or caregivers have as good understanding of the patient's diagnosis, condition and treatment plan as can be expected at this point. The vital signs have been stable. The patient's condition is stable and appropriate for discharge from the emergency department. The patient will pursue further outpatient evaluation with the primary care physician or other designated or consulting physician as outlined in the discharge instructions. The patient and/or caregivers are agreeable to this plan of care and follow-up instructions have been explained in detail. The patient and/or caregivers have received these instruction. The patient/and or caregivers are aware that any significant change in condition or worsening of symptoms should prompt an immediate return to this or the closest emergency department or call 911.
[2022-09-17 05:09] VITALS: BP 114/79; PULSE 98; O2SAT 97
--- NOTE | 2022-09-17 08:55 | XRAY ---
Indication: Left abdomen pain, nausea, and vomiting. Multiple contiguous axial images obtained through the abdomen and pelvis without contrast. Comparison: April 17, 2022 Lung bases clear of infiltrate and effusion. Heart is not enlarged. Stomach markedly distended with food/fluid. Noncontrasted stomach and bowel loops appear nonobstructed with normal appendix. Again mild fatty liver and cholecystectomy. No free fluid/air. Remaining liver, pancreas, spleen, adrenal glands, kidneys, ureters, bladder, uterus, and aorta are unremarkable for noncontrast exam. Osseous structures intact. Impression: Again fatty liver. Remaining CT abdomen/pelvis without contrast exam is negative. Comment: Preliminary interpretation made by [facility]. No critical discrepancy.
== END 2022-09-17 05:10 | disposition home or self-care (01) ==
LOC: ED 01:24
DX: R10.12 Left upper quadrant pain (principal); R11.2 Nausea with vomiting, unspecified; Z79.899 Other long term (current) drug therapy; Z28.310 Unvaccinated for COVID-19; Z72.0 Tobacco use
CPT/HCPCS: 36000; 36415; 74176; 84703; 99283; Q0162

== ENCOUNTER 2023-03-20 03:40 | Emergency (ER) | payer MEDICAID ==
[2023-03-20] MEDS ORDERED: Pepcid 20 MG VIAL IV ONE ×2 (03:59→04:01)
[2023-03-20] MEDS ORDERED: solu-MEDROL 125 MG, Sterile H2O 10 ml 2 ML IV ONE ×2 (03:59)
[2023-03-20] MEDS ORDERED: Sterile H2O 10 ml IJ ONE (04:00)
[2023-03-20] MEDS ORDERED: solu-MEDROL ONE (04:01)
--- NOTE | 2023-03-20 04:50 | ERPHSYRPT ---
- History of Present Illness Time Seen by Provider: 03/20/23 04:45 Source: patient Exam Limitations: no limitations Patient Subjective Stated Complaint: pt states she was eating peanut butter about 50mins ago then remembered that she was allergic so she called 911. she states that she has a history of panic attacks and had one after realizing what she had done. reports feeling like her throat is swollen and painful, pain to mid upper abdomen, and difficulty breathing. Triage Nursing Assessment: pt brought to room 6 via EMS stretcher and transfered self over to cot. pt is alert and oriented times three, able to move all extremities, speaking in complete sentences with resp even and unlabored. lung sounds clear bilat posterior and anterior. heart sounds normal and regular. all 4 extremities with palpable pulses. abd soft, nontender, nondistended. no mouth, tongue, or throat swelling noted. no rash, hives, or skin irritation noted. pt reports that she has a history of suicidal ideations and self harm but denies any thoughts at this time of harming herself or others or of suicide. Physician History: Patient is a 22-year-old female presents to emergency department via EMS for evaluation of possible allergic reaction and panic attack. Patient states she has an allergy to peanut butter. Patient awoke early this morning had peanut butter and realized that she should not be having it. Patient developed a panic attack and called 911 for evaluation. Patient states she feels that her throat is swelling. Patient has mild abdominal pain.Patient says it feels as though she is having difficulty breathing however patient is in no respiratory distress at this time.No nausea vomiting or diaphoresis. No fever. No trauma. Ingestion occurred approximately 1 hour prior to arrival. Patient voices no other complaints or concerns at this time. Portions of this note were created with voice recognition technology. There may be grammatical, spelling, punctuation or sound alike errors Timing/Duration: today Severity: mild Modifying Factors: Improves With: nothing Allergies/Adverse Reactions: peanut Allergy (Severe, Verified 03/20/23 04:06) Difficulty Swallowing Penicillins Allergy (Severe, Verified 03/20/23 04:06) Rash Home Medications: Buspirone HCl 5 mg [Buspar 5 mg] 5 mg PO BID 05/23/22 [History] Escitalopram Oxalate 10 mg PO DAILY 05/23/22 [History] Prazosin HCl [Minipress] 2 mg PO HS 05/23/22 [History] Ropinirole HCl 0.25 mg PO BID 03/20/23 [History] Trazodone HCl 50 mg [Desyrel 50 mg] 50 mg PO HS PRN 03/20/23 [History] Hx Tetanus, Diphtheria Vaccination/Date Given: Yes Hx Influenza Vaccination/Date Given: Yes Hx Pneumococcal Vaccination/Date Given: No Immunizations Up to Date: Yes Travel Risk - International Travel Have you traveled outside of the country in past 3 weeks: No - Coronavirus Screening Are you exhibiting any of the following symptoms?: No Close contact with a COVID-19 positive Pt in past 14-21 Days: No - Vaccine Status Have you recieved a Covid-19 vaccination: Yes Social Security Benefits Interviewer: Unknown - Vaccination Dates Dates if Unknown: unknown - Review of Systems Constitutional: No Symptoms, No Fever, No Chills Eyes: No Symptoms Ears, Nose, & Throat: No Symptoms Respiratory: No Symptoms, No Cough, No Dyspnea Cardiac: No Symptoms, No Chest Pain, No Edema, No Syncope Abdominal/Gastrointestinal: No Symptoms, No Abdominal Pain, No Nausea, No Vomiting, No Diarrhea Genitourinary Symptoms: No Symptoms, No Dysuria Musculoskeletal: No Symptoms, No Back Pain, No Neck Pain Skin: No Symptoms, No Rash Neurological: No Symptoms, No Dizziness, No Focal Weakness, No Sensory Changes Psychological: No Symptoms Endocrine: No Symptoms Hematologic/Lymphatic: No Symptoms Immunological/Allergic: No Symptoms All Other Systems: Reviewed and Negative - Past Medical History Pertinent Past Medical History: Yes Neurological History: No Pertinent History ENT History: No Pertinent History Cardiac History: No Pertinent History Respiratory History: No Pertinent History Endocrine Medical History: No Pertinent History Musculoskeletal History: No Pertinent History GI Medical History: Gallbladder Disease History: No Pertinent History Psycho-Social History: Anxiety, Bipolar, Depression, Other Female Reproductive Disorders: Menstrual Problems, Other Other Medical History: ovarian cyst, MR, personality disorder - Past Surgical History Past Surgical History: Yes Neuro Surgical History: No Pertinent History Cardiac: No Pertinent History Respiratory: No Pertinent History Gastrointestinal: Cholecystectomy Genitourinary: No Pertinent History Musculoskeletal: No Pertinent History Female Surgical History: Other Other Surgical History: ovarian cyst removed surgically - Social History Smoking Status: Former smoker How long have you smoked: 3 yrs Exposure to second hand smoke: Yes Drug Use: none Patient Lives Alone: No Significant Family History: no pertinent family hx - Female History Hx Last Menstrual Period: unknown Hx Now: No - Nursing Vital Signs Nursing Vital Signs: Initial Vital Signs Temperature 79.6 F 03/20/23 03:46 Pulse Rate 82 03/20/23 03:46 Respiratory Rate 16 03/20/23 03:46 Blood Pressure 122/73 03/20/23 03:46 O2 Sat by Pulse Oximetry 98 03/20/23 03:46 Pain Scale Pain Intensity 8 - Physical Exam General Appearance: no apparent distress, alert Eye Exam: PERRL/EOMI, eyes nml inspection Ears, Nose, Throat Exam: normal ENT inspection, TMs normal, pharynx normal, moist mucous membranes Neck Exam: normal inspection, non-tender, supple, full range of motion Respiratory Exam: normal breath sounds, lungs clear, airway intact, No respiratory distress Cardiovascular Exam: regular rate/rhythm, normal heart sounds, normal peripheral pulses Gastrointestinal/Abdomen Exam: soft, normal bowel sounds, No tenderness, No mass Back Exam: normal inspection, normal range of motion, No CVA tenderness, No vertebral tenderness Extremity Exam: normal inspection, normal range of motion, pelvis stable Neurologic Exam: alert, oriented x 3, cooperative, normal mood/affect, nml cerebellar function, nml station & gait, sensation nml, No motor deficits Skin Exam: normal color, warm, dry, No rash Lymphatic Exam: No adenopathy SpO2 Interpretation: normal SpO2: 100 O2 Delivery: Room Air - Course Nursing assessment & vital signs reviewed: Yes Ordered Tests: Medication Summary Discontinued Medications Generic Name Dose Route Start Last Admin Trade Name Rohini PRN Reason Stop Dose Admin Methylprednisolone Sodium 0 mg 03/20/23 03:59 03/20/23 04:04 Succinate 125 mg/ Sterile IV 03/20/23 04:00 125 mg Water 2 ml STAT ONE Administration Famotidine 20 mg 03/20/23 03:59 03/20/23 04:04 Famotidine 20 Mg/1 Vial IV 03/20/23 04:00 20 mg STAT ONE Administration Famotidine Confirm 03/20/23 04:01 Famotidine 20 Mg/1 Vial Administered 03/20/23 04:02 Dose 20 mg IV .STK-MED ONE Methylprednisolone Sodium Succinate Confirm 03/20/23 04:01 Methylprednis Sod Succ 125 Mg/2 Ml Vial Administered 03/20/23 04:02 Dose 125 mg .ROUTE .STK-MED ONE Sterile Water Confirm 03/20/23 04:00 Water For Injection,Sterile 10 Ml Vial Administered 03/20/23 04:01 Dose 10 ml IJ .STK-MED ONE - Progress Progress: improved Progress Note: Patient is a 22-year-old female presents to our ED via EMS for evaluation of allergic reaction and a panic attack. Patient states she awoke this morning and left the remnants of food off of a knife. Patient later realized it was peanut butter. Patient began to panic as she has a history of peanut allergy.Patient states shortly thereafter she felt as though her throat was tight, she Thornton wes rt of breath and developed epigastric pain. Upon EMS arrival an IV was placed. 25 mg of Benadryl administered.Patient had no signs of allergic reaction in our ED.Patient received Solu-Medrol and Pepcid in our ED.We updated patient's allergy profile to reflect peanut allergy.Patient reassessed. Symptoms resolved. Patient sleeping in the room.No shortness of breath. No wheezing. No skin rash. No pruritus.Patient denies abdominal pain.Patient currently asymptomatic.Vital stable.We will continue to observe patient for total of 3 hours. Patient will then be discharged home. Portions of this note were created with voice recognition technology. There may be grammatical, spelling, punctuation or sound alike errors Complexity of problem addressed is Moderate, chronic illness with exacerbation. No critical care time Complex of data reviewed and analyzed is none. No specialized testing ordered. Diagnosis made based on history and physical exam. Risk of complication and or risk morbidity/mortality patient management is moderate.Prescription for EpiPen will be forwarded to patient's pharmacy. Patient will be discharged home. No indication for further work-up. Patient does not have an EpiPen at home. A prescription for an EpiPen provided as patient should have an EpiPen at all times.Time for the discharge patient is approximately 10 to 15 minutes. Portions of this note were created with voice recognition technology. There may be grammatical, spelling, punctuation or sound alike errors 03/20/23 05:07 Counseled pt/family regarding: diagnosis, need for follow-up - Departure Departure Disposition: Home Clinical Impression: Panic attack, Allergic reaction Condition: Stable Critical Care Time: No Referrals: MARCUS ANDERSON NP [Primary Care Provider] - Follow up/PCP as directed Additional Instructions: Discharge/Care Plan ANTONI GUZMAN was seen on 03/20/23 in the Emergency Room. The patient was counseled regarding Diagnosis,Lab results, Imaging studies, need for follow up and when to return to the Emergency Room. Prescriptions given: Discharge Note I have spoken with the patient and/or caregivers. I have explained the patient's condition, diagnosis and treatment plan based on the information available to me at this time. I have answered the patient's and/or caregiver's questions and addressed any concerns. The patient and/or caregivers have as good understanding of the patient's diagnosis, condition and treatment plan as can be expected at this point. The vital signs have been stable. The patient's condition is stable and appropriate for discharge from the emergency department. The patient will pursue further outpatient evaluation with the primary care physician or other designated or consulting physician as outlined in the discharge instructions. The patient and/or caregivers are agreeable to this plan of care and follow-up instructions have been explained in detail. The patient and/or caregivers have received these instruction. The patient/and or caregivers are aware that any significant change in condition or worsening of symptoms should prompt an immediate return to this or the closest emergency department or call 911. Prescriptions: EPINEPHrine [Epipen 0.3 MG] 0.3 mg IJ DAILY #2 units
[2023-03-20 06:05] VITALS: BP 107/75; PULSE 63; O2SAT 94
== END 2023-03-20 06:45 | disposition home or self-care (01) ==
LOC: ED 03:40
DX: T78.1XXA Other adverse food reactions, not elsewhere classified, initial encounter (principal); F41.0 Panic disorder [episodic paroxysmal anxiety]; R10.9 Unspecified abdominal pain; Z79.899 Other long term (current) drug therapy
CPT/HCPCS: 36000; 96374; 96375; 99283; J2930

== ENCOUNTER 2023-03-28 01:41 | Emergency (ER) | payer MEDICAID ==
[2023-03-28 02:46] LABS: Absolute Neutrophil Ct (ANC) 4.69 x10^3/uL (1.4-6.9); BASOPHIL % 0.3 % (0.0-0.4); Basophil (Absolute #) 0.03 x10^3/uL (0-0.4); Eosinophil % 1.5 % (0.00-5.0); Eosinophil (Absolute #) 0.13 x10^3/uL (0-0.5); Hematocrit 39.8 % (35-47); Hemoglobin 12.6 g/dL (12.0-16.0); IMMATURE GRAN # 0.01 x10^3u/L (0.00-0.03); IMMATURE GRAN % 0.1 % (0.00-0.4); Lymphocyte (Absolute #) 3.36 x10^3/uL (1.0-4.6); Lymphocytes % 38.8 % (24.0-44.0); Mean Corpuscular Hemoglobin 26.9 pg (26-32); Mean Corpuscular Hgb Concent. 31.7 g/dL (32-36); Mean Platelet Volume 11.3 fL (7.5-11.0); Monocyte (Absolute #) 0.44 x10^3/uL (0.0-1.3); Monocytes % 5.1 % (0.0-12.0); Neutrophil % 54.2 % (36.0-66.0); Platelet Count 242 x10^3/uL (150-450); Red Blood Count 4.68 x10^6/uL (4.1-5.4); Red Cell Distribution Width 15.4 % (11.5-14.0); White Blood Count 8.7 x10^3/uL (4.0-10.5)
[2023-03-28 02:49] LABS: HCG URINE TEST NEGATIVE (NEGATIVE)
[2023-03-28] MEDS ORDERED: TORAdol 30 mg Injection ONE (02:54)
[2023-03-28] MEDS ORDERED: Zofran 4 MG/2 ML VIAL ONE (02:54)
[2023-03-28] MEDS ORDERED: Sodium Chloride 0.9% 1000 ML 1,000 ML ONE (02:54)
[2023-03-28 02:55] LABS: Appearance Cloudy (Clear); Bacteria Many /HPF (None Seen); Bilirubin Negative (Negative); Blood Negative (Negative); Epithelial Cells Moderate /HPF (None Seen); Glucose, Urine 100 mg/dL (Negative); Ketones Trace (Negative); Leukocyte Esterase Small (Negative); Nitrite Positive (Negative); Protein,Urine Dip Negative (Negative); RBC 0-2 /HPF (0-5); Specific Gravity >=1.030 (1.005-1.030); Urobilinogen 0.2 mg/dL (0.2); WBC 21-50 /HPF (0-5)
[2023-03-28 02:58] LABS: ALBUMIN 4.2 g/dL (3.5-5.0); ALKALINE PHOSPHATASE 89 U/L (38-126); AMYLASE 49 U/L (30-110); ANION GAP 14.1 MEQ/L (5-15); BLOOD UREA NITROGEN 11 mg/dL (7-17); CHLORIDE 106 mmol/L (98-107); Calcium 9.6 mg/dL (8.4-10.2); Carbon Dioxide 26 mmol/L (22-30); Creatinine 1 0.75 mg/dL (0.52-1.04); EST GLOMERULAR FILTRATION RATE > 60.0 ML/MIN; Glucose 208 mg/dL (74-106); LIPASE 27 U/L (23-300); Potassium 3.7 mmol/L (3.5-5.1); SGOT/AST 51 U/L (14-36); SGPT/ALT 46 U/L (0-35); SODIUM 143 mmol/L (137-145); Total Protein 7.5 g/dL (6.3-8.2)
[2023-03-28 03:04] LABS: Amphetamine,Urine NEGATIVE (NEGATIVE); Barbiturate,Urine NEGATIVE (NEGATIVE); Benzodiazepine,Urine NEGATIVE (NEGATIVE); Cocaine,Urine NEGATIVE (NEGATIVE); Methadone,Urine NEGATIVE (NEGATIVE); Opiate,Urine NEGATIVE (NEGATIVE); PCP,Urine NEGATIVE (NEGATIVE); THC,Urine NEGATIVE (NEGATIVE)
[2023-03-28 03:08] LABS: ADD URINE CULTURE? YES (NO)
[2023-03-28] MEDS: Zofran 4 MG/2 ML VIAL IV ONE (03:18)
[2023-03-28] MEDS: Sodium Chloride 0.9% 1000 ML 1,000 ML IV STA (03:18)
[2023-03-28] MEDS: TORAdol 30 mg Injection IV ONE (03:19)
--- NOTE | 2023-03-28 03:38 | ERPHSYRPT ---
- History of Present Illness Time Seen by Provider: 03/28/23 01:45 Historian: patient, family Exam Limitations: no limitations Patient Subjective Stated Complaint: pt states "my stomach started hurting. it woke me up. I don't know if it is an ovarian cyst or what." Triage Nursing Assessment: c/o LLQ pain that started 30 mins prior to arrival, pt rating pain 9/10, pt ambulatory to bed by self with soda in her hand, pt advised not to drink anything. pt and grandmother on cell phone during triage Physician History: Patient is a 22-year-old white female who presents with a complaint of left back pain and left abdominal pain. The pain in the left flank started approximately half hour prior to her arrival she denies any nausea vomiting or diarrhea she denies any fever chills or sweats she says it does not hurt to move. She has had her gallbladder out and had a an ovarian cyst removed in the past. Timing/Duration: today Activities at Onset: none Quality: cramping, stabbing Abdominal Pain Onset Location: flank (Left flank) Pain Radiation: LLQ Severity of Pain-Max: moderate Severity of Pain-Current: moderate Modifying Factors: Improves With: nothing Associated Symptoms: denies symptoms Allergies/Adverse Reactions: peanut Allergy (Severe, Verified 03/28/23 01:59) Difficulty Swallowing Penicillins Allergy (Severe, Verified 03/28/23 01:59) Rash Home Medications: Buspirone HCl 5 mg [Buspar 5 mg] 5 mg PO BID 05/23/22 [History] Escitalopram Oxalate 10 mg PO DAILY 05/23/22 [History] Prazosin HCl [Minipress] 2 mg PO HS 05/23/22 [History] Ropinirole HCl 0.25 mg PO BID 03/20/23 [History] Trazodone HCl 50 mg [Desyrel 50 mg] 50 mg PO HS PRN 03/20/23 [History] Hx Tetanus, Diphtheria Vaccination/Date Given: Yes Hx Influenza Vaccination/Date Given: Yes Hx Pneumococcal Vaccination/Date Given: No Travel Risk - International Travel Have you traveled outside of the country in past 3 weeks: No - Coronavirus Screening Are you exhibiting any of the following symptoms?: No Close contact with a COVID-19 positive Pt in past 14-21 Days: No - Vaccine Status Have you recieved a Covid-19 vaccination: Yes Family Practice Physician: Unknown - Vaccination Dates Dates if Unknown: unknown - Review of Systems Constitutional: No Fever, No Chills Eyes: No Symptoms Ears, Nose, & Throat: No Symptoms Respiratory: No Cough, No Dyspnea Cardiac: No Chest Pain, No Edema, No Syncope Abdominal/Gastrointestinal: Abdominal Pain, No Nausea, No Vomiting, No Diarrhea Genitourinary Symptoms: Flank Pain, No Dysuria Musculoskeletal: No Back Pain, No Neck Pain Skin: No Rash Neurological: No Dizziness, No Focal Weakness, No Sensory Changes Psychological: No Symptoms Endocrine: No Symptoms All Other Systems: Reviewed and Negative - Past Medical History Pertinent Past Medical History: Yes Neurological History: No Pertinent History ENT History: No Pertinent History Cardiac History: No Pertinent History Respiratory History: No Pertinent History Endocrine Medical History: No Pertinent History Musculoskeletal History: No Pertinent History GI Medical History: Gallbladder Disease History: No Pertinent History Psycho-Social History: Anxiety, Bipolar, Depression, Other Female Reproductive Disorders: Menstrual Problems, Other Other Medical History: ovarian cyst, MR, personality disorder - Past Surgical History Past Surgical History: Yes Neuro Surgical History: No Pertinent History Cardiac: No Pertinent History Respiratory: No Pertinent History Gastrointestinal: Cholecystectomy Genitourinary: No Pertinent History Musculoskeletal: No Pertinent History Female Surgical History: Other Other Surgical History: ovarian cyst removed surgically - Social History Smoking Status: Former smoker How long have you smoked: 3 yrs Exposure to second hand smoke: Yes Drug Use: none Patient Lives Alone: No Significant Family History: no pertinent family hx - Female History Hx Last Menstrual Period: unk Hx Now: No - Nursing Vital Signs Nursing Vital Signs: Initial Vital Signs Temperature 97.9 F 03/28/23 01:41 Pulse Rate 91 H 03/28/23 01:41 Respiratory Rate 17 03/28/23 01:41 Blood Pressure 95/74 03/28/23 01:41 O2 Sat by Pulse Oximetry 96 03/28/23 01:41 Pain Scale Pain Intensity 8 - Physical Exam General Appearance: mild distress, alert Eye Exam: PERRL/EOMI, eyes nml inspection Ears, Nose, Throat Exam: normal ENT inspection, pharynx normal, moist mucous membranes Neck Exam: normal inspection, non-tender, supple, full range of motion Respiratory Exam: normal breath sounds, lungs clear, No respiratory distress Cardiovascular Exam: regular rate/rhythm, normal heart sounds Gastrointestinal/Abdomen Exam: normal bowel sounds, tenderness (Left lower quadrant), No mass Back Exam: normal inspection, normal range of motion, CVA tenderness (Left), No vertebral tenderness Extremity Exam: normal inspection, normal range of motion, pelvis stable Neurologic Exam: alert, oriented x 3, cooperative, normal mood/affect, nml cerebellar function, sensation nml, No motor deficits Skin Exam: normal color, warm, dry SpO2 Interpretation: normal SpO2: 96 O2 Delivery: Room Air - Course Nursing assessment & vital signs reviewed: Yes - CT Exams Abdomen/Pelvis CT Interpretation: Negative, Tele-radiologist Report Ordered Tests: Active Orders 24 hr Category Date Time Status IV Insertion STAT Care 03/28/23 02:22 Active ABDOMEN AND PELVIS W/0 CONTRAS [CT] Stat Exams 03/28/23 03:07 Taken AMYLASE Stat Lab 03/28/23 02:40 Completed CBC W DIFF Stat Lab 03/28/23 02:40 Completed CMP Stat Lab 03/28/23 02:40 Completed CULTURE,URINE Stat Lab 03/28/23 02:40 Received HCG QUALITATIVE, URINE Stat Lab 03/28/23 02:40 Completed LIPASE Stat Lab 03/28/23 02:40 Completed Lactic Acid Stat Lab 03/28/23 02:40 Completed UA W/RFX UR CULTURE Stat Lab 03/28/23 02:40 Completed Urine Triage Profile Stat Lab 03/28/23 02:40 Completed Medication Summary Discontinued Medications Generic Name Dose Route Start Last Admin Trade Name Freq PRN Reason Stop Dose Admin Sodium Chloride 1,000 mls @ 999 mls/hr 03/28/23 02:22 03/28/23 03:18 Sodium Chloride 0.9% 1000 Ml IV 03/28/23 03:22 999 mls/hr .Q1H1M STA Administration Sodium Chloride Confirm 03/28/23 02:54 Sodium Chloride 0.9% 1000 Ml Administered 03/28/23 02:55 Dose 1,000 mls @ ud .ROUTE .STK-MED ONE Ketorolac Tromethamine 30 mg 03/28/23 02:22 03/28/23 03:19 Ketorolac Tromethamine 30 Mg/Ml Inj IV 03/28/23 02:23 30 mg STAT ONE Administration Ketorolac Tromethamine Confirm 03/28/23 02:54 Ketorolac Tromethamine 30 Mg/Ml Inj Administered 03/28/23 02:55 Dose 30 mg .ROUTE .STK-MED ONE Levofloxacin 500 mg 03/28/23 03:47 03/28/23 03:56 Levofloxacin 500 Mg Tablet PO 03/28/23 03:48 500 mg STAT ONE Administration Levofloxacin Confirm 03/28/23 03:56 Levofloxacin 500 Mg Tablet Administered 03/28/23 03:57 Dose 500 mg .ROUTE .STK-MED ONE Ondansetron HCl 4 mg 03/28/23 02:22 03/28/23 03:18 Ondansetron Hcl 4 Mg/2 Ml Vial IV 03/28/23 02:23 4 mg STAT ONE Administration Ondansetron HCl Confirm 03/28/23 02:54 Ondansetron Hcl 4 Mg/2 Ml Vial Administered 03/28/23 02:55 Dose 4 mg .ROUTE .STK-[facility] ONE Lab/Rad Data: Laboratory Result Diagrams 03/28/23 02:40 03/28/23 02:40 Laboratory Results 03/28/23 03/28/23 03/28/23 Range/Units 02:40 02:40 02:40 WBC (4.0-10.5) x10^3/uL RBC (4.1-5.4) x10^6/uL Hgb (12.0-16.0) g/dL Hct (35-47) % MCV (78-100) fL MCH (26-32) pg MCHC (32-36) g/dL RDW (11.5-14.0) % Plt Count (150-450) x10^3/uL MPV (7.5-11.0) fL Gran % (36.0-66.0) % Immature Gran % (Auto) (0.00-0.4) % Nucleat RBC Rel Count (0.00-0.1) % Eos # (Auto) (0-0.5) x10^3/uL Immature Gran # (Auto) (0.00-0.03) x10^3u/L Absolute Lymphs (auto) (1.0-4.6) x10^3/uL Absolute Monos (auto) (0.0-1.3) x10^3/uL Absolute Nucleated RBC (0.00-0.01) x10^3u/L Lymphocytes % (24.0-44.0) % Monocytes % (0.0-12.0) % Eosinophils % (0.00-5.0) % Basophils % (0.0-0.4) % Absolute Granulocytes (1.4-6.9) x10^3/uL Basophils # (0-0.4) x10^3/uL Sodium (137-145) mmol/L Potassium (3.5-5.1) mmol/L Chloride (98-107) mmol/L Carbon Dioxide (22-30) mmol/L Anion Gap (5-15) MEQ/L BUN (7-17) mg/dL Creatinine (0.52-1.04) mg/dL Estimated GFR ML/MIN Glucose (74-106) mg/dL Lactic Acid (0.4-2.0) Calcium (8.4-10.2) mg/dL Total Bilirubin (0.2-1.3) mg/dL AST (14-36) U/L ALT (0-35) U/L Alkaline Phosphatase (38-126) U/L Serum Total Protein (6.3-8.2) g/dL Albumin (3.5-5.0) g/dL Amylase (30-110) U/L Lipase (23-300) U/L Urine Color Yellow (Yellow) Urine Appearance Cloudy A (Clear) Urine pH 5.0 (4.6-8.0) Ur Specific Whittaker >=1.030 A (1.005-1.030) Urine Protein Negative (Negative) Urine Glucose (UA) 100 A (Negative) mg/dL Urine Ketones Trace A (Negative) Urine Blood Negative (Negative) Urine Nitrite Positive A (Negative) Urine Bilirubin Negative (Negative) Urine Urobilinogen 0.2 (0.2) mg/dL Ur Leukocyte Esterase Small A (Negative) U Hyaline Cast (Auto) 3-5 A (0-2) /LPF Urine Microscopic RBC 0-2 (0-5) /HPF Urine Microscopic WBC 21-50 A (0-5) /HPF Ur Epithelial Cells Moderate A (None Seen) /HPF Urine Bacteria Many A (None Seen) /HPF Urine Yeast (Budding) (None Seen) /HPF Urine Culture Reflexed YES (NO) Urine HCG, Qual NEGATIVE (NEGATIVE) Urine Opiates Level NEGATIVE (NEGATIVE) Ur Methadone NEGATIVE (NEGATIVE) Urine Barbiturates NEGATIVE (NEGATIVE) Ur Phencyclidine (PCP) NEGATIVE (NEGATIVE) Urine Amphetamine NEGATIVE (NEGATIVE) U Benzodiazepine Level NEGATIVE (NEGATIVE) Urine Cocaine NEGATIVE (NEGATIVE) Urine Marijuana (THC) NEGATIVE (NEGATIVE) 03/28/23 03/28/23 03/28/23 Range/Units 02:40 02:40 02:40 WBC 8.7 (4.0-10.5) x10^3/uL RBC 4.68 (4.1-5.4) x10^6/uL Hgb 12.6 (12.0-16.0) g/dL Hct 39.8 (35-47) % MCV 85.0 (78-100) fL MCH 26.9 (26-32) pg MCHC 31.7 L (32-36) g/dL RDW 15.4 H (11.5-14.0) % Plt Count 242 (150-450) x10^3/uL MPV 11.3 H (7.5-11.0) fL Gran % 54.2 (36.0-66.0) % Immature Gran % (Auto) 0.1 (0.00-0.4) % Nucleat RBC Rel Count 0.0 (0.00-0.1) % Eos # (Auto) 0.13 (0-0.5) x10^3/uL Immature Gran # (Auto) 0.01 (0.00-0.03) x10^3u/L Absolute Lymphs (auto) 3.36 (1.0-4.6) x10^3/uL Absolute Monos (auto) 0.44 (0.0-1.3) x10^3/uL Absolute Nucleated RBC 0.00 (0.00-0.01) x10^3u/L Lymphocytes % 38.8 (24.0-44.0) % Monocytes % 5.1 (0.0-12.0) % Eosinophils % 1.5 (0.00-5.0) % Basophils % 0.3 (0.0-0.4) % Absolute Granulocytes 4.69 (1.4-6.9) x10^3/uL Basophils # 0.03 (0-0.4) x10^3/uL Sodium 143 (137-145) mmol/L Potassium 3.7 (3.5-5.1) mmol/L Chloride 106 (98-107) mmol/L Carbon Dioxide 26 (22-30) mmol/L Anion Gap 14.1 (5-15) MEQ/L BUN 11 (7-17) mg/dL Creatinine 0.75 (0.52-1.04) mg/dL Estimated GFR > 60.0 ML/MIN Glucose 208 H (74-106) mg/dL Lactic Acid 2.0 (0.4-2.0) Calcium 9.6 (8.4-10.2) mg/dL Total Bilirubin 0.30 (0.2-1.3) mg/dL AST 51 H (14-36) U/L ALT 46 H (0-35) U/L Alkaline Phosphatase 89 (38-126) U/L Serum Total Protein 7.5 (6.3-8.2) g/dL Albumin 4.2 (3.5-5.0) g/dL Amylase 49 (30-110) U/L Lipase 27 (23-300) U/L Urine Color (Yellow) Urine Appearance (Clear) Urine pH (4.6-8.0) Ur Specific Whittaker (1.005-1.030) Urine Protein (Negative) Urine Glucose (UA) (Negative) mg/dL Urine Ketones (Negative) Urine Blood (Negative) Urine Nitrite (Negative) Urine Bilirubin (Negative) Urine Urobilinogen (0.2) mg/dL Ur Leukocyte Esterase (Negative) U Hyaline Cast (Auto) (0-2) /LPF Urine Microscopic RBC (0-5) /HPF Urine Microscopic WBC (0-5) /HPF Ur Epithelial Cells (None Seen) /HPF Urine Bacteria (None Seen) /HPF Urine Yeast (Budding) (None Seen) /HPF Urine Culture Reflexed (NO) Urine HCG, Qual (NEGATIVE) Urine Opiates Level (NEGATIVE) Ur Methadone (NEGATIVE) Urine Barbiturates (NEGATIVE) Ur Phencyclidine (PCP) (NEGATIVE) Urine Amphetamine (NEGATIVE) U Benzodiazepine Level (NEGATIVE) Urine Cocaine (NEGATIVE) Urine Marijuana (THC) (NEGATIVE) - Progress Progress: unchanged Medical Desision Making - Independent Historian Additional History obtained from: Mother - Diagnostic Testing Diagnostic test were ordered, analyzed, and reviewed by me: Yes Radiological Interpretation: Reviewed by me - Departure Departure Disposition: Home Clinical Impression: UTI (urinary tract infection) Condition: Stable Critical Care Time: No Referrals: MARCUS ANDERSON, DHARMESH [Primary Care Provider] - Follow up/PCP as directed Instructions: Urinary Tract Infection, Adult (DC) Prescriptions: Levofloxacin [Levofloxacin 500 MG Tablet] 500 mg PO QAM #10 tablet
[2023-03-28] MEDS: Levofloxacin 500 MG Tablet PO ONE (03:56)
[2023-03-28] MEDS ORDERED: Levofloxacin 500 MG Tablet ONE (03:56)
--- NOTE | 2023-03-28 04:41 | XRAY ---
CLINICAL HISTORY:pain COMPARISON:CT dated 09/17/2022. TECHNIQUES:Axial CT cuts were taken through the abdomen and pelvis with multiplanar reconstructions without intravenous contrast administration. FINDINGS: Both kidneys are of normal size and shape with no stones or back pressure changes. Normal course and caliber of both ureters with no evidence of stones or mural abnormalities. The gall bladder is surgically removed. Normal filling of the urinary bladder with no stones, masses or diverticula. Normal CT density of the liver parenchyma with average size, regular outline, homogenous texture, and no focal or diffuse mass lesion on non-contrast basis. The retroperitoneal structures including the spleen, adrenal glands and great vessels are grossly within normal limits. Absent pancreatic tail (stable finding). No significant lymph regi enlargement or ascetic fluid collection. The uterus, both adnexa and ischiorectal fossae show normal CT appearance. Bone window images show L3/4 and L5/S1 posterior disc/osteophyte complexes and facet arthropathy (stable finding). Lower chest cuts are unremarkable. Small metallic structure at the umbilicus (stable finding). Spastic different colonic segments. IMPRESSION: 1. No significant interval changes with no significant acute abdominal or pelvic pathology. 2. Additional findings as discussed above. Electronically Signed by: Lilly Johnson MD. (03/28/2023 03:06:49 [employer] ENGINEER)
[2023-03-28 05:05] VITALS: BP 100/72; PULSE 66; O2SAT 98
== END 2023-03-28 05:05 | disposition home or self-care (01) ==
LOC: ED 01:41
DX: N39.0 Urinary tract infection, site not specified (principal); R10.9 Unspecified abdominal pain; M54.50 Low back pain, unspecified; Z79.899 Other long term (current) drug therapy
CPT/HCPCS: 36000; 36415; 74176; 80053; 80307; 81001; 81025; 82150; 83605; 83690; 85025; 87077; 87086; 87186; 96374; 96375; 99284; J1885; J2405; A9270-GY

== ENCOUNTER 2023-06-14 21:38 | Emergency (ER) | payer MEDICAID ==
[2023-06-14 21:49] VITALS: TEMP 97.1
[2023-06-14 22:05] LABS: HCG URINE TEST NEGATIVE (NEGATIVE)
[2023-06-14 22:08] LABS: Appearance Clear (Clear); Bacteria Few /HPF (None Seen); Bilirubin Negative (Negative); Blood Negative (Negative); Epithelial Cells Moderate /HPF (None Seen); Glucose, Urine >=1000 mg/dL (Negative); Hyaline Casts NONE SEEN /LPF (0-2); Ketones Negative (Negative); Leukocyte Esterase Negative (Negative); Nitrite Negative (Negative); Ph 5.5 (4.6-8.0); Protein,Urine Dip Negative (Negative); RBC 0-2 /HPF (0-5); Specific Gravity >=1.030 (1.005-1.030)
[2023-06-14 22:09] LABS: ADD URINE CULTURE? NO (NO)
[2023-06-14 22:19] LABS: Absolute Neutrophil Ct (ANC) 2.82 x10^3/uL (1.4-6.9); BASOPHIL % 0.5 % (0.0-0.4); Basophil (Absolute #) 0.03 x10^3/uL (0-0.4); Eosinophil % 1.7 % (0.00-5.0); Eosinophil (Absolute #) 0.11 x10^3/uL (0-0.5); Hematocrit 40.9 % (35-47); Hemoglobin 12.5 g/dL (12.0-16.0); IMMATURE GRAN # 0.02 x10^3u/L (0.00-0.03); IMMATURE GRAN % 0.3 % (0.00-0.4); Lymphocyte (Absolute #) 3.25 x10^3/uL (1.0-4.6); Lymphocytes % 49.1 % (24.0-44.0); Mean Cell Volume 85.9 fL (78-100); Mean Corpuscular Hemoglobin 26.3 pg (26-32); Mean Corpuscular Hgb Concent. 30.6 g/dL (32-36); Monocyte (Absolute #) 0.39 x10^3/uL (0.0-1.3); Monocytes % 5.9 % (0.0-12.0); Neutrophil % 42.5 % (36.0-66.0); Platelet Count 201 x10^3/uL (150-450); Red Blood Count 4.76 x10^6/uL (4.1-5.4); Red Cell Distribution Width 14.6 % (11.5-14.0); White Blood Count 6.6 x10^3/uL (4.0-10.5)
--- NOTE | 2023-06-14 22:26 | ERPHSYRPT ---
- History of Present Illness Time Seen by Provider: 06/14/23 22:23 Source: patient, family Exam Limitations: no limitations Patient Subjective Stated Complaint: left lower back pain Triage Nursing Assessment: pt ambulated into ER without diff, boyfriend at bedside. Pt c/o left lower back pain that started yesterday. Pt describes it as achy and sharp at times. Left low back is tender to touch. Pt is unsure about . Physician History: Patient is 22-year-old female without any significant past medical history started having a left upper back pain as well as left costovertebral angle area tenderness yesterday. She denies any blood in her urine she denies any fever chills nausea or vomiting. She did not have this type of pain before. She denies any menstrual problems because she has a transdermal progesterone placement. Timing/Duration: yesterday Method of Injury: unknown Quality: aching Associated Symptoms: denies symptoms Previous symptoms: no prior history Body Map: 1 - area of pain Allergies/Adverse Reactions: peanut Allergy (Severe, Verified 06/14/23 21:57) Difficulty Swallowing Penicillins Allergy (Severe, Verified 06/14/23 21:57) Rash Home Medications: Buspirone HCl 5 mg [Buspar 5 mg] 5 mg PO BID 05/23/22 [History] Escitalopram Oxalate 10 mg PO DAILY 05/23/22 [History] Prazosin HCl [Minipress] 2 mg PO HS 05/23/22 [History] Ropinirole HCl 0.25 mg PO BID 03/20/23 [History] Trazodone HCl 50 mg [Desyrel 50 mg] 50 mg PO HS PRN 03/20/23 [History] Hx Tetanus, Diphtheria Vaccination/Date Given: Yes Hx Influenza Vaccination/Date Given: No Hx Pneumococcal Vaccination/Date Given: No Travel Risk - International Travel Have you traveled outside of the country in past 3 weeks: No - Coronavirus Screening Are you exhibiting any of the following symptoms?: No Close contact with a COVID-19 positive Pt in past 14-21 Days: No - Vaccine Status Have you recieved a Covid-19 vaccination: Yes Last Turner: Unknown - Vaccination Dates Dates if Unknown: . - Review of Systems Constitutional: No Fever, No Chills Eyes: No Symptoms Ears, Nose, & Throat: No Symptoms Respiratory: No Cough, No Dyspnea Cardiac: No Chest Pain, No Edema, No Syncope Abdominal/Gastrointestinal: No Abdominal Pain, No Nausea, No Vomiting, No Diarrhea Genitourinary Symptoms: No Dysuria Musculoskeletal: No Back Pain, No Neck Pain Skin: No Rash Neurological: No Dizziness, No Focal Weakness, No Sensory Changes Psychological: No Symptoms Endocrine: No Symptoms All Other Systems: Reviewed and Negative - Past Medical History Pertinent Past Medical History: Yes Neurological History: No Pertinent History ENT History: No Pertinent History Cardiac History: No Pertinent History Respiratory History: No Pertinent History Endocrine Medical History: No Pertinent History Musculoskeletal History: No Pertinent History GI Medical History: Gallbladder Disease History: No Pertinent History Psycho-Social History: Anxiety, Bipolar, Depression, Other Female Reproductive Disorders: Menstrual Problems, Other Other Medical History: ovarian cyst, MR, personality disorder - Past Surgical History Past Surgical History: Yes Neuro Surgical History: No Pertinent History Cardiac: No Pertinent History Respiratory: No Pertinent History Gastrointestinal: Cholecystectomy Genitourinary: No Pertinent History Musculoskeletal: No Pertinent History Female Surgical History: Other Other Surgical History: ovarian cyst removed surgically. throat stretched - Social History Smoking Status: Former smoker How long have you smoked: 3 yrs Exposure to second hand smoke: No Drug Use: none Patient Lives Alone: No Significant Family History: no pertinent family hx - Female History Hx Last Menstrual Period: 2021 Hx Now: No - Nursing Vital Signs Nursing Vital Signs: Initial Vital Signs Temperature 97.1 F 06/14/23 21:48 Pulse Rate 64 06/14/23 21:48 Respiratory Rate 17 06/14/23 21:48 Blood Pressure 148/84 06/14/23 21:48 O2 Sat by Pulse Oximetry 98 06/14/23 21:48 Pain Scale Pain Intensity [Left Lower 9 Back] Pain Intensity 9 - Physical Exam SpO2: 95 - Course Nursing assessment & vital signs reviewed: Yes Ordered Tests: Active Orders 24 hr Category Date Time Status CBC W DIFF Stat Lab 06/14/23 22:16 Completed CMP Stat Lab 06/14/23 22:16 Completed HCG QUALITATIVE, URINE Stat Lab 06/14/23 21:59 Completed UA W/RFX UR CULTURE Stat Lab 06/14/23 21:47 Completed Medication Summary Discontinued Medications Generic Name Dose Route Start Last Admin Trade Name Rohini PRN Reason Stop Dose Admin Metformin HCl 1,000 mg 06/14/23 23:10 Metformin Hcl Er 500 Mg Tab PO 06/14/23 23:11 ONCE ONE Trimethoprim/Sulfamethoxazole 1 tab 06/14/23 22:41 06/14/23 22:47 Smz/Tmp Ds Tablet 1 Tablet PO 06/14/23 22:42 1 tab STAT STA Administration Trimethoprim/Sulfamethoxazole Confirm 06/14/23 22:46 Smz/Tmp Ds Tablet 1 Tablet Administered 06/14/23 22:47 Dose 1 tab PO .STK-MED ONE Lab/Rad Data: Laboratory Result Diagrams 06/14/23 22:16 06/14/23 22:16 Laboratory Results 06/14/23 06/14/23 06/14/23 Range/Units 22:16 22:16 22:00 WBC 6.6 (4.0-10.5) x10^3/uL RBC 4.76 (4.1-5.4) x10^6/uL Hgb 12.5 (12.0-16.0) g/dL Hct 40.9 (35-47) % MCV 85.9 (78-100) fL MCH 26.3 (26-32) pg MCHC 30.6 L (32-36) g/dL RDW 14.6 H (11.5-14.0) % Plt Count 201 (150-450) x10^3/uL MPV 11.0 (7.5-11.0) fL Gran % 42.5 (36.0-66.0) % Immature Gran % (Auto) 0.3 (0.00-0.4) % Nucleat RBC Rel Count 0.0 (0.00-0.1) % Eos # (Auto) 0.11 (0-0.5) x10^3/uL Immature Gran # (Auto) 0.02 (0.00-0.03) x10^3u/L Absolute Lymphs (auto) 3.25 (1.0-4.6) x10^3/uL Absolute Monos (auto) 0.39 (0.0-1.3) x10^3/uL Absolute Nucleated RBC 0.00 (0.00-0.01) x10^3u/L Lymphocytes % 49.1 H (24.0-44.0) % Monocytes % 5.9 (0.0-12.0) % Eosinophils % 1.7 (0.00-5.0) % Basophils % 0.5 (0.0-0.4) % Absolute Granulocytes 2.82 (1.4-6.9) x10^3/uL Basophils # 0.03 (0-0.4) x10^3/uL Sodium 142 (137-145) mmol/L Potassium 3.6 (3.5-5.1) mmol/L Chloride 105 (98-107) mmol/L Carbon Dioxide 27 (22-30) mmol/L Anion Gap 14.1 (5-15) MEQ/L BUN 13 (7-17) mg/dL Creatinine 0.52 (0.52-1.04) mg/dL Estimated GFR > 60.0 ML/MIN Glucose 182 H (74-106) mg/dL Hemoglobin A1c 8.55 H (4.5-6.0) % Calcium 9.5 (8.4-10.2) mg/dL Total Bilirubin 0.40 (0.2-1.3) mg/dL AST 146 H (14-36) U/L ALT 136 H (0-35) U/L Alkaline Phosphatase 122 (38-126) U/L Serum Total Protein 7.2 (6.3-8.2) g/dL Albumin 4.4 (3.5-5.0) g/dL Urine Color (Yellow) Urine Appearance (Clear) Urine pH (4.6-8.0) Ur Specific [place] (1.005-1.030) Urine Protein (Negative) Urine Glucose (UA) (Negative) mg/dL Urine Ketones (Negative) Urine Blood (Negative) Urine Nitrite (Negative) Urine Bilirubin (Negative) Urine Urobilinogen (0.2) mg/dL Ur Leukocyte Esterase (Negative) U Hyaline Cast (Auto) (0-2) /LPF Urine Microscopic RBC (0-5) /HPF Urine Microscopic WBC (0-5) /HPF Ur Epithelial Cells (None Seen) /HPF Urine Bacteria (None Seen) /HPF Urine Culture Reflexed (NO) Urine HCG, Qual (NEGATIVE) 09/16/23 09/16/23 Range/Units 21:59 21:47 WBC (4.0-10.5) x10^3/uL RBC (4.1-5.4) x10^6/uL Hgb (12.0-16.0) g/dL Hct (35-47) % MCV (78-100) fL MCH (26-32) pg MCHC (32-36) g/dL RDW (11.5-14.0) % Plt Count (150-450) x10^3/uL MPV (7.5-11.0) fL Gran % (36.0-66.0) % Immature Gran % (Auto) (0.00-0.4) % Nucleat RBC Rel Count (0.00-0.1) % Eos # (Auto) (0-0.5) x10^3/uL Immature Gran # (Auto) (0.00-0.03) x10^3u/L Absolute Lymphs (auto) (1.0-4.6) x10^3/uL Absolute Monos (auto) (0.0-1.3) x10^3/uL Absolute Nucleated RBC (0.00-0.01) x10^3u/L Lymphocytes % (24.0-44.0) % Monocytes % (0.0-12.0) % Eosinophils % (0.00-5.0) % Basophils % (0.0-0.4) % Absolute Granulocytes (1.4-6.9) x10^3/uL Basophils # (0-0.4) x10^3/uL Sodium (137-145) mmol/L Potassium (3.5-5.1) mmol/L Chloride (98-107) mmol/L Carbon Dioxide (22-30) mmol/L Anion Gap (5-15) MEQ/L BUN (7-17) mg/dL Creatinine (0.52-1.04) mg/dL Estimated GFR ML/MIN Glucose (74-106) mg/dL Hemoglobin A1c (4.5-6.0) % Calcium (8.4-10.2) mg/dL Total Bilirubin (0.2-1.3) mg/dL AST (14-36) U/L ALT (0-35) U/L Alkaline Phosphatase (38-126) U/L Serum Total Protein (6.3-8.2) g/dL Albumin (3.5-5.0) g/dL Urine Color Yellow (Yellow) Urine Appearance Clear (Clear) Urine pH 5.5 (4.6-8.0) Ur Specific [place] >=1.030 A (1.005-1.030) Urine Protein Negative (Negative) Urine Glucose (UA) >=1000 A (Negative) mg/dL Urine Ketones Negative (Negative) Urine Blood Negative (Negative) Urine Nitrite Negative (Negative) Urine Bilirubin Negative (Negative) Urine Urobilinogen 1.0 A (0.2) mg/dL Ur Leukocyte Esterase Negative (Negative) U Hyaline Cast (Auto) NONE SEEN (0-2) /LPF Urine Microscopic RBC 0-2 (0-5) /HPF Urine Microscopic WBC 3-5 (0-5) /HPF Ur Epithelial Cells Moderate A (None Seen) /HPF Urine Bacteria Few A (None Seen) /HPF Urine Culture Reflexed NO (NO) Urine HCG, Qual NEGATIVE (NEGATIVE) - Progress Progress: improved, pain not gone completely Counseled pt/family regarding: lab results, diagnosis, need for follow-up Medical Desision Making - Risk of complications Low Risk: Low risk of morbidity from additional dx testing or treatment The pt has a mod risk of morbidity or mortality based on: Need for prescription drug management - Departure Departure Disposition: Home Clinical Impression: Urinary tract infection Qualifiers: Urinary tract infection type: site unspecified Hematuria presence: without hematuria Qualified Code(s): N39.0 - Urinary tract infection, site not specified Type 2 diabetes mellitus Qualifiers: Diabetes mellitus complication status: with hyperglycemia Condition: Stable Critical Care Time: No Referrals: MARCUS ANDERSON NP [Primary Care Provider] - Follow up/PCP as directed Instructions: Type 2 diabetes, Urinary Tract Infection, Adult (DC) Additional Instructions: Discharge/Care Plan ANTONI GUZMAN ROSEANNE was seen on 06/14/23 in the Emergency Room. The patient was counseled regarding Diagnosis,Lab results, Imaging studies, need for follow up and when to return to the Emergency Room. Prescriptions given: Discharge Note I have spoken with the patient and/or caregivers. I have explained the patient's condition, diagnosis and treatment plan based on the information available to me at this time. I have answered the patient's and/or caregiver's questions and addressed any concerns. The patient and/or caregivers have as good understanding of the patient's diagnosis, condition and treatment plan as can be expected at this point. The vital signs have been stable. The patient's condition is stable and appropriate for discharge from the emergency department. The patient will pursue further outpatient evaluation with the primary care physician or other designated or consulting physician as outlined in the discharge instructions. The patient and/or caregivers are agreeable to this plan of care and follow-up instructions have been explained in detail. The patient and/or caregivers have received these instruction. The patient/and or caregivers are aware that any significant change in condition or worsening of symptoms should prompt an immediate return to this or the closest emergency department or call 911. LOU GUZMANKAYLEE CRONIN was seen on 06/14/23 n the Emergency Room. At that time you were treated for an emergent condition, during your visit Laboratory, Radiology and/or other procedures may have been ordered. It is very important that you follow-up with your Primary Care Physician MARCUS ANDERSON within the next 24-48 hours to review your Emergency Room visit and the final results of testing that was ordered. Some test results such as Urine Cultures, Blood Cultures, and other cultures if ordered will not be finalized for 24-48 hours. If you do not have a Primary Care Provider please call the medical records department at [phone] ext [phone] to obtain a copy of your results or you may sign into our patient portal to obtain these results by visiting us @ [email or web address] and completing the following steps: 1. Click on the Patient Portal link 2. Click the Patient Self Enrollment Link to complete the enrollment form and entering your 3. Once the enrollment form is completed you will receive an email with a t emporary ID and password at the email address you provided. 4. Next choose a user name and password. Your user name must be at least 4 characters long and your password must be at least 4 characters long. 5. Choose a security question from the list and provide your answer to the question. If you already have signed into the Health Portal you may access your Health Care Information 21/04 by the following steps: 1. Login to our website @ [email or web address] 2. Enter your original user name and password. FAQS The [facility] Health Portal is an online tool that contains your Lab Results, Radiology Reports, Visit History, Discharge Instructions and Health Summary Lab and Radiology Results will not be available for 72 hours on the portal. The Portal is a secure site, passwords are encryted and URLs are re-written so they cannot be copied and pasted. You and authorized family members are the only ones who can access your Portal. Also there is a timeout feature that protects your information if you leave the Portal page open. If you have technical difficulty please use the Contact Us link on the page this will allow you to submit any questions you have regarding the Portal or you may contact the Medical Record Department at [phone] ext [phone]. URINARY TRACT INFECTION 1. You will need to drink plenty of fluids in order to keep your urinary system flushed. These fluids should mainly consist of water and juices. 2. Take medications as directed. You need to completely finish any antiobiotic prescription given. 3. Try to avoid coffee, tea, alcohol, and seasoned foods as they may cause bladder irritation. 4. If signs and symptoms persist after 3-4 days, you will need to follow up with your family physician. 5. Female Patients: A. Avoid intercourse for 3-4 days. B. Empty bladder before and after intercourse to reduce risk of re-infectio n. C. After emptying bladder, wipe from front to back to reduce the risk of re- infection. Prescriptions: Smz/Tmp Ds Tablet [Bactrim Ds Tablet] 1 udtab PO BID #20 tablet Metformin HCl Xr 500 mg [Glucophage XR 500 MG] 500 mg PO DAILY #30 tab
[2023-06-14 22:34] LABS: ALBUMIN 4.4 g/dL (3.5-5.0); ALKALINE PHOSPHATASE 122 U/L (38-126); ANION GAP 14.1 MEQ/L (5-15); BLOOD UREA NITROGEN 13 mg/dL (7-17); CHLORIDE 105 mmol/L (98-107); Calcium 9.5 mg/dL (8.4-10.2); Carbon Dioxide 27 mmol/L (22-30); Creatinine 1 0.52 mg/dL (0.52-1.04); EST GLOMERULAR FILTRATION RATE > 60.0 ML/MIN; Glucose 182 mg/dL (74-106); Potassium 3.6 mmol/L (3.5-5.1); SGOT/AST 146 U/L (14-36); SGPT/ALT 136 U/L (0-35); SODIUM 142 mmol/L (137-145); Total Protein 7.2 g/dL (6.3-8.2)
[2023-06-14] MEDS ORDERED: BACTRIM DS TABLET PO STA (22:41)
[2023-06-14] MEDS ORDERED: BACTRIM DS TABLET PO ONE (22:46)
[2023-06-14] MEDS ORDERED: Glucophage XR 500 MG PO ONE (23:10)
[2023-06-15 00:02] VITALS: BP 111/74; PULSE 76; RESP 17; O2SAT 97
== END 2023-06-15 00:07 | disposition home or self-care (01) ==
LOC: ED 21:38
DX: N39.0 Urinary tract infection, site not specified (principal); E11.65 Type 2 diabetes mellitus with hyperglycemia; M54.6 Pain in thoracic spine; R10.9 Unspecified abdominal pain; Z79.84 Long term (current) use of oral hypoglycemic drugs; Z79.899 Other long term (current) drug therapy
CPT/HCPCS: 36415; 80053; 81001; 81025; 83036; 85025; 99283; A9270-GY

== ENCOUNTER 2023-08-06 21:06 | Emergency (ER) | payer MEDICAID ==
[2023-08-06 21:25] VITALS: TEMP 97.7; O2SAT 96
[2023-08-06] MEDS ORDERED: BABY ASPIRIN 81 MG CHEW PO ONE (21:25)
--- NOTE | 2023-08-06 21:26 | ERPHSYRPT ---
- History of Present Illness Time Seen by Provider: 08/06/23 21:23 Historian: patient Exam Limitations: no limitations Physician History: Patient is a 22-year-old female presents to our ED with intermittent substernal chest pain that started at 11 AM. Patient currently asymptomatic. No associated nausea vomiting or diaphoresis. No trauma no fever. Patient has no significant cardiovascular risk factors at this time. Patient voices no other complaints or concerns at this time. Portions of this note were created with voice recognition technology. There may be grammatical, spelling, punctuation or sound alike errors Timing/Duration: today Activities at Onset: none Quality: aching Location: substernal Chest Pain Radiation: no radiation Severity of Pain-Max: moderate Severity of Pain-Current: none Modifying Factors: Improves With: nothing Associated Symptoms: denies symptoms Prior Chest Pain/Cardiac Workup: no prior chest pain Nitro Today/Relief: no nitro taken today Aspirin Treatment Today: no aspirin today Allergies/Adverse Reactions: peanut Allergy (Severe, Verified 08/06/23 21:16) Difficulty Swallowing Penicillins Allergy (Severe, Verified 08/06/23 21:16) Rash Home Medications: Buspirone HCl 5 mg [Buspar 5 mg] 5 mg PO BID 05/23/22 [History] Escitalopram Oxalate 10 mg PO DAILY 05/23/22 [History] Prazosin HCl [Minipress] 2 mg PO HS 05/23/22 [History] Ropinirole HCl 0.25 mg PO BID 03/20/23 [History] Trazodone HCl 50 mg [Desyrel 50 mg] 50 mg PO HS PRN 03/20/23 [History] Sitagliptin Phosphate [Januvia] 100 mg PO DAILY 08/06/23 [History] Hx Tetanus, Diphtheria Vaccination/Date Given: Yes Hx Influenza Vaccination/Date Given: No Hx Pneumococcal Vaccination/Date Given: No Travel Risk - Vaccine Status Have you recieved a Covid-19 vaccination: Yes Director Of Assessment: Unknown - Vaccination Dates Dates if Unknown: . - Review of Systems Constitutional: No Symptoms, No Fever, No Chills Eyes: No Symptoms Ears, Nose, & Throat: No Symptoms Respiratory: No Symptoms, No Cough, No Dyspnea Cardiac: No Symptoms, No Chest Pain, No Edema, No Syncope Abdominal/Gastrointestinal: No Symptoms, No Abdominal Pain, No Nausea, No Vomiting, No Diarrhea Genitourinary Symptoms: No Symptoms, No Dysuria Musculoskeletal: No Symptoms, No Back Pain, No Neck Pain Skin: No Symptoms, No Rash Neurological: No Symptoms, No Dizziness, No Focal Weakness, No Sensory Changes Psychological: No Symptoms Endocrine: No Symptoms Hematologic/Lymphatic: No Symptoms Immunological/Allergic: No Symptoms All Other Systems: Reviewed and Negative - Past Medical History Pertinent Past Medical History: Yes Neurological History: No Pertinent History ENT History: No Pertinent History Cardiac History: No Pertinent History Respiratory History: No Pertinent History Endocrine Medical History: No Pertinent History Musculoskeletal History: No Pertinent History GI Medical History: Gallbladder Disease History: No Pertinent History Psycho-Social History: Anxiety, Bipolar, Depression, Other Female Reproductive Disorders: Menstrual Problems, Other Other Medical History: ovarian cyst, MR, personality disorder - Past Surgical History Past Surgical History: Yes Neuro Surgical History: No Pertinent History Cardiac: No Pertinent History Respiratory: No Pertinent History Gastrointestinal: Cholecystectomy Genitourinary: No Pertinent History Musculoskeletal: No Pertinent History Female Surgical History: Other Other Surgical History: ovarian cyst removed surgically. throat stretched - Social History Smoking Status: Former smoker How long have you smoked: 3 yrs Exposure to second hand smoke: No Drug Use: none Patient Lives Alone: No Significant Family History: no pertinent family hx - Nursing Vital Signs Nursing Vital Signs: Initial Vital Signs Temperature 97.7 F 08/06/23 21:08 Pulse Rate 98 H 08/06/23 21:08 Respiratory Rate 22 08/06/23 21:08 Blood Pressure 122/73 08/06/23 21:08 O2 Sat by Pulse Oximetry 96 08/06/23 21:08 Pain Scale Pain Intensity 9 - Physical Exam General Appearance: no apparent distress, alert Eye Exam: PERRL/EOMI, eyes nml inspection Ears, Nose, Throat Exam: normal ENT inspection, TMs normal, pharynx normal, moist mucous membranes Neck Exam: normal inspection, non-tender, supple, full range of motion Respiratory Exam: normal breath sounds, lungs clear, airway intact, No respiratory distress Cardiovascular Exam: regular rate/rhythm, normal heart sounds, normal peripheral pulses Gastrointestinal/Abdomen Exam: soft, No tenderness, No mass Back Exam: normal inspection, No CVA tenderness, No vertebral tenderness Extremity Exam: normal inspection, normal range of motion Neurologic Exam: alert, oriented x 3, cooperative, normal mood/affect, sensation nml, No motor deficits Skin Exam: normal color, warm, dry SpO2 Interpretation: normal SpO2: 96 O2 Delivery: Room Air - Course Nursing assessment & vital signs reviewed: Yes EKG Interpreted by Me: RATE (95), Sinus Rhythm, NORMAL AXIS, NORMAL INTERVALS - Radiology Exams Chest X-ray Interpretation: Interpreted by me (Negative chest x-ray) Ordered Tests: Active Orders 24 hr Category Date Time Status Tissue Specialist STAT Care 08/06/23 21:24 Active EKG-ER Only STAT Care 08/06/23 21:24 Active Pulse Oximetry (ED) STAT Care 08/06/23 21:24 Active CHEST 1 VIEW (PORTABLE) Stat Exams 08/06/23 22:38 Taken CBC W DIFF Stat Lab 08/06/23 21:40 Completed CMP Stat Lab 08/06/23 21:40 Completed D-DIMER QUANTITATIVE Stat Lab 08/06/23 21:40 Completed NT PRO BNPII Stat Lab 08/06/23 21:40 Completed TROPONIN Q4H Lab 08/06/23 21:40 Completed TROPONIN Q4H Lab 08/07/23 01:30 Ordered TROPONIN Q4H Lab 08/07/23 05:30 Ordered Medication Summary Discontinued Medications Generic Name Dose Route Start Last Admin Trade Name Freq PRN Reason Stop Dose Admin Aspirin 324 mg 08/06/23 21:25 08/06/23 21:30 Aspirin 81 Mg Tab.Chew PO 08/06/23 21:26 324 mg STAT ONE Administration Aspirin Confirm 08/06/23 21:30 Aspirin 81 Mg Tab.Chew Administered 08/06/23 21:31 Dose 324 mg .ROUTE .[facility] Lab/Rad Data: Laboratory Result Diagrams 08/06/23 21:40 08/06/23 21:40 Laboratory Results 08/06/23 08/06/23 08/06/23 Range/Units 21:40 21:40 21:40 WBC (4.0-10.5) x10^3/uL RBC (4.1-5.4) x10^6/uL Hgb (12.0-16.0) g/dL Hct (35-47) % MCV (78-100) fL MCH (26-32) pg MCHC (32-36) g/dL RDW (11.5-14.0) % Plt Count (150-450) x10^3/uL MPV (7.5-11.0) fL Gran % (36.0-66.0) % Immature Gran % (Auto) (0.00-0.4) % Nucleat RBC Rel Count (0.00-0.1) % Eos # (Auto) (0-0.5) x10^3/uL Immature Gran # (Auto) (0.00-0.03) x10^3u/L Absolute Lymphs (auto) (1.0-4.6) x10^3/uL Absolute Monos (auto) (0.0-1.3) x10^3/uL Absolute Nucleated RBC (0.00-0.01) x10^3u/L Lymphocytes % (24.0-44.0) % Monocytes % (0.0-12.0) % Eosinophils % (0.00-5.0) % Basophils % (0.0-0.4) % Absolute Granulocytes (1.4-6.9) x10^3/uL Basophils # (0-0.4) x10^3/uL D-Dimer < 0.19 (0.0-0.50) mg/L Sodium (137-145) mmol/L Potassium (3.5-5.1) mmol/L Chloride (98-107) mmol/L Carbon Dioxide (22-30) mmol/L Anion Gap (5-15) MEQ/L BUN (7-17) mg/dL Creatinine (0.52-1.04) mg/dL Estimated GFR ML/MIN Glucose (74-106) mg/dL Calcium (8.4-10.2) mg/dL Total Bilirubin (0.2-1.3) mg/dL AST (14-36) U/L ALT (0-35) U/L Alkaline Phosphatase (38-126) U/L Troponin I < 0.012 (0.000-0.034) ng/mL NT-Pro-B Natriuret Pep < 20.0 (<300) pg/mL Serum Total Protein (6.3-8.2) g/dL Albumin (3.5-5.0) g/dL 08/06/23 08/06/23 Range/Units 21:40 21:40 WBC 8.2 (4.0-10.5) x10^3/uL RBC 4.34 (4.1-5.4) x10^6/uL Hgb 11.7 L (12.0-16.0) g/dL Hct 38.1 (35-47) % MCV 87.8 (78-100) fL MCH 27.0 (26-32) pg MCHC 30.7 L (32-36) g/dL RDW 15.4 H (11.5-14.0) % Plt Count 215 (150-450) x10^3/uL MPV 11.2 H (7.5-11.0) fL Gran % 56.4 (36.0-66.0) % Immature Gran % (Auto) 0.4 (0.00-0.4) % Nucleat RBC Rel Count 0.0 (0.00-0.1) % Eos # (Auto) 0.15 (0-0.5) x10^3/uL Immature Gran # (Auto) 0.03 (0.00-0.03) x10^3u/L Absolute Lymphs (auto) 2.87 (1.0-4.6) x10^3/uL Absolute Monos (auto) 0.50 (0.0-1.3) x10^3/uL Absolute Nucleated RBC 0.00 (0.00-0.01) x10^3u/L Lymphocytes % 34.9 (24.0-44.0) % Monocytes % 6.1 (0.0-12.0) % Eosinophils % 1.8 (0.00-5.0) % Basophils % 0.4 (0.0-0.4) % Absolute Granulocytes 4.64 (1.4-6.9) x10^3/uL Basophils # 0.03 (0-0.4) x10^3/uL D-Dimer (0.0-0.50) mg/L Sodium 140 (137-145) mmol/L Potassium 4.1 (3.5-5.1) mmol/L Chloride 104 (98-107) mmol/L Carbon Dioxide 25 (22-30) mmol/L Anion Gap 14.7 (5-15) MEQ/L BUN 14 (7-17) mg/dL Creatinine 0.58 (0.52-1.04) mg/dL Estimated GFR 132.0 ML/MIN Glucose 250 H (74-106) mg/dL Calcium 9.1 (8.4-10.2) mg/dL Total Bilirubin 0.20 (0.2-1.3) mg/dL AST 47 H (14-36) U/L ALT 56 H (0-35) U/L Alkaline Phosphatase 112 (38-126) U/L Troponin I (0.000-0.034) ng/mL NT-Pro-B Natriuret Pep (<300) pg/mL Serum Total Protein 6.8 (6.3-8.2) g/dL Albumin 3.9 (3.5-5.0) g/dL - Progress Progress: improved Air Movement: good Progress Note: Patient is a 22-year-old female presents to our ED for evaluation of intermittent chest pain that started at 11 AM. Patient has not had any chest pain for the past several hours. Patient was asymptomatic upon arrival. Patient has no significant cardiovascular risk factors. EKG was normal sinus rhythm. Troponin negative. Chest x-ray within normal limits. CBC CMP nonremarkable. D-dimer negative. BNP within normal limits. Patient received aspirin upon arrival to our ED. Patient reassessed. She remains asymptomatic. Vital stable. Patient states she is ready for discharge. Significant other at bedside. They voiced no other complaints or concerns at this time. Portions of this note were created with voice recognition technology. There may be grammatical, spelling, punctuation or sound alike errors Complexity of problems addressed is moderate acute No critical care time Complexity of data reviewed and analyzed is moderate. Test ordered test reviewed. Dr. Jordan upon review of the EKG and chest x-ray. Results analyzed and clinically correlated with history and physical examination. Risk of complication and or risk of morbidity/mortality of patient management is low. Patient will be discharged home. No prescriptions. Vital stable. Time spent to discharge patient is approximately 10 minutes. Plan of care established for shared decision making. No social determinants of health present to impede follow-up. Portions of this note were created with voice recognition technology. There may be grammatical, spelling, punctuation or sound alike errors 08/06/23 22:51 Blood Culture(s) Obtained: No Antibiotics given: No Counseled pt/family regarding: lab results, diagnosis, need for follow-up, rad results - Departure Departure Disposition: Home Clinical Impression: Chest pain Condition: Stable Critical Care Time: No Referrals: MARCUS ANDERSON NP [Primary Care Provider] - Follow up/PCP as directed Additional Instructions: Please follow-up with your family doctor within 48 hours for reevaluation. Discharge/Care Plan ANTONI GUZMAN was seen on 08/06/23 in the Emergency Room. The patient was counseled regarding Diagnosis,Lab results, Imaging studies, need for follow up and when to return to the Emergency Room. Prescriptions given: Discharge Note I have spoken with the patient and/or caregivers. I have explained the patient's condition, diagnosis and treatment plan based on the information available to me at this time. I have answered the patient's and/or caregiver's questions and addressed any concerns. The patient and/or caregivers have as good understanding of the patient's diagnosis, condition and treatment plan as can be expected at this point. The vital signs have been stable. The patient's condition is stable and appropriate for discharge from the emergency department. The patient will pursue further outpatient evaluation with the primary care physician or other designated or consulting physician as outlined in the discharge instructions. The patient and/or caregivers are agreeable to this plan of care and follow-up instructions have been explained in detail. The patient and/or caregivers have received these instruction. The patient/and or caregivers are aware that any significant change in condition or worsening of symptoms should prompt an immediate return to this or the closest emergency department or call 911.
[2023-08-06] MEDS ORDERED: BABY ASPIRIN 81 MG CHEW ONE (21:30)
[2023-08-06 21:43] LABS: Absolute Neutrophil Ct (ANC) 4.64 x10^3/uL (1.4-6.9); BASOPHIL % 0.4 % (0.0-0.4); Basophil (Absolute #) 0.03 x10^3/uL (0-0.4); Eosinophil % 1.8 % (0.00-5.0); Eosinophil (Absolute #) 0.15 x10^3/uL (0-0.5); Hematocrit 38.1 % (35-47); Hemoglobin 11.7 g/dL (12.0-16.0); IMMATURE GRAN # 0.03 x10^3u/L (0.00-0.03); IMMATURE GRAN % 0.4 % (0.00-0.4); Lymphocyte (Absolute #) 2.87 x10^3/uL (1.0-4.6); Lymphocytes % 34.9 % (24.0-44.0); Mean Cell Volume 87.8 fL (78-100); Mean Corpuscular Hgb Concent. 30.7 g/dL (32-36); Mean Platelet Volume 11.2 fL (7.5-11.0); Monocytes % 6.1 % (0.0-12.0); Neutrophil % 56.4 % (36.0-66.0); Platelet Count 215 x10^3/uL (150-450); Red Blood Count 4.34 x10^6/uL (4.1-5.4); Red Cell Distribution Width 15.4 % (11.5-14.0); White Blood Count 8.2 x10^3/uL (4.0-10.5)
[2023-08-06 21:59] LABS: ALBUMIN 3.9 g/dL (3.5-5.0); ANION GAP 14.7 MEQ/L (5-15); BILIRUBIN,TOTAL 0.2 mg/dL (0.2-1.3); Calcium 9.1 mg/dL (8.4-10.2); Creatinine 1 0.58 mg/dL (0.52-1.04); Potassium 4.1 mmol/L (3.5-5.1); Total Protein 6.8 g/dL (6.3-8.2)
[2023-08-06 22:24] VITALS: BP 109/69; PULSE 93; RESP 19
--- NOTE | 2023-08-07 08:38 | XRAY ---
Indication: Chest pain. Comparison: July 09, 2022 Portable chest again demonstrates normal heart, lungs, and bony thorax.
== END 2023-08-06 22:58 | disposition home or self-care (01) ==
LOC: ED 21:06
DX: R07.9 Chest pain, unspecified (principal); Z79.84 Long term (current) use of oral hypoglycemic drugs; Z79.899 Other long term (current) drug therapy
CPT/HCPCS: 36415; 71045; 80053; 83880; 84484; 85025; 85379; 93005; 93041; 94760; 99284; A9270-GY

== ENCOUNTER 2023-10-13 18:20 | Emergency (ER) | payer MEDICAID ==
--- NOTE | 2023-10-13 19:13 | ERPHSYRPT ---
- History of Present Illness Time Seen by Provider: 10/13/23 19:13 Source: patient Exam Limitations: no limitations Patient Subjective Stated Complaint: Pt states "I have a sore throat." Triage Nursing Assessment: Pt presented alert and oriented X 3, skin pwd. Pt ambulates with an upright steady gait, able to speak in clear full sentences. Pt resting comfortably on the bed. Physician History: This is a 22-year-old white female patient who presents to the emergency department with complaints of sore throat that began this morning. She denies earaches. She denies chest pain. She denies shortness of breath. She has no abdominal pain. She has had no nausea vomiting or diarrhea symptoms. She has no known exposure to individuals with similar symptoms or who have been diagnosed with flu of any type. Timing/Duration: today Cough Quality/Degree: mild, dry cough Possible Cause: occasional episodes Modifying Factors: Improves With: nothing Associated Symptoms: sore throat, No fever, No chills, No chest pain/soreness, No shortness of breath Allergies/Adverse Reactions: peanut Allergy (Severe, Verified 08/06/23 21:16) Difficulty Swallowing Penicillins Allergy (Severe, Verified 08/06/23 21:16) Rash Home Medications: Buspirone HCl 5 mg [Buspar 5 mg] 5 mg PO BID 05/23/22 [History] Escitalopram Oxalate 10 mg PO DAILY 05/23/22 [History] Prazosin HCl [Minipress] 2 mg PO HS 05/23/22 [History] Ropinirole HCl 0.25 mg PO BID 03/20/23 [History] Sitagliptin Phosphate [Januvia] 100 mg PO DAILY 08/06/23 [History] Hx Tetanus, Diphtheria Vaccination/Date Given: Yes Hx Influenza Vaccination/Date Given: No Hx Pneumococcal Vaccination/Date Given: No Immunizations Up to Date: Yes Travel Risk - International Travel Have you traveled outside of the country in past 3 weeks: No - Coronavirus Screening Are you exhibiting any of the following symptoms?: No Close contact with a COVID-19 positive Pt in past 14-21 Days: No - Vaccine Status Have you recieved a Covid-19 vaccination: Yes Catering Service Manager: Unknown - Vaccination Dates Dates if Unknown: . - Review of Systems Constitutional: No Symptoms Eyes: No Symptoms Ears, Nose, & Throat: Throat Pain Respiratory: No Symptoms Cardiac: No Symptoms Abdominal/Gastrointestinal: No Symptoms Genitourinary Symptoms: No Symptoms Musculoskeletal: No Symptoms Skin: No Symptoms Neurological: No Symptoms Psychological: No Symptoms Endocrine: No Symptoms Hematologic/Lymphatic: No Symptoms Immunological/Allergic: No Symptoms All Other Systems: Reviewed and Negative - Past Medical History Pertinent Past Medical History: Yes Neurological History: No Pertinent History ENT History: No Pertinent History Cardiac History: No Pertinent History Respiratory History: No Pertinent History Endocrine Medical History: No Pertinent History Musculoskeletal History: No Pertinent History GI Medical History: Gallbladder Disease History: No Pertinent History Psycho-Social History: Anxiety, Bipolar, Depression, Other Female Reproductive Disorders: Menstrual Problems, Other Other Medical History: ovarian cyst, MR, personality disorder - Past Surgical History Past Surgical History: Yes Neuro Surgical History: No Pertinent History Cardiac: No Pertinent History Respiratory: No Pertinent History Gastrointestinal: Cholecystectomy Genitourinary: No Pertinent History Musculoskeletal: No Pertinent History Female Surgical History: Other Other Surgical History: ovarian cyst removed surgically. throat stretched - Social History Smoking Status: Former smoker How long have you smoked: 3 yrs Exposure to second hand smoke: No Drug Use: none Patient Lives Alone: No Significant Family History: no pertinent family hx - Female History Hx Last Menstrual Period: 09/27/2023 Hx Now: No - Nursing Vital Signs Nursing Vital Signs: Initial Vital Signs Temperature 98.1 F 10/13/23 19:01 Pulse Rate 91 H 10/13/23 19:01 Respiratory Rate 20 10/13/23 19:01 Blood Pressure 133/71 10/13/23 19:01 O2 Sat by Pulse Oximetry 97 10/13/23 19:01 Pain Scale Pain Intensity 8 - Physical Exam General Appearance: no apparent distress, alert, anxiety Eye Exam: PERRL/EOMI, eyes nml inspection Ears, Nose, Throat Exam: moist mucous membranes, pharyngeal erythema Neck Exam: normal inspection, non-tender, supple, full range of motion Respiratory Exam: normal breath sounds, lungs clear, airway intact, No chest tenderness, No respiratory distress Cardiovascular Exam: regular rate/rhythm, normal heart sounds, normal peripheral pulses Gastrointestinal/Abdomen Exam: soft, normal bowel sounds, No tenderness Pelvic Exam: not done Rectal Exam: not done Back Exam: normal inspection, normal range of motion, No CVA tenderness, No vertebral tenderness Extremity Exam: normal inspection, normal range of motion, pelvis stable Neurologic Exam: alert, oriented x 3, cooperative, creative manager II-XII nml as tested, normal mood/affect, nml cerebellar function, nml station & gait, sensation nml Skin Exam: normal color, warm, dry Lymphatic Exam: No adenopathy SpO2 Interpretation: normal SpO2: 97 O2 Delivery: Room Air - Course Nursing assessment & vital signs reviewed: Yes Lab/Rad Data: Laboratory Results 10/13/23 Range/Units 19:10 Influenza Type A Ag NEGATIVE (NEGATIVE) Influenza Type B Ag NEGATIVE (NEGATIVE) RSV (PCR) POSITIVE (NEGATIVE) SARS-CoV-2 (PCR) NEGATIVE (NEGATIVE) Group A Strep Antibody NOT DETECTED (NEGATIVE) - Progress Progress: unchanged Air Movement: good Progress Note: 10/13/23 19:38 This patient's medical issue is 1 of low complexity. The level complex in the workup performed is based on review of the patient's past medical history, review of the patient's medication list, review of the patient's drug allergy list, history present illness and physical findings on examination. The workup in this patient includes viral swabs and group A strep swab. 10/13/23 20:02 I interpreted the laboratory data results in this patient. The patient is positive for RSV bronchitis. No other acute or emergent medical issues based on the labs present. Blood Culture(s) Obtained: No Antibiotics given: No Counseled pt/family regarding: lab results, diagnosis Medical Desision Making - Independent Historian Additional History obtained from: Relative/friend - Diagnostic Testing Diagnostic test were ordered, analyzed, and reviewed by me: Yes - Risk of complications The pt has a mod risk of morbidity or mortality based on: Need for prescription drug management - Departure Departure Disposition: Home Clinical Impression: RSV bronchitis Condition: Stable Critical Care Time: No Referrals: MARCUS ANDERSON NP [Primary Care Provider] - Follow up/PCP as directed Additional Instructions: Drink plenty of fluids. Use Tylenol and ibuprofen for pain control. Take your steroids as prescribed. Follow-up with your primary care provider tomorrow, 10/14/2023, by phone to make a follow-up appointment in the next 3 to 5 days.
[2023-10-13 19:35] VITALS: TEMP 98.1
[2023-10-13 19:43] LABS: Group A Strep NOT DETECTED (NEGATIVE)
[2023-10-13 19:55] LABS: INFLUENZA A NEGATIVE (NEGATIVE); INFLUENZA B NEGATIVE (NEGATIVE); SARS-CoV-2 Xpert Express NEGATIVE (NEGATIVE)
[2023-10-13 19:58] LABS: RESPIRATORY SYNCTIAL VIRUS POSITIVE (NEGATIVE)
[2023-10-13] MEDS ORDERED: DELTASONE 20 MG PO ONE (20:01)
[2023-10-13] MEDS ORDERED: DELTASONE 20 MG ONE (20:06)
[2023-10-13 20:14] VITALS: BP 115/68; PULSE 78; RESP 16; O2SAT 99
== END 2023-10-13 20:20 | disposition home or self-care (01) ==
LOC: ED 18:20
DX: J20.5 Acute bronchitis due to respiratory syncytial virus (principal); Z79.84 Long term (current) use of oral hypoglycemic drugs; Z79.899 Other long term (current) drug therapy
CPT/HCPCS: 0241U; 87651; 99282; A9270-GY

== ENCOUNTER 2023-12-26 06:22 | Emergency (ER) | payer MEDICAID ==
[2023-12-26 06:52] VITALS: TEMP 96.9
[2023-12-26 06:58] LABS: Absolute Neutrophil Ct (ANC) 5.08 x10^3/uL (1.4-6.9); BASOPHIL % 0.4 % (0.0-0.4); Basophil (Absolute #) 0.04 x10^3/uL (0-0.4); Eosinophil % 1.8 % (0.00-5.0); Eosinophil (Absolute #) 0.18 x10^3/uL (0-0.5); Hematocrit 40.7 % (35-47); Hemoglobin 12.5 g/dL (12.0-16.0); IMMATURE GRAN # 0.03 x10^3u/L (0.00-0.03); IMMATURE GRAN % 0.3 % (0.00-0.4); Lymphocytes % 39.1 % (24.0-44.0); Mean Cell Volume 87.7 fL (78-100); Mean Corpuscular Hemoglobin 26.9 pg (26-32); Mean Corpuscular Hgb Concent. 30.7 g/dL (32-36); Mean Platelet Volume 11.7 fL (7.5-11.0); Monocytes % 6.2 % (0.0-12.0); Neutrophil % 52.2 % (36.0-66.0); Platelet Count 236 x10^3/uL (150-450); Red Blood Count 4.64 x10^6/uL (4.1-5.4); Red Cell Distribution Width 15.2 % (11.5-14.0); White Blood Count 9.7 x10^3/uL (4.0-10.5)
[2023-12-26 07:03] LABS: HCG URINE TEST NEGATIVE (NEGATIVE)
[2023-12-26 07:11] LABS: ALBUMIN 4.1 g/dL (3.5-5.0); ANION GAP 12.8 MEQ/L (5-15); BILIRUBIN,TOTAL 0.2 mg/dL (0.2-1.3); Calcium 9.5 mg/dL (8.4-10.2); Creatinine 1 0.49 mg/dL (0.52-1.04); EST GLOMERULAR FILTRATION RATE 136.6 ML/MIN; Potassium 3.9 mmol/L (3.5-5.1); Total Protein 7.3 g/dL (6.3-8.2)
[2023-12-26 07:16] LABS: Amphetamine,Urine NEGATIVE (NEGATIVE); Barbiturate,Urine NEGATIVE (NEGATIVE); Benzodiazepine,Urine NEGATIVE (NEGATIVE); Cocaine,Urine NEGATIVE (NEGATIVE); Methadone,Urine NEGATIVE (NEGATIVE); Opiate,Urine NEGATIVE (NEGATIVE); PCP,Urine NEGATIVE (NEGATIVE); THC,Urine NEGATIVE (NEGATIVE)
[2023-12-26 07:20] LABS: Appearance Clear (Clear); Bilirubin Negative (Negative); Blood Negative (Negative); Glucose, Urine >=1000 mg/dL (Negative); Ketones Negative (Negative); Leukocyte Esterase Small (Negative); Nitrite Negative (Negative); Protein,Urine Dip Negative (Negative); RBC 0-2 /HPF (0-5); Specific Gravity 1.015 (1.005-1.030); Urobilinogen 0.2 mg/dL (0.2); WBC 0-2 /HPF (0-5)
[2023-12-26 07:21] LABS: ADD URINE CULTURE? NO (NO); Bacteria Rare /HPF (None Seen); Epithelial Cells Rare /HPF (None Seen)
--- NOTE | 2023-12-26 07:51 | ERPHSYRPT ---
- History of Present Illness Time Seen by Provider: 12/26/23 06:55 Source: patient, family Exam Limitations: no limitations Patient Subjective Stated Complaint: Hyperglycemia- BS 244 Triage Nursing Assessment: Patient ambulated back to ED and transferred self to bed. Patient A+O X3. Patient's skin pink, warm and dry. Patient complains of Hyperglycemia for the past 1.5 hours. Patient states she felt like she was going to pass out. Patient complains of chest pain 06/08. BS noted to be 199. Physician History: Patient is a 23-year-old white female frequent visitor to the ER for multiple problems who presents with a complaint of chest pain which grew more severe over the course of the morning. Apparently according to friend or family member she had an elevated blood sugar of 242 for which she takes Januvia and she had been passing out on and off all night long the episodes last about 5 minutes she has no loss of bladder or bowel control.Review of previous visits indicates multiple complaints. Witnessed: by family, by friend Prior Episodes: multiple episodes today Timing/Duration: today Precipitating Factors: unknown Context: other (Lying down) Loss of Consciousness: prolonged (minutes) (Apparently she had multiple episodes lasting approximately 5 minutes at a time where she would be unresponsive until she was shaken for a while then her eyelids were fluttering she would come open and be normal immediately.) Charcter of event(s): became unresponsive Allergies/Adverse Reactions: peanut Allergy (Severe, Verified 12/26/23 06:27) Difficulty Swallowing Penicillins Allergy (Severe, Verified 12/26/23 06:27) Rash Home Medications: Buspirone HCl 5 mg [Buspar 5 mg] 5 mg PO BID 05/23/22 [History] Escitalopram Oxalate 10 mg PO DAILY 05/23/22 [History] Prazosin HCl [Minipress] 2 mg PO HS 05/23/22 [History] Ropinirole HCl 0.25 mg PO BID 03/20/23 [History] Sitagliptin Phosphate [Januvia] 100 mg PO DAILY 08/06/23 [History] Hx Tetanus, Diphtheria Vaccination/Date Given: Yes Hx Influenza Vaccination/Date Given: No Hx Pneumococcal Vaccination/Date Given: No Immunizations Up to Date: Yes Travel Risk - International Travel Have you traveled outside of the country in past 3 weeks: No - Emerging Infectious Disease Are you exhibiting symptoms associated with any current EIDs: No - Past Medical History Pertinent Past Medical History: Yes Neurological History: No Pertinent History ENT History: No Pertinent History Cardiac History: No Pertinent History Respiratory History: No Pertinent History Endocrine Medical History: No Pertinent History Musculoskeletal History: No Pertinent History GI Medical History: Gallbladder Disease History: No Pertinent History Psycho-Social History: Anxiety, Bipolar, Depression, Other Female Reproductive Disorders: Menstrual Problems, Other Other Medical History: ovarian cyst, MR, personality disorder - Past Surgical History Past Surgical History: Yes Neuro Surgical History: No Pertinent History Cardiac: No Pertinent History Respiratory: No Pertinent History Gastrointestinal: Cholecystectomy Genitourinary: No Pertinent History Musculoskeletal: No Pertinent History Female Surgical History: Other Other Surgical History: ovarian cyst removed surgically. throat stretched Significant Family History: no pertinent family hx - Female History Hx Last Menstrual Period: last month Hx Now: No - Social History Smoking Status: Former smoker How long have you smoked: 3 yrs Exposure to second hand smoke: No Drug Use: marijuana Patient Lives Alone: No Physical Exam - Nursing Vital Signs Nursing Vital Signs: Initial Vital Signs Temperature 96.9 F 12/26/23 06:42 Pulse Rate 90 12/26/23 06:42 Respiratory Rate 19 12/26/23 06:42 Blood Pressure 126/78 12/26/23 06:42 O2 Sat by Pulse Oximetry 96 12/26/23 06:42 Pain Scale Pain Intensity 7 - Tay Coma Scale Best Eye Response (Tay): (4) open spontaneously Best Verbal Response (Logan): (5) oriented Best Motor Response (Logan): (6) obeys commands Tay Total: 15 - Physical Exam General Appearance: no apparent distress, alert Eye Exam: bilateral eye: PERRL, EOMI Ears, Nose, Throat Exam: normal ENT inspection, pharynx normal, moist mucous membranes Neck Exam: normal inspection, non-tender, supple, full range of motion Respiratory: normal breath sounds, lungs clear, No chest tenderness, No respiratory distress Cardiovascular: regular rate/rhythm, capillary refill <2 sec, No murmur, No pulse deficit Gastrointestinal: soft, No tenderness, No distention, No mass Back Exam: normal inspection, normal range of motion, No CVA tenderness, No vertebral tenderness Extremity Exam: normal inspection, normal range of motion, pelvis stable, No tenderness Mental Status: alert, oriented x 3, 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 Exam: normal speech, PERRL, No facial droop Coordination/Gait: normal finger to nose Motor/Sensory: no motor deficit, no sensory deficit, no pronator drift Skin Exam: normal color, warm, dry, No rash SpO2 Interpretation: normal SpO2: 96 O2 Delivery: Room Air - Course Nursing assessment & vital signs reviewed: Yes EKG Interpreted by Me: RATE (89), Sinus Rhythm, NORMAL AXIS, NORMAL INTERVALS, NORMAL QRS, NORMAL ST-T - CT Exams Head CT Interpretation: Negative Ordered Tests: Active Orders 24 hr Category Date Time Status Clean Catch Urine Specimen STAT Care 12/26/23 06:41 Active EKG-ER Only STAT Care 12/26/23 06:41 Active POCT Glucose Check STAT Care 12/26/23 08:47 Active HEAD WITHOUT CONTRAST [CT] Stat Exams 12/26/23 07:01 Completed CBC W DIFF Stat Lab 12/26/23 06:53 Completed CMP Stat Lab 12/26/23 06:53 Completed HCG QUALITATIVE, URINE Stat Lab 12/26/23 06:52 Completed POCT GLUCOSE Stat Lab 12/26/23 06:38 Completed POCT GLUCOSE Stat Lab 12/26/23 08:51 Completed TROPONIN Q4H Lab 12/26/23 07:00 Completed TROPONIN Q4H Lab 12/26/23 11:00 Ordered TROPONIN Q4H Lab 12/26/23 15:00 Ordered TROPONIN Q4H Lab 12/26/23 19:00 Ordered TROPONIN Q4H Lab 12/26/23 23:00 Ordered UA W/RFX UR CULTURE Stat Lab 12/26/23 06:52 Completed Urine Triage Profile Stat Lab 12/26/23 06:59 Completed Medication Summary Discontinued Medications Generic Name Dose Route Start Last Admin Trade Name Rohini PRN Reason Stop Dose Admin Insulin Human Regular 5 unit 12/26/23 07:02 12/26/23 08:00 Insulin Regular, Human 1 Unit SQ 12/26/23 07:03 5 unit STAT ONE Administration Insulin Human Regular Confirm 12/26/23 07:58 Insulin Regular, Human 1 Unit Administered 12/26/23 07:59 Dose 5 unit .ROUTE .GET IT [employer] ONE Lab/Rad Data: Laboratory Result Diagrams 12/26/23 06:53 12/26/23 06:53 Laboratory Results 12/26/23 12/26/23 12/26/23 Range/Units 08:51 07:00 06:59 WBC (4.0-10.5) x10^3/uL RBC (4.1-5.4) x10^6/uL Hgb (12.0-16.0) g/dL Hct (35-47) % MCV (78-100) fL MCH (26-32) pg MCHC (32-36) g/dL RDW (11.5-14.0) % Plt Count (150-450) x10^3/uL MPV (7.5-11.0) fL Gran % (36.0-66.0) % Immature Gran % (Auto) (0.00-0.4) % Nucleat RBC Rel Count (0.00-0.1) % Eos # (Auto) (0-0.5) x10^3/uL Immature Gran # (Auto) (0.00-0.03) x10^3u/L Absolute Lymphs (auto) (1.0-4.6) x10^3/uL Absolute Monos (auto) (0.0-1.3) x10^3/uL Absolute Nucleated RBC (0.00-0.01) x10^3u/L Lymphocytes % (24.0-44.0) % Monocytes % (0.0-12.0) % Eosinophils % (0.00-5.0) % Basophils % (0.0-0.4) % Absolute Granulocytes (1.4-6.9) x10^3/uL Basophils # (0-0.4) x10^3/uL Sodium (135-145) mmol/L Potassium (3.5-5.1) mmol/L Chloride (98-107) mmol/L Carbon Dioxide (22-30) mmol/L Anion Gap (5-15) MEQ/L BUN (7-17) mg/dL Creatinine (0.52-1.04) mg/dL Estimated GFR ML/MIN Glucose (74-106) mg/dL POC Glucometer 148 H (74 to 106) mg/dL Calcium (8.4-10.2) mg/dL Total Bilirubin (0.2-1.3) mg/dL AST (14-36) U/L ALT (0-35) U/L Alkaline Phosphatase (38-126) U/L Troponin I < 0.012 (0.000-0.034) ng/mL Serum Total Protein (6.3-8.2) g/dL Albumin (3.5-5.0) g/dL Urine Color (Yellow) Urine Appearance (Clear) Urine pH (4.6-8.0) Ur Specific [place] (1.005-1.030) Urine Protein (Negative) Urine Glucose (UA) (Negative) mg/dL Urine Ketones (Negative) Urine Blood (Negative) Urine Nitrite (Negative) Urine Bilirubin (Negative) Urine Urobilinogen (0.2) mg/dL Ur Leukocyte Esterase (Negative) Urine Microscopic RBC (0-5) /HPF Urine Microscopic WBC (0-5) /HPF Ur Epithelial Cells (None Seen) /HPF Urine Bacteria (None Seen) /HPF Urine Culture Reflexed (NO) Urine HCG, Qual (NEGATIVE) Urine Opiates Level NEGATIVE (NEGATIVE) Ur Methadone NEGATIVE (NEGATIVE) Urine Barbiturates NEGATIVE (NEGATIVE) Ur Phencyclidine (PCP) NEGATIVE (NEGATIVE) Urine Amphetamine NEGATIVE (NEGATIVE) U Benzodiazepine Level NEGATIVE (NEGATIVE) Urine Cocaine NEGATIVE (NEGATIVE) Urine Marijuana (THC) NEGATIVE (NEGATIVE) 12/26/23 12/26/23 12/26/23 Range/Units 06:53 06:53 06:52 WBC 9.7 (4.0-10.5) x10^3/uL RBC 4.64 (4.1-5.4) x10^6/uL Hgb 12.5 (12.0-16.0) g/dL Hct 40.7 (35-47) % MCV 87.7 (78-100) fL MCH 26.9 (26-32) pg MCHC 30.7 L (32-36) g/dL RDW 15.2 H (11.5-14.0) % Plt Count 236 (150-450) x10^3/uL MPV 11.7 H (7.5-11.0) fL Gran % 52.2 (36.0-66.0) % Immature Gran % (Auto) 0.3 (0.00-0.4) % Nucleat RBC Rel Count 0.0 (0.00-0.1) % Eos # (Auto) 0.18 (0-0.5) x10^3/uL Immature Gran # (Auto) 0.03 (0.00-0.03) x10^3u/L Absolute Lymphs (auto) 3.80 (1.0-4.6) x10^3/uL Absolute Monos (auto) 0.60 (0.0-1.3) x10^3/uL Absolute Nucleated RBC 0.00 (0.00-0.01) x10^3u/L Lymphocytes % 39.1 (24.0-44.0) % Monocytes % 6.2 (0.0-12.0) % Eosinophils % 1.8 (0.00-5.0) % Basophils % 0.4 (0.0-0.4) % Absolute Granulocytes 5.08 (1.4-6.9) x10^3/uL Basophils # 0.04 (0-0.4) x10^3/uL Sodium 140 (135-145) mmol/L Potassium 3.9 (3.5-5.1) mmol/L Chloride 108 H (98-107) mmol/L Carbon Dioxide 23 (22-30) mmol/L Anion Gap 12.8 (5-15) MEQ/L BUN 13 (7-17) mg/dL Creatinine 0.49 L (0.52-1.04) mg/dL Estimated GFR 136.6 ML/MIN Glucose 196 H (74-106) mg/dL POC Glucometer (74 to 106) mg/dL Calcium 9.5 (8.4-10.2) mg/dL Total Bilirubin 0.20 (0.2-1.3) mg/dL AST 35 (14-36) U/L ALT 49 H (0-35) U/L Alkaline Phosphatase 109 (38-126) U/L Troponin I (0.000-0.034) ng/mL Serum Total Protein 7.3 (6.3-8.2) g/dL Albumin 4.1 (3.5-5.0) g/dL Urine Color (Yellow) Urine Appearance (Clear) Urine pH (4.6-8.0) Ur Specific [place] (1.005-1.030) Urine Protein (Negative) Urine Glucose (UA) (Negative) mg/dL Urine Ketones (Negative) Urine Blood (Negative) Urine Nitrite (Negative) Urine Bilirubin (Negative) Urine Urobilinogen (0.2) mg/dL Ur Leukocyte Esterase (Negative) Urine Microscopic RBC (0-5) /HPF Urine Microscopic WBC (0-5) /HPF Ur Epithelial Cells (None Seen) /HPF Urine Bacteria (None Seen) /HPF Urine Culture Reflexed (NO) Urine HCG, Qual NEGATIVE (NEGATIVE) Urine Opiates Level (NEGATIVE) Ur Methadone (NEGATIVE) Urine Barbiturates (NEGATIVE) Ur Phencyclidine (PCP) (NEGATIVE) Urine Amphetamine (NEGATIVE) U Benzodiazepine Level (NEGATIVE) Urine Cocaine (NEGATIVE) Urine Marijuana (THC) (NEGATIVE) 12/26/23 12/26/23 Range/Units 06:52 06:38 WBC (4.0-10.5) x10^3/uL RBC (4.1-5.4) x10^6/uL Hgb (12.0-16.0) g/dL Hct (35-47) % MCV (78-100) fL MCH (26-32) pg MCHC (32-36) g/dL RDW (11.5-14.0) % Plt Count (150-450) x10^3/uL MPV (7.5-11.0) fL Gran % (36.0-66.0) % Immature Gran % (Auto) (0.00-0.4) % Nucleat RBC Rel Count (0.00-0.1) % Eos # (Auto) (0-0.5) x10^3/uL Immature Gran # (Auto) (0.00-0.03) x10^3u/L Absolute Lymphs (auto) (1.0-4.6) x10^3/uL Absolute Monos (auto) (0.0-1.3) x10^3/uL Absolute Nucleated RBC (0.00-0.01) x10^3u/L Lymphocytes % (24.0-44.0) % Monocytes % (0.0-12.0) % Eosinophils % (0.00-5.0) % Basophils % (0.0-0.4) % Absolute Granulocytes (1.4-6.9) x10^3/uL Basophils # (0-0.4) x10^3/uL Sodium (135-145) mmol/L Potassium (3.5-5.1) mmol/L Chloride (98-107) mmol/L Carbon Dioxide (22-30) mmol/L Anion Gap (5-15) MEQ/L BUN (7-17) mg/dL Creatinine (0.52-1.04) mg/dL Estimated GFR ML/MIN Glucose (74-106) mg/dL POC Glucometer 199 H (74 to 106) mg/dL Calcium (8.4-10.2) mg/dL Total Bilirubin (0.2-1.3) mg/dL AST (14-36) U/L ALT (0-35) U/L Alkaline Phosphatase (38-126) U/L Troponin I (0.000-0.034) ng/mL Serum Total Protein (6.3-8.2) g/dL Albumin (3.5-5.0) g/dL Urine Color Yellow (Yellow) Urine Appearance Clear (Clear) Urine pH 7.0 (4.6-8.0) Ur Specific [place] 1.015 (1.005-1.030) Urine Protein Negative (Negative) Urine Glucose (UA) >=1000 A (Negative) mg/dL Urine Ketones Negative (Negative) Urine Blood Negative (Negative) Urine Nitrite Negative (Negative) Urine Bilirubin Negative (Negative) Urine Urobilinogen 0.2 (0.2) mg/dL Ur Leukocyte Esterase Small A (Negative) Urine Microscopic RBC 0-2 (0-5) /HPF Urine Microscopic WBC 0-2 (0-5) /HPF Ur Epithelial Cells Rare (None Seen) /HPF Urine Bacteria Rare A (None Seen) /HPF Urine Culture Reflexed NO (NO) Urine HCG, Qual (NEGATIVE) Urine Opiates Level (NEGATIVE) Ur Methadone (NEGATIVE) Urine Barbiturates (NEGATIVE) Ur Phencyclidine (PCP) (NEGATIVE) Urine Amphetamine (NEGATIVE) U Benzodiazepine Level (NEGATIVE) Urine Cocaine (NEGATIVE) Urine Marijuana (THC) (NEGATIVE) - Progress Progress: improved Medical Desision Making - Independent Historian Additional History obtained from: Relative/friend - Diagnostic Testing Diagnostic test were ordered, analyzed, and reviewed by me: Yes Radiological Interpretation: Reviewed by me - Risk of complications Low Risk: Low risk of morbidity from additional dx testing or treatment - Departure Departure Disposition: Home Clinical Impression: Hyperglycemia, Syncope Condition: Stable Critical Care Time: No Referrals: MARCUS ANDERSON NP [Primary Care Provider] - Follow up/PCP as directed
[2023-12-26] MEDS ORDERED: HUMULIN R ONE (07:58)
[2023-12-26] MEDS: HUMULIN R SQ ONE (08:00)
--- NOTE | 2023-12-26 08:44 | XRAY ---
Indication: Syncope Multiple contiguous axial images obtained through the head without contrast. Comparison: February 06, 2022 Normal appearing brain parenchyma, ventricles, and bony calvarium. Visualized paranasal sinuses and mastoid air cells are clear. Impression: Continued normal CT head without contrast exam.
[2023-12-26 09:05] VITALS: BP 116/69; PULSE 88; RESP 21
[2023-12-26 09:06] VITALS: O2SAT 96
== END 2023-12-26 09:11 | disposition home or self-care (01) ==
LOC: ED 06:22
DX: R73.9 Hyperglycemia, unspecified (principal); R55 Syncope and collapse; Z79.84 Long term (current) use of oral hypoglycemic drugs; Z79.899 Other long term (current) drug therapy
CPT/HCPCS: 36415; 70450; 80053; 80307; 81001; 81025; 82947; 84484; 85025; 93005; 96372; 99283; J1815

== ENCOUNTER 2024-02-26 03:20 | Emergency (ER) | payer MEDICAID, OTHER ==
[2024-02-26 03:45] VITALS: TEMP 98
--- NOTE | 2024-02-26 04:02 | ERPHSYRPT ---
- History of Present Illness Time Seen by Provider: 02/26/24 03:45 Source: patient Exam Limitations: no limitations Patient Subjective Stated Complaint: pt states her blood sugar was 350 just prior to coming in to the er. Triage Nursing Assessment: pt alert and oriented, answers questions approp. pt ambualtes into room with steady gait. skin warm and dry. respirations nonlabored. Physician History: 23-year-old female history of diabetes presents to our ED for evaluation of blood sugar. Patient concerned because she states she checked her blood sugar and it was 350 at home. Patient has not been completely compliant with her diabetic medication regimen. No other complaints. No chest pain or shortness of breath. No nausea vomiting or diaphoresis. Symptoms are mild to moderate in intensity. No specific worsening or improving factors. No associated numbness tingling or dizziness. Patient otherwise feels well. She voices no other complaints or concerns at this time. Portions of this note were created with voice recognition technology. There may be grammatical, spelling, punctuation or sound alike errors Timing/Duration: today Severity: moderate Modifying Factors: Improves With: nothing Associated Symptoms: denies symptoms Allergies/Adverse Reactions: peanut Allergy (Severe, Verified 02/26/24 03:44) Difficulty Swallowing Penicillins Allergy (Severe, Verified 02/26/24 03:44) Rash Home Medications: Buspirone HCl 5 mg [Buspar 5 mg] 5 mg PO TID 05/23/22 [History] Escitalopram Oxalate 10 mg PO HS 05/23/22 [History] Prazosin HCl [Minipress] 2 mg PO HS 05/23/22 [History] Ropinirole HCl 0.25 mg PO BID 03/20/23 [History] Sitagliptin Phosphate [Januvia] 100 mg PO DAILY 08/06/23 [History] Cyclobenzaprine HCl 10 mg [Cyclobenzaprine 10 MG] 10 mg PO HS 02/26/24 [History] Metformin HCl 500 mg [Glucophage 500 MG] 500 mg PO BIDWM 02/26/24 [History] Trazodone HCl 50 mg [Desyrel 50 mg] 50 mg PO HS 02/26/24 [History] Hx Tetanus, Diphtheria Vaccination/Date Given: Yes Hx Influenza Vaccination/Date Given: Yes Hx Pneumococcal Vaccination/Date Given: No Immunizations Up to Date: Yes Travel Risk - International Travel Have you traveled outside of the country in past 3 weeks: No - Emerging Infectious Disease Are you exhibiting symptoms associated with any current EIDs: No - Review of Systems Constitutional: No Symptoms, No Fever, No Chills Eyes: No Symptoms Ears, Nose, & Throat: No Symptoms Respiratory: No Symptoms, No Cough, No Dyspnea Cardiac: No Symptoms, No Chest Pain, No Edema, No Syncope Abdominal/Gastrointestinal: No Symptoms, No Abdominal Pain, No Nausea, No Vomiting, No Diarrhea Genitourinary Symptoms: No Symptoms, No Dysuria Musculoskeletal: No Symptoms, No Back Pain, No Neck Pain Skin: No Symptoms, No Rash Neurological: No Symptoms, No Dizziness, No Focal Weakness, No Sensory Changes Psychological: No Symptoms Endocrine: No Symptoms Hematologic/Lymphatic: No Symptoms Immunological/Allergic: No Symptoms All Other Systems: Reviewed and Negative - Past Medical History Pertinent Past Medical History: Yes Neurological History: No Pertinent History ENT History: No Pertinent History Cardiac History: No Pertinent History Respiratory History: No Pertinent History Endocrine Medical History: Diabetes Type II Musculoskeletal History: No Pertinent History GI Medical History: Gallbladder Disease History: No Pertinent History Psycho-Social History: Anxiety, Bipolar, Depression, Other Female Reproductive Disorders: Menstrual Problems, Other Other Medical History: ovarian cyst, MR, personality disorder - Past Surgical History Past Surgical History: Yes Neuro Surgical History: No Pertinent History Cardiac: No Pertinent History Respiratory: No Pertinent History Gastrointestinal: Cholecystectomy Genitourinary: No Pertinent History Musculoskeletal: No Pertinent History Female Surgical History: Other Other Surgical History: ovarian cyst removed surgically. throat stretched Significant Family History: no pertinent family hx - Female History Hx Last Menstrual Period: last month Hx Now: No (unsure) - Social History Smoking Status: Former smoker How long have you smoked: 3 yrs Exposure to second hand smoke: No Drug Use: none Patient Lives Alone: No - Nursing Vital Signs Nursing Vital Signs: Initial Vital Signs Temperature 98 F 02/26/24 03:35 Pulse Rate 89 02/26/24 03:35 Respiratory Rate 16 02/26/24 03:35 Blood Pressure 136/79 02/26/24 03:35 O2 Sat by Pulse Oximetry 97 02/26/24 03:35 Pain Scale Pain Intensity 8 - Physical Exam General Appearance: no apparent distress, alert Eye Exam: PERRL/EOMI, eyes nml inspection Ears, Nose, Throat Exam: normal ENT inspection, TMs normal, pharynx normal, moist mucous membranes Neck Exam: normal inspection, non-tender, supple, full range of motion Respiratory Exam: normal breath sounds, lungs clear, airway intact, No respiratory distress Cardiovascular Exam: regular rate/rhythm, normal heart sounds, normal peripheral pulses Gastrointestinal/Abdomen Exam: soft, normal bowel sounds, No tenderness, No mass Back Exam: normal inspection, normal range of motion, No CVA tenderness, No vertebral tenderness Extremity Exam: normal inspection, normal range of motion, pelvis stable Neurologic Exam: alert, oriented x 3, cooperative, normal mood/affect, sensation nml, No motor deficits Skin Exam: normal color, warm, dry, No rash Lymphatic Exam: No adenopathy SpO2 Interpretation: normal SpO2: 97 O2 Delivery: Room Air - Course Nursing assessment & vital signs reviewed: Yes EKG Interpreted by Me: RATE (81), Sinus Rhythm, NORMAL AXIS, NORMAL INTERVALS, NORMAL QRS Ordered Tests: Active Orders 24 hr Category Date Time Status EKG-ER Only STAT Care 02/26/24 04:38 Ordered POCT GLUCOSE Stat Lab 02/26/24 03:31 Completed Lab/Rad Data: Laboratory Results 02/26/24 Range/Units 03:31 POC Glucometer 279 H (74 to 106) mg/dL - Progress Progress: improved Progress Note: 23-year-old female presents to our ED for evaluation of elevated glucose at home. Patient's glucose was 350. Patient states she has not been compliant with her diabetes medication. Patient blood sugar in our ED was 274. Screening EKG was normal sinus rhythm. No ischemic or acute changes. No indication for further workup at this time. Patient otherwise well. Vital stable. Will discharge home. Patient agrees to follow-up with her primary care doctor within 48 hours for evaluation. Portions of this note were created with voice recognition technology. There may be grammatical, spelling, punctuation or sound alike errors Complexity problem addressed is moderate acute complicated. No critical care time. Complex of data reviewed and analyzed is moderate. Test ordered chest reviewed results analyzed and correlated clinically with history and physical exam. Risk of complication and or risk of morbidity/mortality patient management is low. Vital stable. Time spent discharge patient is approximately 10 minutes. Plan of care established for shared decision making. No social determinants of health present impede follow-up. Portions of this note were created with voice recognition technology. There may be grammatical, spelling, punctuation or sound alike errors 02/26/24 03:58 Counseled pt/family regarding: diagnosis, need for follow-up - Departure Departure Disposition: Home Clinical Impression: Hyperglycemia, Noncompliance with medication regimen Condition: Stable Critical Care Time: No Referrals: MARCUS ANDERSON, SENIOR INDUSTRIAL ENGINEER [Primary Care Provider] - Follow up/PCP as directed Additional Instructions: Discharge/Care Plan MEGANANTONI CRONIN was seen on 02/26/24 in the Emergency Room. The patient was counseled regarding Diagnosis,Lab results, Imaging studies, need for follow up and when to return to the Emergency Room. Prescriptions given: Discharge Note I have spoken with the patient and/or caregivers. I have explained the patient's condition, diagnosis and treatment plan based on the information available to me at this time. I have answered the patient's and/or caregiver's questions and addressed any concerns. The patient and/or caregivers have as good understanding of the patient's diagnosis, condition and treatment plan as can be expected at this point. The vital signs have been stable. The patient's condition is stable and appropriate for discharge from the emergency department. The patient will pursue further outpatient evaluation with the primary care physician or other designated or consulting physician as outlined in the discharge instructions. The patient and/or caregivers are agreeable to this plan of care and follow-up instructions have been explained in detail. The patient and/or caregivers have received these instruction. The patient/and or caregivers are aware that any significant change in condition or worsening of symptoms should prompt an immediate return to this or the closest emergency department or call 911.
[2024-02-26 04:39] VITALS: BP 120/92; PULSE 84; RESP 18
[2024-02-26 04:40] VITALS: O2SAT 97
== END 2024-02-26 04:49 | disposition home or self-care (01) ==
LOC: ED 03:20
DX: E11.65 Type 2 diabetes mellitus with hyperglycemia (principal); Z91.148 Patient's other noncompliance with medication regimen for other reason; Z79.84 Long term (current) use of oral hypoglycemic drugs; Z79.899 Other long term (current) drug therapy
CPT/HCPCS: 82947; 93005; 99283

== ENCOUNTER 2024-03-20 02:37 | Emergency (ER) | payer OTHER ==
[2024-03-20 02:47] VITALS: BP 134/84; PULSE 124; RESP 18; TEMP 97.8; O2SAT 97
--- NOTE | 2024-03-20 02:55 | ERPHSYRPT ---
- History of Present Illness Source: patient, EMS Exam Limitations: no limitations Patient Subjective Stated Complaint: pt states she has anxiety and thinks her anxiety tonight may turn into a panic attack. Triage Nursing Assessment: pt alert and oriented, answers questions approp. pt ambulates to room with steady gait noted. respirations nonlabored with pungs cta bilat. skin warm and dry. pt sitting up in bed using phone, fidgeting occasionally. pt denies suicidal or homicidal ideation. Physician History: 23-year-old female arrived per EMS having a panic attack. Patient denies suicidal and homicidal ideation. She lives with her grandma and has no food or housing insecurity. She has a long history of anxiety and has not been taking her BuSpar properly. Timing/Duration: today Severity of Symptoms-Max: mild Severity of Symptoms-Current: mild Context related to: other ( A long history of anxiety) Associated Symptoms: anxiety Previous symptoms: same symptoms as today Allergies/Adverse Reactions: peanut Allergy (Severe, Verified 03/20/24 02:52) Difficulty Swallowing Penicillins Allergy (Severe, Verified 03/20/24 02:52) Rash Home Medications: Buspirone HCl 5 mg [Buspar 5 mg] 5 mg PO TID 05/23/22 [History] Escitalopram Oxalate 10 mg PO HS 05/23/22 [History] Prazosin HCl [Minipress] 2 mg PO HS 05/23/22 [History] Ropinirole HCl 0.25 mg PO BID 03/20/23 [History] Sitagliptin Phosphate [Januvia] 100 mg PO DAILY 08/06/23 [History] Cyclobenzaprine HCl 10 mg [Cyclobenzaprine 10 MG] 10 mg PO HS 02/26/24 [History] Metformin HCl 500 mg [Glucophage 500 MG] 500 mg PO BIDWM 02/26/24 [History] Trazodone HCl 50 mg [Desyrel 50 mg] 50 mg PO HS 02/26/24 [History] Hx Tetanus, Diphtheria Vaccination/Date Given: Yes Hx Influenza Vaccination/Date Given: Yes Hx Pneumococcal Vaccination/Date Given: No Immunizations Up to Date: Yes Travel Risk - International Travel Have you traveled outside of the country in past 3 weeks: No - Emerging Infectious Disease Are you exhibiting symptoms associated with any current EIDs: No - Past Medical History Pertinent Past Medical History: Yes Neurological History: No Pertinent History ENT History: No Pertinent History Cardiac History: No Pertinent History Respiratory History: No Pertinent History Endocrine Medical History: Diabetes Type II Musculoskeletal History: No Pertinent History GI Medical History: Gallbladder Disease History: No Pertinent History Psycho-Social History: Anxiety, Bipolar, Depression, Other Female Reproductive Disorders: Menstrual Problems, Other Other Medical History: ovarian cyst, MR, personality disorder - Past Surgical History Past Surgical History: Yes Neuro Surgical History: No Pertinent History Cardiac: No Pertinent History Respiratory: No Pertinent History Gastrointestinal: Cholecystectomy Genitourinary: No Pertinent History Musculoskeletal: No Pertinent History Female Surgical History: Other Other Surgical History: ovarian cyst removed surgically. throat stretched Significant Family History: no pertinent family hx - Female History Hx Last Menstrual Period: last month Hx Now: No - Social History Smoking Status: Former smoker How long have you smoked: 3 yrs Exposure to second hand smoke: Yes Drug Use: none Patient Lives Alone: No - Social Determinants of Health Will the patient participate in the screening: Yes Do you worry about a steady place to live?: No Do you have any problems with any of the following?: No known problems In the past 12 months,have you had to go without utilities?: No Transportation Issues: No Has anyone in your support network made you feel unsafe?: No Have you or anyone in your house had to go without enough: No - Review of Systems Constitutional: No Symptoms Eyes: No Symptoms Ears, Nose, & Throat: No Symptoms Respiratory: No Symptoms Cardiac: No Symptoms Abdominal/Gastrointestinal: No Symptoms Genitourinary Symptoms: Incontinence Musculoskeletal: No Symptoms Skin: No Symptoms Neurological: No Symptoms Endocrine: No Symptoms Hematologic/Lymphatic: No Symptoms Immunological/Allergic: No Symptoms - Nursing Vital Signs Nursing Vital Signs: Initial Vital Signs Temperature 97.8 F 03/20/24 02:38 Pulse Rate 124 H 03/20/24 02:38 Respiratory Rate 18 03/20/24 02:38 Blood Pressure 134/84 03/20/24 02:38 O2 Sat by Pulse Oximetry 97 03/20/24 02:38 Pain Scale Pain Intensity 0 tachycardic, mildly hypertensive - Physical Exam General Appearance: no apparent distress, anxiety Eyes, Ears, Nose, Throat Exam: normal ENT inspection, TMs normal, pharynx steve l, moist mucous membranes Neck Exam: normal inspection, non-tender, supple, full range of motion, No Brudzinski, No Kernig's, No meningismus, No carotid bruit Respiratory Exam: normal breath sounds, lungs clear, airway intact Cardiovascular Exam: tachycardia, capillary refill <2 sec, No murmur Gastrointestinal/Abdominal Exam: soft, normal bowel sounds Extremities Exam: normal inspection, normal range of motion Neurological Exam: alert, settlement agent II-XII nml as tested, oriented x 3 Appearance: appropriate appearance, appropriate insight, no memory impairment Behavior/Eye Contact/Speech: alert & cooperative, good eye contact, normal speech Thoughts/Hallucinations: normal thought pattern, no apparent hallucination Skin Exam: normal color, warm, dry SpO2 Interpretation: normal SpO2: 97 O2 Delivery: Room Air - Course Nursing assessment & vital signs reviewed: Yes Ordered Tests: Medication Summary Discontinued Medications Generic Name Dose Route Start Last Admin Trade Name Freq PRN Reason Stop Dose Admin Hydroxyzine HCl 75 mg 03/20/24 02:49 03/20/24 03:01 Hydroxyzine Hcl 100 Mg/2 Ml Vial IM 03/20/24 02:50 75 mg ONCE ONE Administration Hydroxyzine HCl Confirm 03/20/24 02:58 Hydroxyzine Hcl 100 Mg/2 Ml Vial Administered 03/20/24 02:59 Dose 100 mg IM .[employer] ONE - Progress Progress: improved Progress Note: 03/20/24 03:38 Nursing note and vital signs reviewed. No further housing insecurity noted. Patient given 75 mg IM hydroxyzine for acute anxiety attack. She has a history of anxiety and appears not to be taking her BuSpar properly. She was never suicidal or homicidal during her entire ER stay. Discharged in stable condition with instructions to follow-up with her PCP and mental health therapist on Friday discharged in stable condition Counseled pt/family regarding: diagnosis, need for follow-up Medical Desision Making - Independent Historian Additional History obtained from: EMS - External Record(s) Reviewed Records reviewed as a part of evaluation & management: Inpatient - Risk of complications The pt has a mod risk of morbidity or mortality based on: Need for prescription drug management - Departure Departure Disposition: Home Clinical Impression: Anxiety Condition: Stable Critical Care Time: No Referrals: MARCUS ANDERSON NP [Primary Care Provider] - Follow up/PCP as directed Instructions: Anxiety, Adult (DC) Additional Instructions: Follow-up with your family MD or mental health therapist on Friday Return to ER as needed Continue current medications Watch your glucose closely
[2024-03-20] MEDS ORDERED: VISTARIL 100MG/2ML IM ONE (02:58)
[2024-03-20] MEDS: VISTARIL 100MG/2ML IM ONE (03:01)
== END 2024-03-20 03:27 | disposition home or self-care (01) ==
LOC: ED 02:37
DX: F41.9 Anxiety disorder, unspecified (principal); F41.0 Panic disorder [episodic paroxysmal anxiety]; E11.9 Type 2 diabetes mellitus without complications; Z79.84 Long term (current) use of oral hypoglycemic drugs; Z79.899 Other long term (current) drug therapy
CPT/HCPCS: 96372; 99282; J3410

== ENCOUNTER 2024-03-30 01:11 | Emergency (ER) | payer OTHER ==
[2024-03-30 01:29] VITALS: RESP 18; TEMP 97.5; O2SAT 97
--- NOTE | 2024-03-30 01:43 | ERPHSYRPT ---
- History of Present Illness Time Seen by Provider: 03/30/24 01:19 Historian: patient, family Exam Limitations: no limitations Patient Subjective Stated Complaint: sore throat x2 days, vomited x1 approx 20 mins prior to arrival Triage Nursing Assessment: pt ambulatory to bed with family at bedside, pt alert and oriented x3, skin pwd, pt c/o sore throat x2 days and 1 episode of vomiting approx 20 mins prior to arrival. pt states she drank a mountain dew to help her throat and vomited it up right after she drank the bottle. pt states there look ed like there was blood in the vomit but pt is unsure. Physician History: 23 years old female with history of anxiety/depression/diabetes mellitus presented in the ER with an episode of vomiting prior to arrival, nonprojectile, nonbilious. Patient reports she had sore throat for the last couple of days. She had Mountain Dew and after that she threw. It was dark-colored, unsure if it was blood in it or not. She denies minimal abdominal discomfort. No diarrhea reported. Denies having any chest pain palpitations, shortness of breath, dizziness or lightheadedness. Not taking any blood thinners. Patient is recently started on Ozempic and has first shot 4 days ago. No fever or chills reported. Allergies/Adverse Reactions: peanut Allergy (Severe, Verified 03/30/24 01:19) Difficulty Swallowing Penicillins Allergy (Severe, Verified 03/30/24 01:19) Rash Home Medications: Buspirone HCl 5 mg [Buspar 5 mg] 5 mg PO TID 05/23/22 [History] Escitalopram Oxalate 10 mg PO HS 05/23/22 [History] Prazosin HCl [Minipress] 2 mg PO HS 05/23/22 [History] Ropinirole HCl 0.25 mg PO BID 03/20/23 [History] Sitagliptin Phosphate [Januvia] 100 mg PO DAILY 08/06/23 [History] Cyclobenzaprine HCl 10 mg [Cyclobenzaprine 10 MG] 10 mg PO HS 02/26/24 [History] Metformin HCl 500 mg [Glucophage 500 MG] 500 mg PO BIDWM 02/26/24 [History] Trazodone HCl 50 mg [Desyrel 50 mg] 50 mg PO HS 02/26/24 [History] Hx Tetanus, Diphtheria Vaccination/Date Given: Yes Hx Influenza Vaccination/Date Given: Yes Hx Pneumococcal Vaccination/Date Given: No Immunizations Up to Date: No Travel Risk - International Travel Have you traveled outside of the country in past 3 weeks: No - Emerging Infectious Disease Are you exhibiting symptoms associated with any current EIDs: No - Review of Systems Constitutional: No Symptoms Eyes: No Symptoms Ears, Nose, & Throat: Throat Pain, Throat Swelling Respiratory: No Symptoms Cardiac: No Symptoms Abdominal/Gastrointestinal: Abdominal Pain, Nausea, Vomiting Genitourinary Symptoms: No Symptoms Skin: No Symptoms Neurological: No Symptoms Endocrine: No Symptoms Hematologic/Lymphatic: No Symptoms - Past Medical History Pertinent Past Medical History: Yes Neurological History: No Pertinent History ENT History: No Pertinent History Cardiac History: No Pertinent History Respiratory History: No Pertinent History Endocrine Medical History: Diabetes Type II Musculoskeletal History: No Pertinent History GI Medical History: Gallbladder Disease History: No Pertinent History Psycho-Social History: Anxiety, Bipolar, Depression, Other Female Reproductive Disorders: Menstrual Problems, Other Other Medical History: ovarian cyst, MR, personality disorder - Past Surgical History Past Surgical History: Yes Neuro Surgical History: No Pertinent History Cardiac: No Pertinent History Respiratory: No Pertinent History Gastrointestinal: Cholecystectomy Genitourinary: No Pertinent History Musculoskeletal: No Pertinent History Female Surgical History: Other Other Surgical History: ovarian cyst removed surgically. throat stretched Significant Family History: no pertinent family hx - Female History Hx Last Menstrual Period: 03/30/24 Hx Now: No - Social History Smoking Status: Former smoker How long have you smoked: 3 yrs Exposure to second hand smoke: Yes Drug Use: none Patient Lives Alone: No - Social Determinants of Health Will the patient participate in the screening: Yes Do you worry about a steady place to live?: No Do you have any problems with any of the following?: No known problems In the past 12 months,have you had to go without utilities?: No Transportation Issues: No Has anyone in your support network made you feel unsafe?: No Have you or anyone in your house had to go without enough: No - Nursing Vital Signs Nursing Vital Signs: Initial Vital Signs Temperature 97.5 F 03/30/24 01:19 Pulse Rate 110 H 03/30/24 01:19 Respiratory Rate 18 03/30/24 01:19 Blood Pressure 127/88 03/30/24 01:19 O2 Sat by Pulse Oximetry 97 03/30/24 01:19 Pain Scale Pain Intensity 0 - Physical Exam General Appearance: no apparent distress, alert Eye Exam: PERRL/EOMI Ears, Nose, Throat Exam: moist mucous membranes, pharyngeal erythema Neck Exam: normal inspection, non-tender, supple, full range of motion Respiratory Exam: normal breath sounds Cardiovascular Exam: normal heart sounds, tachycardia Gastrointestinal/Abdomen Exam: soft, normal bowel sounds, No tenderness Extremity Exam: normal inspection, normal range of motion, pelvis stable Neurologic Exam: alert, oriented x 3, cooperative Skin Exam: normal color SpO2 Interpretation: normal SpO2: 97 O2 Delivery: Room Air Ordered Tests: Medication Summary Discontinued Medications Generic Name Dose Route Start Last Admin Trade Name Freq PRN Reason Stop Dose Admin Ondansetron HCl 4 mg 03/30/24 02:10 03/30/24 02:17 Zofran 4 Mg/Udtablet Orally Disintegrating PO 03/30/24 02:11 4 mg STAT ONE Administration Ondansetron HCl Confirm 03/30/24 02:17 Zofran 4 Mg/Udtablet Orally Disintegrating Administered 03/30/24 02:18 Dose 4 mg .ROUTE .[employer] ONE Lab/Rad Data: Laboratory Result Diagrams 03/30/24 02:15 03/30/24 02:15 Laboratory Results 03/30/24 03/30/24 03/30/24 Range/Units 02:30 02:30 02:15 WBC (3.98-10.04) x10^3/uL RBC (3.93-5.22) x10^6/uL Hgb (11.2-15.7) g/dL Hct (34.1-44.9) % MCV (79.4-94.8) fL MCH (25.6-32.2) pg MCHC (32.2-35.5) g/dL RDW (11.7-14.4) % Plt Count (182-369) x10^3/uL MPV (9.4-12.3) fL Gran % (34.0-71.1) % Immature Gran % (Auto) (0.001-0.429) % Nucleat RBC Rel Count (0.00-0.2) % Eos # (Auto) (0.04-0.36) x10^3/uL Immature Gran # (Auto) (0.001-0.031) x10^3u/L Absolute Lymphs (auto) (1.18-3.74) x10^3/uL Absolute Monos (auto) (0.24-0.86) x10^3/uL Absolute Nucleated RBC (0.00-0.012) x10^3u/L Lymphocytes % (19.3-51.7) % Monocytes % (4.7-12.5) % Eosinophils % (0.7-5.8) % Basophils % (0.1-1.2) % Absolute Granulocytes (1.56-6.13) x10^3/uL Basophils # (0.01-0.08) x10^3/uL pO2/FiO2 Ratio % VBG pH (7.32-7.42) VBG pCO2 at Pat Temp (42-55) mm/Hg VBG pO2 at Pat Temp (25-40) mm/Hg VBG HCO3 (22-28) meq/L VBG O2 Sat (Lanie) (95-100) VBG Base Excess (-2.0-2.0) VBG Hemoglobin VBG Carboxyhemoglobin (0.0-6.9) % T HGB POC Potassium (3.5-5.1) Sodium 140 (135-145) mmol/L Potassium 3.6 (3.5-5.1) mmol/L Chloride 105 (98-107) mmol/L Carbon Dioxide 24 (22-30) mmol/L Anion Gap 14.0 (5-15) MEQ/L BUN 10 (7-17) mg/dL Creatinine 0.48 L (0.52-1.04) mg/dL Estimated GFR 137.3 ML/MIN Glucose 209 H (74-106) mg/dL Calcium 9.8 (8.4-10.2) mg/dL Total Bilirubin 0.30 (0.2-1.3) mg/dL AST 72 H (14-36) U/L ALT 58 H (0-35) U/L Alkaline Phosphatase 100 (38-126) U/L Serum Total Protein 6.9 (6.3-8.2) g/dL Albumin 4.0 (3.5-5.0) g/dL Lipase 20 L (23-300) U/L Urine Color Yellow (Yellow) Urine Appearance Clear (Clear) Urine pH 5.5 (4.6-8.0) Ur Specific [place] >=1.030 A (1.005-1.030) Urine Protein Trace A (Negative) Urine Glucose (UA) >=1000 A (Negative) mg/dL Urine Ketones Trace A (Negative) Urine Blood Large A (Negative) Urine Nitrite Negative (Negative) Urine Bilirubin Negative (Negative) Urine Urobilinogen 0.2 (0.2) mg/dL Ur Leukocyte Esterase Negative (Negative) U Hyaline Cast (Auto) NONE SEEN (0-2) /LPF Urine Microscopic RBC 0-2 (0-5) /HPF Urine Microscopic WBC 0-2 (0-5) /HPF Ur Epithelial Cells Rare (None Seen) /HPF Urine Bacteria Few A (None Seen) /HPF Urine Culture Reflexed YES (NO) Urine HCG, Qual NEGATIVE (NEGATIVE) Group A Strep Antibody (NEGATIVE) 03/30/24 03/30/24 03/30/24 Range/Units 02:15 02:10 01:40 WBC 5.6 (3.98-10.04) x10^3/uL RBC 4.40 (3.93-5.22) x10^6/uL Hgb 11.8 (11.2-15.7) g/dL Hct 37.3 (34.1-44.9) % MCV 84.8 (79.4-94.8) fL MCH 26.8 (25.6-32.2) pg MCHC 31.6 L (32.2-35.5) g/dL RDW 14.9 H (11.7-14.4) % Plt Count 165 L (182-369) x10^3/uL MPV 11.1 (9.4-12.3) fL Gran % 61.7 (34.0-71.1) % Immature Gran % (Auto) 0.4 (0.001-0.429) % Nucleat RBC Rel Count 0.0 (0.00-0.2) % Eos # (Auto) 0.09 (0.04-0.36) x10^3/uL Immature Gran # (Auto) 0.02 (0.001-0.031) x10^3u/L Absolute Lymphs (auto) 1.50 (1.18-3.74) x10^3/uL Absolute Monos (auto) 0.50 (0.24-0.86) x10^3/uL Absolute Nucleated RBC 0.00 (0.00-0.012) x10^3u/L Lymphocytes % 26.9 (19.3-51.7) % Monocytes % 9.0 (4.7-12.5) % Eosinophils % 1.6 (0.7-5.8) % Basophils % 0.4 (0.1-1.2) % Absolute Granulocytes 3.45 (1.56-6.13) x10^3/uL Basophils # 0.02 (0.01-0.08) x10^3/uL pO2/FiO2 Ratio 21.0 % VBG pH 7.45 H (7.32-7.42) VBG pCO2 at Pat Temp 35 L (42-55) mm/Hg VBG pO2 at Pat Temp 58 H (25-40) mm/Hg VBG HCO3 24.3 (22-28) meq/L VBG O2 Sat (Lanie) 91.5 L (95-100) VBG Base Excess 0.7 (-2.0-2.0) VBG Hemoglobin 13.0 VBG Carboxyhemoglobin 3.8 (0.0-6.9) % T HGB POC Potassium 3.7 (3.5-5.1) Sodium (135-145) mmol/L Potassium (3.5-5.1) mmol/L Chloride (98-107) mmol/L Carbon Dioxide (22-30) mmol/L Anion Gap (5-15) MEQ/L BUN (7-17) mg/dL Creatinine (0.52-1.04) mg/dL Estimated GFR ML/MIN Glucose (74-106) mg/dL Calcium (8.4-10.2) mg/dL Total Bilirubin (0.2-1.3) mg/dL AST (14-36) U/L ALT (0-35) U/L Alkaline Phosphatase (38-126) U/L Serum Total Protein (6.3-8.2) g/dL Albumin (3.5-5.0) g/dL Lipase (23-300) U/L Urine Color (Yellow) Urine Appearance (Clear) Urine pH (4.6-8.0) Ur Specific [place] (1.005-1.030) Urine Protein (Negative) Urine Glucose (UA) (Negative) mg/dL Urine Ketones (Negative) Urine Blood (Negative) Urine Nitrite (Negative) Urine Bilirubin (Negative) Urine Urobilinogen (0.2) mg/dL Ur Leukocyte Esterase (Negative) U Hyaline Cast (Auto) (0-2) /LPF Urine Microscopic RBC (0-5) /HPF Urine Microscopic WBC (0-5) /HPF Ur Epithelial Cells (None Seen) /HPF Urine Bacteria (None Seen) /HPF Urine Culture Reflexed (NO) Urine HCG, Qual (NEGATIVE) Group A Strep Antibody NOT DETECTED (NEGATIVE) - Progress Progress: improved Progress Note: 03/30/24 23 years old is evaluated for abdominal discomfort with a nonprojectile nonbilious vomiting with questionable blood after having Mountain Dew. Patient did have some sandwich before that. During my exam she does not have any tenderness. Normoactive bowel sounds in all 4 quadrants. Workup showed normal white count, hemoglobin of 11.8 which is close to baseline. Platelets 165. Patient has normal pH, no elevated gap or low bicarb. Patient is not in DKA. This could be a side effect of Ozempic versus gastritis versus viral gastroenteritis. Chemistries fairly unremarkable. No UTI. Feeling much better on reevaluation after symptomatic treatment. Recommended outpatient follow-up and monitoring of glucose. Discussed signs symptoms of worsening needing return to ER which she seems understanding. Stable for discharge. Counseled pt/family regarding: lab results, diagnosis, need for follow-up Medical Desision Making - Diagnostic Testing Diagnostic test were ordered, analyzed, and reviewed by me: Yes - Risk of complications The pt has a mod risk of morbidity or mortality based on: Need for prescription drug management - Departure Clinical Impression: Nausea and vomiting, Pharyngitis Condition: Stable Critical Care Time: No Referrals: MARCUS ANDERSON NP [Primary Care Provider] - Follow up with PCP 1 day Instructions: Nausea and Vomiting, Adult ED Additional Instructions: Drink plenty of fluids. Take Zofran as needed. Follow-up with primary care for reevaluation. Monitor your glucose regularly, keep a log and follow-up with PCP. Return to ER for any worsening of symptoms like intractable vomiting/abdominal pain or if develop fever chills etc. Prescriptions: Ondansetron ODT 4 MG [Zofran Odt 4 mg] 1 ea PO QIDPRN PRN #7 tablet PRN Reason: n/v
[2024-03-30 02:17] LABS: Absolute Neutrophil Ct (ANC) 3.45 x10^3/uL (1.56-6.13); BASOPHIL % 0.4 % (0.1-1.2); Basophil (Absolute #) 0.02 x10^3/uL (0.01-0.08); Eosinophil % 1.6 % (0.7-5.8); Eosinophil (Absolute #) 0.09 x10^3/uL (0.04-0.36); Hematocrit 37.3 % (34.1-44.9); Hemoglobin 11.8 g/dL (11.2-15.7); IMMATURE GRAN # 0.02 x10^3u/L (0.001-0.031); IMMATURE GRAN % 0.4 % (0.001-0.429); Lymphocytes % 26.9 % (19.3-51.7); Mean Cell Volume 84.8 fL (79.4-94.8); Mean Corpuscular Hemoglobin 26.8 pg (25.6-32.2); Mean Corpuscular Hgb Concent. 31.6 g/dL (32.2-35.5); Mean Platelet Volume 11.1 fL (9.4-12.3); Neutrophil % 61.7 % (34.0-71.1); Platelet Count 165 x10^3/uL (182-369); Red Cell Distribution Width 14.9 % (11.7-14.4); White Blood Count 5.6 x10^3/uL (3.98-10.04)
[2024-03-30] MEDS ORDERED: ZOFRAN ODT 4 MG ONE (02:17)
[2024-03-30] MEDS: ZOFRAN ODT 4 MG PO ONE (02:17)
[2024-03-30 02:28] LABS: VBG BASE EXCESS 0.7 (-2.0-2.0); VBG CARBOXYHEMOGLOBIN 3.8 % T HGB (0.0-6.9); VBG HCO3- 24.3 meq/L (22-28); VBG O2 SATURATION 91.5 (95-100); VBG POTASSIUM 3.7 (3.5-5.1); VBG pH 7.45 (7.32-7.42)
[2024-03-30 02:30] LABS: BILIRUBIN,TOTAL 0.3 mg/dL (0.2-1.3); Calcium 9.8 mg/dL (8.4-10.2); Creatinine 1 0.48 mg/dL (0.52-1.04); EST GLOMERULAR FILTRATION RATE 137.3 ML/MIN; Potassium 3.6 mmol/L (3.5-5.1); Total Protein 6.9 g/dL (6.3-8.2)
[2024-03-30 02:46] LABS: HCG URINE TEST NEGATIVE (NEGATIVE)
[2024-03-30 02:49] LABS: ADD URINE CULTURE? YES (NO); Appearance Clear (Clear); Bacteria Few /HPF (None Seen); Bilirubin Negative (Negative); Blood Large (Negative); Epithelial Cells Rare /HPF (None Seen); Glucose, Urine >=1000 mg/dL (Negative); Hyaline Casts NONE SEEN /LPF (0-2); Ketones Trace (Negative); Leukocyte Esterase Negative (Negative); Nitrite Negative (Negative); Ph 5.5 (4.6-8.0); Protein,Urine Dip Trace (Negative); RBC 0-2 /HPF (0-5); Specific Gravity >=1.030 (1.005-1.030); Urobilinogen 0.2 mg/dL (0.2); WBC 0-2 /HPF (0-5)
[2024-03-30 03:09] VITALS: BP 115/70; PULSE 88
== END 2024-03-30 03:14 | disposition home or self-care (01) ==
LOC: ED 01:11
DX: R11.2 Nausea with vomiting, unspecified (principal); J02.9 Acute pharyngitis, unspecified; E11.9 Type 2 diabetes mellitus without complications; Z79.85 Long-term (current) use of injectable non-insulin antidiabetic drugs; Z79.84 Long term (current) use of oral hypoglycemic drugs
CPT/HCPCS: 36415; 80053; 81001; 81025; 82805; 83690; 85025; 87086; 87651; 99283; Q0162

== ENCOUNTER 2024-06-28 05:28 | Emergency (ER) | payer OTHER ==
[2024-06-28 05:44] VITALS: RESP 18; TEMP 97.8
[2024-06-28] MEDS ORDERED: XYLOCAINE 1% HCL 20 ML MDV ONE (06:38)
[2024-06-28] MEDS: XYLOCAINE 1% HCL 20 ML MDV IJ ONE (06:39)
--- NOTE | 2024-06-28 06:57 | XRAY ---
CLINICAL HISTORY: fall, pain COMPARISON: No prior study for comparison. TECHNIQUE: An axial non-contrast CT scan of the brain was performed from the skull base to the high parietal region. One of the following dose reduction techniques was utilized for this exam: Automated exposure control, adjustment of the mA and/or kV according to patient size, and use of iterative reconstruction. CTDI: 53.92 mGy*cm. FINDINGS: Brain Parenchyma: Normal attenuation of the cerebral hemispheres, cerebellum, and brainstem. No evidence of acute infarct, hemorrhage, or mass effect. No abnormal areas of hypo- or hyperattenuation. Ventricular System: Ventricles are normal in size and configuration. No evidence of hydrocephalus or ventricular enlargement. Subarachnoid Spaces: Normal sulci and cisterns. No evidence of subarachnoid hemorrhage or extra-axial fluid collections. Cerebellum and Brainstem: Normal size and signal. No masses, lesions, or areas of abnormal density. Orbits: Normal appearance of the globes, optic nerves, and extraocular muscles. No evidence of orbital masses or abnormal density Sinuses: Clear paranasal sinuses. No evidence of sinusitis or mucosal thickening. Mastoid Air Cells: Clear mastoid air cells. No evidence of mastoiditis. Skull and Meninges: Normal skull morphology. No evidence of meningeal thickening. Lucency in the right nasal bone may be a prominent suture/fracture line. Clinical correlation with point tenderness is recommended. IMPRESSION: 1. No calvarial fracture line is appreciated. 2. No intracranial hemorrhage is appreciated. 3. Lucency in the right nasal bone may be a prominent suture/fracture line. Clinical correlation with point tenderness is recommended. Electronically Signed by: Lilly Johnson MD. (06/28/2024 06:53:00 EDT)
--- NOTE | 2024-06-28 06:59 | ERPHSYRPT ---
- History of Present Illness Source: patient, family Exam Limitations: no limitations Patient Subjective Stated Complaint: pt states that she fell off a step ladder. pt states she hit her head Triage Nursing Assessment: pt came into the er via ambulance; pt was transfer to per self; pt is axo x4; c/o laceration; pt states 10/10 pain to head; laceration to lower back of the head measures 0.8 cm; laceration to left posterior head measures 1.8 cm; minimal bleeding present; c/o N/V; skin PDW; no respiratory distress present; hypertensive Hx Tetanus, Diphtheria Vaccination/Date Given: Yes Hx Influenza Vaccination/Date Given: Yes Hx Pneumococcal Vaccination/Date Given: No <RAHUL ELLER - Last Filed: 06/28/24 06:53> - History of Present Illness Hx Tetanus, Diphtheria Vaccination/Date Given: No (Uptodate) <VINAY IBARRA - Last Filed: 06/28/24 20:06> - History of Present Illness Time Seen by Provider: 06/28/24 06:52 Physician History: 23 years old female updated with tetanus presented in the ER after she fell backward on a 3 step ladder hitting the concrete. No loss of consciousness. She has a laceration on the right parietal and occipital area. Patient reported nausea and vomited times once prior to arrival. Denies any neck pain. No injury anywhere else. Reports 7/10 intensity pain in the area of lacerations. Minimal bleeding which is stopped with pressure application prior to arrival. Denies any numbness tingling focal weakness. No visual disturbance. No chest pain palpitations or shortness of breath. (RAHUL ELLER) Allergies/Adverse Reactions: peanut Allergy (Severe, Verified 06/28/24 05:34) Difficulty Swallowing Penicillins Allergy (Severe, Verified 06/28/24 05:34) Rash Home Medications: Buspirone HCl 5 mg [Buspar 5 mg] 5 mg PO TID 05/23/22 [History] Escitalopram Oxalate 10 mg PO HS 05/23/22 [History] Prazosin HCl [Minipress] 2 mg PO HS 05/23/22 [History] Ropinirole HCl 0.25 mg PO BID 03/20/23 [History] Sitagliptin Phosphate [Januvia] 100 mg PO DAILY 08/06/23 [History] Metformin HCl 500 mg [Glucophage 500 MG] 500 mg PO BIDWM 02/26/24 [History] Trazodone HCl 50 mg [Desyrel 50 mg] 50 mg PO HS 02/26/24 [History] Semaglutide [Ozempic] 2 mg SQ WEEKLY 06/28/24 [History] Travel Risk - International Travel Have you traveled outside of the country in past 3 weeks: No - Emerging Infectious Disease Are you exhibiting symptoms associated with any current EIDs: No <RAHUL ELLER - Last Filed: 06/28/24 06:53> - Review of Systems Constitutional: No Symptoms Eyes: No Symptoms Ears, Nose, & Throat: No Symptoms Respiratory: No Symptoms Cardiac: No Symptoms Abdominal/Gastrointestinal: No Symptoms Genitourinary Symptoms: No Symptoms Musculoskeletal: Injury Skin: Skin Lesions Neurological: Headache Endocrine: No Symptoms Hematologic/Lymphatic: No Symptoms <RAHUL ELLER - Last Filed: 06/28/24 06:53> - Past Medical History Pertinent Past Medical History: Yes Neurological History: No Pertinent History ENT History: No Pertinent History Cardiac History: No Pertinent History Respiratory History: No Pertinent History Endocrine Medical History: Diabetes Type II Musculoskeletal History: No Pertinent History GI Medical History: Gallbladder Disease History: No Pertinent History Psycho-Social History: Anxiety, Bipolar, Depression, Other Female Reproductive Disorders: Menstrual Problems, Other Other Medical History: ovarian cyst, MR, personality disorder - Past Surgical History Past Surgical History: Yes Neuro Surgical History: No Pertinent History Cardiac: No Pertinent History Respiratory: No Pertinent History Gastrointestinal: Cholecystectomy Genitourinary: No Pertinent History Musculoskeletal: No Pertinent History Female Surgical History: Other Other Surgical History: ovarian cyst removed surgically. throat stretched Significant Family History: no pertinent family hx - Female History Hx Last Menstrual Period: 06/22 Hx Now: No - Social History Smoking Status: Former smoker How long have you smoked: 3 yrs Exposure to second hand smoke: Yes Drug Use: none Patient Lives Alone: No - Social Determinants of Health Will the patient participate in the screening: Yes Do you worry about a steady place to live?: No Do you have any problems with any of the following?: No known problems In the past 12 months,have you had to go without utilities?: No Transportation Issues: No Has anyone in your support network made you feel unsafe?: No Have you or anyone in your house had to go without enough: No <RAHUL ELLER - Last Filed: 06/28/24 06:53> - Tay Coma Score Best Eye Response (Vale): (4) open spontaneously Best Verbal Response (Vale): (5) oriented Best Motor Response (Tay): (6) obeys commands Vale Total: 15 - Physical Exam General Appearance: no apparent distress, alert Head Injury: lacerations (2 lacerations 1 on the left parietal 1.5 cm, occipital 0.8 cm with no active spurting or oozing. Tenderness around. No step in deformity.), tenderness Eye Exam: PERRL/EOMI, eyes nml inspection ENT Exam: airway nml, No evidence of ENT injury, No dental injury Neck Exam: supple, trachea midline, full range of motion, normal alignment, normal inspection Respiratory/Chest Exam: normal breath sounds, respiratory distress, No chest tenderness Cardiovascular Exam: normal heart sounds, regular rate/rhythm Gastrointestinal Exam: soft, normal bowel sounds, No tenderness Back Exam: normal inspection, normal range of motion, No CVA tenderness Extremity Exam: normal inspection, normal range of motion Neurologic Exam: alert, oriented x 3, cooperative, interior design project manager II-XII nml as tested, nml cerebellar function, nml station & gait, sensation nml, No motor deficits Skin Exam: normal color SpO2 Interpretation: normal SpO2: 95 O2 Delivery: Room Air <RAHUL ELLER - Last Filed: 06/28/24 06:53> - Nursing Vital Signs Nursing Vital Signs: Initial Vital Signs Pulse Rate 95 H 06/28/24 05:30 Blood Pressure 143/102 06/28/24 05:30 O2 Sat by Pulse Oximetry 95 06/28/24 05:30 Pain Scale Pain Intensity 10 Procedures - Laceration/Wound Repair Head Time of Procedure: 06:57 Wound Location: head Wound Length (cm): 2.3 Wound's Depth, Shape: superficial, into muscle Wound Explored: clean Irrigated: Yes Hibiclens Prep: Yes Anesthesia: 1% Lidocaine Volume Anesthetic (ccs): 3 Wound Repaired With: [facility] Number of Sutures: 3 Layer Closure?: No <RAHUL ELLER - Last Filed: 06/28/24 06:53> - Course Nursing assessment & vital signs reviewed: Yes <VINAY BIARRA - Last Filed: 06/28/24 20:06> Ordered Tests: Active Orders 24 hr Category Date Time Status CERVICAL SPINE WO CONTRAST [CT] Stat Exams 06/28/24 05:45 Completed HEAD WITHOUT CONTRAST [CT] Stat Exams 06/28/24 05:45 Completed Medication Summary Discontinued Medications Generic Name Dose Route Start Last Admin Trade Name Rohini PRN Reason Stop Dose Admin Lidocaine HCl 5 ml 06/28/24 06:38 06/28/24 06:39 Lidocaine Hcl 1% 20 Ml Mdv 20 Ml Ml IJ 06/28/24 06:39 5 ml STAT ONE Administration Lidocaine HCl Confirm 06/28/24 06:38 Lidocaine Hcl 1% 20 Ml Mdv 20 Ml Ml Administered 06/28/24 06:39 Dose 5 ml .ROUTE .STK-MED ONE - Progress Progress: improved <RAHUL ELLER - Last Filed: 06/28/24 06:53> - Progress Progress: re-examined (The patient remains stable, CT Head demonstrated, hair line Nasal Bone Fracture, other orozco negative.) <VINAY IBARRA - Last Filed: 06/28/24 20:06> - Progress Progress Note: 06/28/24 06:57 23 years old is evaluated in the ER after she fell backward on a 3 step ladder prior to arrival with laceration to the occipital and left parietal area. Has no step in deformity. Nonfocal neuroexam. Did have vomiting times once. No cervical spine tenderness. Laceration is repaired. CT head and cervical spines are pending. Care is transferred to Dr. Simpson at end of my shift for reevaluation and final disposition (RAHUL ELLER) 06/28/24 08:[address] head and Cervical Spine demonstrated hair line fracture of the Nasal Bone, other orozco negative for other findings. The patient was updated with the above results. DC Home. Tylenol/ Ibuprofen as needed for the pain. Staple removal in 5 days. (VINAY IBARRA) Medical Desision Making - Independent Historian Additional History obtained from: Mother - Risk of complications Minimal Risk: Minimal risk of morbidity <VINAY IBARRA - Last Filed: 06/28/24 20:06> <RAHUL ELLER - Last Filed: 06/28/24 06:53> - Departure Departure Disposition: Home Critical Care Time: No <VINAY IBARRA - Last Filed: 06/28/24 20:06> - Departure Clinical Impression: Head injury due to trauma, Nasal bone fracture, Laceration of scalp Condition: Stable Referrals: MARCUS ANDERSON PIPE STRESS ENGINEER [Primary Care Provider] - Follow up/PCP as directed Instructions: Wound Care (DC), Laceration Repair With [facility] (DC) Additional Instructions: Follow up with family MD in 5 days for Kimberli Removal
[2024-06-28 07:01] VITALS: PULSE 97
--- NOTE | 2024-06-28 07:01 | XRAY ---
CLINICAL HISTORY: fall, pain COMPARISON: No previous studies are available for comparison. TECHNIQUE: A CT scan of the cervical spine was performed without the administration of intravenous contrast. Contiguous axial images were obtained from the skull base to the upper thoracic spine. Coronal and sagittal reformatted images were also reviewed. One of the following dose-reduction techniques was utilized for this exam. Automated exposure control, adjustment of the mA and/or kV according to patient size, and use of iterative reconstruction. CTDI: 53.92 mGy*cm. FINDINGS: Vertebrae: The vertebral bodies are normal in height and alignment. No evidence of acute fracture or dislocation. The cortical and trabecular bone patterns are normal. No signs of lytic or sclerotic lesions. Normal configuration of the posterior elements. C5-6 marginal anterior osteophytosis noted. Intervertebral Discs: Suggestion of C5-6 minimal posterior disc bulge. The intervertebral disc spaces are preserved. No evidence of significant disc bulging or herniation. No calcifications or ossifications were noted within the discs. Facet Joints: The facet joints are normal without evidence of dislocation, subluxation, or significant degenerative changes. Neural Foramina: The neural foramina is patent bilaterally at all levels. No evidence of foraminal narrowing or nerve root compression. Prevertebral Soft Tissues: The prevertebral soft tissues are normal in thickness without evidence of mass or abnormal fluid collection. Additional Findings: No other significant findings are noted in the visualized soft tissue structures or bony elements. IMPRESSION: 1. No evidence of acute fracture or dislocation. 2. C5-6 marginal osteophytes related to early spondylosis. Suggestion of C5-6 minimal posterior disc bulge Electronically Signed by: Lilly Johnson MD. (06/28/2024 06:56:06 EDT)
[2024-06-28 08:13] VITALS: BP 140/78; O2SAT 96
== END 2024-06-28 08:15 | disposition home or self-care (01) ==
LOC: ED 05:28
DX: S01.01XA Laceration without foreign body of scalp, initial encounter (principal); S02.2XXA Fracture of nasal bones, initial encounter for closed fracture; W11.XXXA Fall on and from ladder, initial encounter; E11.9 Type 2 diabetes mellitus without complications; Z79.84 Long term (current) use of oral hypoglycemic drugs; Z79.85 Long-term (current) use of injectable non-insulin antidiabetic drugs; Z79.899 Other long term (current) drug therapy
CPT/HCPCS: 12001; 70450; 72125; 96372; 99284